=== PATIENT | female | born 1955 | race Caucasian/White ===

== ENCOUNTER → 2016-07-03 | Outpatient (CLI) | payer MEDICARE, MEDICAID ==
[~2016-07-03] MED LIST: ALBU8.5HRX IH; ALPR1TAB2 PO; ASPI-586 PO; CYCL10TA45 PO; LEVO125T6 PO; MELO7.5T46 PO; METO-272 PO; NITR0.4T SL; OXYC1TAB16 PO; PANT40TA2 PO; PRAV40TA2 PO; PREG200C PO; WARF5TAB PO; WATER PILL
--- OUTSIDE RECORDS SUMMARY | 2016-07-03 09:38 | XMS REPORT | Continuity of Care Document ---
Author Author [facility] Organization [facility] Address Unknown Phone Unavailable Care Team Providers Care Housesmith Name Role Phone SAMUEL THOMPSON DO PCP Insurance Providers Payer Name Policy Number Subscriber Name Relationship [employer] [id number] Shanita Perez 18 Self / Same As Patient Comm Crossover Enter Ins Name [id number] Shanita Perez 18 Self / Same As Patient Advance Directives Directive Response Recorded Date/Time Advance Directives No 12/15/15 6:52am Health Care Power of Link Cutter No 12/15/15 6:52am Organ Donor No 12/15/15 6:52am Problems No problem information available. Medications Current Home Medications Medication Dose Units Route Directions Days/Qty Instructions Start Date Metoprolol Succinate 50 Mg 50 Mg Oral Daily 12/20/14 Oxycodone Hcl/Acetaminophen 1 Each 1 Each Oral Every 4HRS as needed for Pain 12/20/14 Levothyroxine Sodium (Levothroid) 125 Mcg 1 Each Oral Daily 12/20/14 Albuterol Sulfate 8 Gm 8 Gm Inhalation as needed for Prn 12/20/14 Nitroglycerin 0.4 Mg 0.4 Mg Sublingual As Needed 12/20/14 Aspirin 81 Mg 81 Mg Oral 12/15/15 Pregabalin 200 Mg 200 Mg Oral Twice A Day 12/15/15 Pravastatin Sodium 40 Mg 40 Mg Oral Daily 12/15/15 Meloxicam 7.5 Mg 7.5 Mg Oral 12/15/15 [Water Pill] 12/15/15 Pantoprazole Sodium 40 Mg 40 Mg Oral Daily 12/15/15 Past Home Medications Medication Directions Ordered Status Warfarin Sodium 5 Mg Tablet, 5 Mg Oral Daily 12/20/14 Discontinued Alprazolam 1 Mg Tablet, 1 Mg Oral Three Times A Day 12/20/14 Discontinued Cyclobenzaprine Hcl 10 Mg Tablet, 10 Mg Oral Three Times A Day 12/20/14 Discontinued Social History Social History Problem Response Recorded Date/Time Recent Foreign Travel No 12/26/2015 8:58am Do you dip or chew tobacco? No 12/20/2014 12:00pm Hospital Discharge Instructions No hospital discharge instructions. Plan of Care Prescriptions See Medication Section Functional Status No functional status results. Allergies, Adverse Reactions, Alerts Allergen Type Severity Reaction Status Last Updated Iodinated Contrast Media - IV Dye Allergy Unknown Active 12/15/15 Morphine Allergy Unknown Active 12/15/15 Codeine Allergy Unknown Active 12/15/15 Aspirin Allergy Unknown Active 12/15/15 prednisone ([id number]) Allergy Unknown Active 12/20/14 Immunizations No immunization records. Vital Signs No known vital signs results. Results Laboratory Results Test Name Result Units Flags Reference Collection Date/Time Result Date/ Time Comments White Blood Count 6.2 10^3/uL 4.3-11.0 12/26/2015 9:12/26/2015 9: 23am Red Blood Count 5.07 10^6/uL 4.35-5.85 12/26/2015 9:12/26/2015 9: 23am Hemoglobin 15.0 G/DL 11.5-16.0 12/26/2015 9:12/26/2015 9:23am Hematocrit 45 % 35-52 12/26/2015 9:12/26/2015 9:23am Mean Corpuscular Volume 89 FL 80-99 12/26/2015 9:12/26/2015 9: 23am Mean Corpuscular Hemoglobin 30 PG 25-34 12/26/2015 9:12/26/2015 9: 23am Mean Corpuscular Hemoglobin Concent 33 G/DL 32-36 12/26/2015 9:04/2016 9:23am Red Cell Distribution Width 14.0 % 10.0-14.5 12/26/2015 9:2015 9:23am Platelet Count 283 10^3/uL 130-400 12/26/2015 9:12/26/2015 9:23am Mean Platelet Volume 11.0 FL H 7.4-10.4 12/26/2015 9:12/26/2015 9: 23am Neutrophils (%) (Auto) 54 % 42-75 12/26/2015 9:12/26/2015 9:23am Lymphocytes (%) (Auto) 31 % 12-44 12/26/2015 9:12/26/2015 9:23am Monocytes (%) (Auto) 9 % 0-12 12/26/2015 9:12/26/2015 9:23am Eosinophils (%) (Auto) 6 % 0-10 12/26/2015 9:12/26/2015 9:23am Basophils (%) (Auto) 0 % 0-10 12/26/2015 9:12/26/2015 9:23am Neutrophils # (Auto) 3.4 X 10^3 1.8-7.8 12/26/2015 9:12/26/2015 9: 23am Lymphocytes # (Auto) 1.9 X 10^3 1.0-4.0 12/26/2015 9:12/26/2015 9: 23am Monocytes # (Auto) 0.5 X 10^3 0.0-1.0 12/26/2015 9:12/26/2015 9: 23am Eosinophils # (Auto) 0.4 10^3/uL H 0.0-0.3 12/26/2015 9:12/26/2015 9 :23am Basophils # (Auto) 0.0 10^3/uL 0.0-0.1 12/26/2015 9:12/26/2015 9: 23am Sodium Level 138 MMOL/L 135-145 12/26/2015 9:12/26/2015 9:55am Potassium Level 4.5 MMOL/L 3.6-5.0 12/26/2015 9:12/26/2015 9:55am Chloride Level 104 MMOL/L 98-107 12/26/2015 9:12/26/2015 9:55am Carbon Dioxide Level 28 MMOL/L 21-32 12/26/2015 9:12/26/2015 9: 55am Anion Gap 6 MMOL/L 5-14 12/26/2015 9:12/26/2015 9:55am Blood Urea Nitrogen 26 MG/DL H 7-18 12/26/2015 9:12/26/2015 9:55am Creatinine 1.09 MG/DL 0.60-1.30 12/26/2015 9:12/26/2015 9:55am BUN/Creatinine Ratio 24 12/26/2015 9:12/26/2015 9:55am Estimat Glomerular Filtration Rate 51 12/26/2015 9:12/26/2015 9:55am GFR INTERPRETIVE DATA UNITS FOR ESTIMATED GFR (eGFR): mL/min/1.73 M2 REFERENCE RANGE FOR ESTIMATED GFR (eGFR) eGFR NORMAL eGFR >60 MODERATELY DECREASED eGFR 30-59 SEVERLY DECREASED eGFR 15-29 KIDNEY FAILURE <15 (OR DIALYSIS) Glucose Level 90 MG/DL 70-105 12/26/2015 9:12/26/2015 9:55am Calcium Level 10.7 MG/DL H 8.5-10.1 12/26/2015 9:12/26/2015 9:55am Total Bilirubin 0.5 MG/DL 0.1-1.0 12/26/2015 9:12/26/2015 9:55am Alkaline Phosphatase 82 U/L 40-136 12/26/2015 9:12/26/2015 9:55am Aspartate Amino Transf (AST/SGOT) 20 U/L 5-34 12/26/2015 9:2015 9:55am Alanine Aminotransferase (ALT/SGPT) 14 U/L 0-55 12/26/2015 9:12/25 9:55am Total Protein 7.1 G/DL 6.4-8.2 12/26/2015 9:12/26/2015 9:55am Albumin 4.5 G/DL 3.2-4.5 12/26/2015 9:12/26/2015 9:55am Thyroid Stimulating Hormone (TSH) 2.72 UIU/ML 0.35-4.94 12/26/2015 9: 15am 12/26/2015 10:14am Procedures No known history of procedures. Encounters Encounter Location Arrival/Admit Date Discharge/Depart Date Attending Provider Discharged Recurring [facility] 12/26/15 8:59am 11:59pm KAITLIN SANDHU N
--- NOTE | 2016-07-03 15:02 | Diagnostic Imaging Report ---
Left breast screening mammogram. The current study was also evaluated with a Computer Aided Detection (CAD) system. COMPARISON: 07/01/2015 and other prior exams. INDICATION: The patient has had a right mastectomy for breast cancer. FINDINGS: The left breast is composed of scattered fibroglandular densities. There are occasional benign-appearing calcifications. Allowing for technique and positional differences, no suspicious change is seen. IMPRESSION: No significant change. ACR BI-RADS Category 2: Benign findings. Result letter will be mailed to the patient. Note: At least 10% of breast cancer is not imaged by mammography. Dictated by: Dictated on workstation # [id number]
== END ==
LOC: RAD 09:35
PROVIDERS: ATTEND Internal Medicine Hematology & Oncology
DX: Z12.31 Encounter for screening mammogram for malignant neoplasm of breast (principal)

== ENCOUNTER → 2016-10-30 | Outpatient (CLI) | payer MEDICARE, MEDICAID ==
[~2016-10-30] VITALS: Ht 160 cm; Wt 80.3 kg
[~2016-10-30] MED LIST changes: +REGADENOSON 0.4 MG/5 ML SYR (LEXISCAN) IV ONE
[2016-10-30] MEDS: CATHETER FLUSH 10 ML SYR IV PRN ×2 (11:37→13:12)
[2016-10-30 13:09] VITALS: BP 146/88
--- NOTE | 2016-11-01 06:12 | STRESS TEST ---
DATE OF SERVICE: 10/30/2016 RESTING AND POST REGADENOSON TECHNETIUM 99M TETROFOSMIN SPECT CT IMAGING ORDERING PHYSICIAN: Anayeli Pineda APRN PRIMARY PHYSICIAN: Sherine Reynolds APRN OTHER PHYSICIAN: Dr. Hart. PROCEDURE: Resting and post regadenoson technetium 99m tetrofosmin spect CT imaging CLINICAL DIAGNOSES: Shortness of breath, palpitations. Baseline images were carried out after injection of 10.19 mCi of technetium-99m tetrofosmin. This was followed by 0.4 mg regadenoson and 32.4 mCi of technetium-99m tetrofosmin for stress imaging. The electrocardiogram showed sinus tachycardia at baseline. The electrocardiogram did not change significantly with the regadenoson infusion. She did not report any symptoms. Review of images at rest and following stress does not indicate any significant perfusion defects consistent with significant myocardial ischemia or infarction. Gated images show normal global left ventricular systolic function with normal regional wall motion. Left ventricular ejection fraction is calculated to be 64%. Left ventricular end-diastolic volume is 31 mL. TID is absent (1.05). CONCLUSIONS: 1. No evidence of any significant myocardial ischemia or infarction on this study. 2. Normal regional wall motion. 3. Normal global left ventricular systolic function with a calculated ejection fraction of 64%. 4. Normal left ventricular cavity size. Job ID: [id number] DocumentID: [id number] Dictated Date: 10/31/2016 09:08:28 Machine Shop Apprentice Date: 10/31/2016 19:46:34 Dictated By: BRENDA RIVAS MD, MA, FACP, FACC,
== END ==
LOC: CARD 09:46
PROVIDERS: ATTEND Nurse Practitioner Family
DX: R00.2 Palpitations (principal); R06.02 Shortness of breath; R00.0 Tachycardia, unspecified; Z72.0 Tobacco use
CPT/HCPCS: 78452; 93017

== ENCOUNTER → 2017-02-12 | Outpatient (CLI) | payer MEDICARE, MEDICAID ==
[~2017-02-12] MED LIST changes: -REGADENOSON 0.4 MG/5 ML SYR (LEXISCAN) IV ONE
--- NOTE | 2017-02-12 11:10 | Diagnostic Imaging Report ---
PROCEDURE: CT chest and abdomen without contrast. TECHNIQUE: Axial images were obtained from the thoracic inlet through the iliac crest without the administration of intravenous contrast. INDICATION: Breast cancer checkup. COMPARISON: Comparison made with prior examination 06/14/2016. FINDINGS: There is a 6 mm noncalcified nodular density in the right upper lobe on image 20 series 2. This is essentially unchanged compared to prior examination. There is an 8 mm noncalcified nodular density on image 27 series 2. This is decreased in size when compared to prior examination at which time it was 1.1 cm. There is also a stable 4 mm nodular density in lateral aspect of the right lower lobe on image 27 series 2. There are no other discrete pulmonary nodules, masses or infiltrates. There is no pleural or pericardial fluid. There is minimal perimediastinal scarring posteriorly along the medial aspect of the right lung. There is no pneumothorax. Thoracic aorta is normal in caliber. The heart size is normal. There are some minimal coronary artery calcifications. There are degenerative changes in the spine. There is hepatomegaly and fatty infiltration of the liver. There is cholelithiasis. There is no biliary ductal dilatation. Spleen is unremarkable. The pancreas and adrenal glands are unremarkable. The kidneys are normal in appearance. The abdominal aorta is nonaneurysmal and demonstrates moderate atherosclerotic calcification. Bowel gas pattern is nonspecific. There is now lytic appearance of the right iliac wing suspect for osseous metastatic disease. IMPRESSION: 1. Interval development of a relatively diffuse lytic process in the right iliac bone suspect for osseous metastatic disease. 2. Stable nodules in the right lung. 3. Cholelithiasis. 4. Hepatomegaly and fatty infiltration of the liver. Dictated by: Dictated on workstation # [id number]
--- NOTE | 2017-02-12 14:25 | Diagnostic Imaging Report ---
INDICATION: Breast cancer. TECHNIQUE: Anterior and posterior whole body planar imaging was performed after administration of 25.3 mCi of Tc99m MDP. FINDINGS: There is diffuse increased uptake in the medial aspect of the right iliac wing as well as about the right hip and acetabulum. There is some focal uptake in the lower thoracic spine and mid lumbar spine. Focal area of increased activity in the mid left femoral diaphysis. All of these areas are suspect for metastatic disease. There are a few questionable areas of increased activity in a posterior left rib as well as in the posterior calvarium which are nonspecific. There is physiologic uptake within the kidneys bilaterally with excretion into the bladder. IMPRESSION: Findings highly suspect for diffuse osseous metastatic disease particularly in the right hemipelvis and left femur. Additional likely areas of metastatic disease are seen in the lower thoracic spine and lumbar spine. Dictated by: Dictated on workstation # [id number]
== END ==
LOC: CARD 08:48
PROVIDERS: ATTEND Nurse Practitioner Adult Health
DX: C50.411 Malignant neoplasm of upper-outer quadrant of right female breast (principal)
CPT/HCPCS: 71250; 74150; 78306

== ENCOUNTER → 2017-02-12 | Outpatient (CLI) | payer MEDICARE, MEDICAID | LOC: CARD 08:45 | PROVIDERS: ATTEND Nurse Practitioner Family | DX: I35.1 Nonrheumatic aortic (valve) insufficiency (principal); R00.2 Palpitations; I10 Essential (primary) hypertension; R06.02 Shortness of breath | CPT/HCPCS: 93306 ==

== ENCOUNTER → 2017-03-13 | Outpatient (CLI) | payer MEDICARE, MEDICAID ==
[~2017-03-13] MED LIST changes: +IOHEXOL 350 MG/ML 100 ML (OMNIPAQUE 350) VIAL IV ONE; +NS 100 ML (IVPB) BAG IV ONE
--- NOTE | 2017-03-13 11:06 | Diagnostic Imaging Report ---
2 views of the left femur. INDICATION: Left femur pain FINDINGS: There is infiltrative abnormal lucency within the mid femoral shaft. With the history of breast cancer, this is concerning for metastatic disease. There is no fracture or impending fracture seen at this time. The proximal and distal joints appear unremarkable. IMPRESSION: Infiltrative pattern of lucency in the mid femoral shaft is concerning for metastatic disease. Report was faxed to office of Dr. Benítez by leandro at 11:08 AM. Dictated by: Dictated on workstation # [id number]
--- NOTE | 2017-03-13 12:36 | Diagnostic Imaging Report ---
PROCEDURE: CT pelvis without contrast. TECHNIQUE: Multiple contiguous axial images were obtained through the pelvis without the use of intravenous contrast. Sagittal and coronal reformations were performed. INDICATION: Right hip pain. History of breast cancer. FINDINGS: There is a destructive process in the right hip with expansion of the surrounding soft tissues centered in the right iliac bone with extension into the medial aspect along the iliac side of the right sacroiliac joints. There is also similar infiltrative lytic changes seen extending into the acetabulum and similar findings in the femoral head and neck on the right side. Subtle involvement of the left iliac bone is also suggested. There is erosion of the articular surface at the posterior aspect of the acetabulum. There is no subluxation or dislocation. IMPRESSION: There is diffuse osteolytic lesions involving the pelvis and proximal right femur with destructive changes in the upper mid aspect of the right ilium and suggestion of soft tissue component around the right iliacus muscle and the right gluteus muscles compatible with metastatic disease. Dictated by: Dictated on workstation # [id number]
== END ==
LOC: RAD 10:21
PROVIDERS: ATTEND Internal Medicine Hematology & Oncology
DX: R93.7 Abnormal findings on diagnostic imaging of other parts of musculoskeletal system (principal); M79.9 Soft tissue disorder, unspecified; Z85.3 Personal history of malignant neoplasm of breast
CPT/HCPCS: 72192; 73552; 99214

== ENCOUNTER 2017-03-14 10:12 | Outpatient (RCR) | payer MEDICARE, OTHER, MEDICAID ==
[2017-01-28 11:22] LABS: BASOPHILS % (AUTO) 1 % (0-10); EOSINOPHILS # (AUTO) 0.3 10^3/uL (0.0-0.3); EOSINOPHILS % (AUTO) 5 % (0-10); LYMPHOCYTES # (AUTO) 2.4 X 10^3 (1.0-4.0); LYMPHOCYTES % (AUTO) 41 % (12-44); MEAN CORPUSCULAR HEMOGLOBIN 28 PG (25-34); MEAN CORPUSCULAR HGB CONC 32 G/DL (32-36); MEAN CORPUSCULAR VOLUME 87 FL (80-99); MEAN PLATELET VOLUME 10.7 FL (7.4-10.4); MONOCYTES # (AUTO) 0.4 X 10^3 (0.0-1.0); MONOCYTES % (AUTO) 8 % (0-12); NEUTROPHILS # (AUTO) 2.8 X 10^3 (1.8-7.8); NEUTROPHILS % (AUTO) 47 % (42-75); PLATELET COUNT 375 10^3/uL (130-400); RED BLOOD COUNT 4.77 10^6/uL (4.35-5.85); RED CELL DISTRIBUTION WIDTH 16.8 % (10.0-14.5); WHITE BLOOD COUNT 5.9 10^3/uL (4.3-11.0)
[2017-01-28 11:55] LABS: ALBUMIN 3.9 GM/DL (3.2-4.5); BILIRUBIN,TOTAL 0.3 MG/DL (0.1-1.0); CALCIUM 11.2 MG/DL (8.5-10.1); CREATININE SERUM 0.94 MG/DL (0.60-1.30); POTASSIUM 4.3 MMOL/L (3.6-5.0); TOTAL PROTEIN 7.1 GM/DL (6.4-8.2)
[2017-02-19 17:18] LABS: BASOPHILS % (AUTO) 1 % (0-10); EOSINOPHILS # (AUTO) 0.3 10^3/uL (0.0-0.3); EOSINOPHILS % (AUTO) 5 % (0-10); LYMPHOCYTES # (AUTO) 2.8 X 10^3 (1.0-4.0); LYMPHOCYTES % (AUTO) 39 % (12-44); MEAN CORPUSCULAR HEMOGLOBIN 28 PG (25-34); MEAN CORPUSCULAR HGB CONC 32 G/DL (32-36); MEAN CORPUSCULAR VOLUME 88 FL (80-99); MEAN PLATELET VOLUME 11.4 FL (7.4-10.4); MONOCYTES # (AUTO) 0.5 X 10^3 (0.0-1.0); MONOCYTES % (AUTO) 7 % (0-12); NEUTROPHILS # (AUTO) 3.6 X 10^3 (1.8-7.8); NEUTROPHILS % (AUTO) 49 % (42-75); PLATELET COUNT 377 10^3/uL (130-400); RED BLOOD COUNT 4.82 10^6/uL (4.35-5.85); WHITE BLOOD COUNT 7.2 10^3/uL (4.3-11.0)
[2017-02-19 17:37] LABS: ALBUMIN 3.9 GM/DL (3.2-4.5); BILIRUBIN,TOTAL 0.2 MG/DL (0.1-1.0); CALCIUM 10.5 MG/DL (8.5-10.1); CREATININE SERUM 1.16 MG/DL (0.60-1.30); POTASSIUM 3.5 MMOL/L (3.6-5.0); TOTAL PROTEIN 7.3 GM/DL (6.4-8.2)
[~2017-03-14 10:12] MED LIST changes: -IOHEXOL 350 MG/ML 100 ML (OMNIPAQUE 350) VIAL IV ONE; -NS 100 ML (IVPB) BAG IV ONE
== END 2017-03-16 | disposition home or self-care (01) ==
LOC: ONC 10:12
PROVIDERS: ATTEND Internal Medicine Hematology & Oncology
DX: C79.51 Secondary malignant neoplasm of bone (principal); Z85.3 Personal history of malignant neoplasm of breast; E03.9 Hypothyroidism, unspecified; R91.8 Other nonspecific abnormal finding of lung field; M85.80 Other specified disorders of bone density and structure, unspecified site; I10 Essential (primary) hypertension; J44.9 Chronic obstructive pulmonary disease, unspecified; F17.210 Nicotine dependence, cigarettes, uncomplicated; Z90.11 Acquired absence of right breast and nipple; Z92.21 Personal history of antineoplastic chemotherapy; Z92.3 Personal history of irradiation; Z79.899 Other long term (current) drug therapy; Z08 Encounter for follow-up examination after completed treatment for malignant neoplasm
CPT/HCPCS: 36415; 77290; 77334; 80053; 85025; 86300; 99213

== ENCOUNTER 2017-05-27 08:47 | Outpatient (RCR) | payer MEDICARE, MEDICAID ==
[2017-04-22 09:38] LABS: BASOPHILS % (AUTO) 0 % (0-10); EOSINOPHILS # (AUTO) 0.3 10^3/uL (0.0-0.3); EOSINOPHILS % (AUTO) 5 % (0-10); HEMATOCRIT 43 % (35-52); LYMPHOCYTES % (AUTO) 18 % (12-44); MEAN CORPUSCULAR HEMOGLOBIN 28 PG (25-34); MEAN CORPUSCULAR HGB CONC 32 G/DL (32-36); MEAN CORPUSCULAR VOLUME 87 FL (80-99); MEAN PLATELET VOLUME 10.4 FL (7.4-10.4); MONOCYTES # (AUTO) 0.3 X 10^3 (0.0-1.0); MONOCYTES % (AUTO) 5 % (0-12); NEUTROPHILS # (AUTO) 4.1 X 10^3 (1.8-7.8); NEUTROPHILS % (AUTO) 71 % (42-75); PLATELET COUNT 343 10^3/uL (130-400); RED BLOOD COUNT 4.99 10^6/uL (4.35-5.85); RED CELL DISTRIBUTION WIDTH 16.6 % (10.0-14.5); WHITE BLOOD COUNT 5.7 10^3/uL (4.3-11.0)
[2017-04-22 09:58] LABS: ALANINE AMINOTRANSFERASE 25 U/L (0-55); ALBUMIN 3.7 GM/DL (3.2-4.5); ALKALINE PHOSPHATASE 154 U/L (40-136); BILIRUBIN,TOTAL 0.2 MG/DL (0.1-1.0); BUN/CREATININE RATIO 13; CALCIUM 10.6 MG/DL (8.5-10.1); CARBON DIOXIDE 26 MMOL/L (21-32); CHLORIDE 106 MMOL/L (98-107); CREATININE SERUM 0.85 MG/DL (0.60-1.30); GFR ESTIMATED > 60; GLUCOSE 136 MG/DL (70-105); POTASSIUM 4.1 MMOL/L (3.6-5.0); SODIUM 143 MMOL/L (135-145); TOTAL PROTEIN 6.8 GM/DL (6.4-8.2)
[~2017-05-27 08:47] MED LIST changes: -GADOBUTROL 10 MMOL/10 ML (GADAVIST) VIAL IV ONE
[2017-05-27 09:14] LABS: BASOPHILS % (AUTO) 1 % (0-10); EOSINOPHILS % (AUTO) 2 % (0-10); HEMATOCRIT 42 % (35-52); HEMOGLOBIN 13.7 G/DL (11.5-16.0); LYMPHOCYTES # (AUTO) 0.6 X 10^3 (1.0-4.0); LYMPHOCYTES % (AUTO) 30 % (12-44); MEAN CORPUSCULAR HEMOGLOBIN 29 PG (25-34); MEAN CORPUSCULAR HGB CONC 33 G/DL (32-36); MEAN CORPUSCULAR VOLUME 89 FL (80-99); MEAN PLATELET VOLUME 10.2 FL (7.4-10.4); MONOCYTES # (AUTO) 0.1 X 10^3 (0.0-1.0); MONOCYTES % (AUTO) 3 % (0-12); NEUTROPHILS # (AUTO) 1.3 X 10^3 (1.8-7.8); NEUTROPHILS % (AUTO) 66 % (42-75); PLATELET COUNT 274 10^3/uL (130-400); RED BLOOD COUNT 4.73 10^6/uL (4.35-5.85); RED CELL DISTRIBUTION WIDTH 18.9 % (10.0-14.5)
[2017-05-27 09:35] LABS: ALANINE AMINOTRANSFERASE 16 U/L (0-55); ALBUMIN 3.9 GM/DL (3.2-4.5); ALKALINE PHOSPHATASE 207 U/L (40-136); BILIRUBIN,TOTAL 0.3 MG/DL (0.1-1.0); BUN/CREATININE RATIO 13; CALCIUM 11.3 MG/DL (8.5-10.1); CARBON DIOXIDE 28 MMOL/L (21-32); CHLORIDE 106 MMOL/L (98-107); CREATININE SERUM 0.83 MG/DL (0.60-1.30); GFR ESTIMATED > 60; GLUCOSE 129 MG/DL (70-105); POTASSIUM 4.2 MMOL/L (3.6-5.0); SODIUM 142 MMOL/L (135-145); TOTAL PROTEIN 7.6 GM/DL (6.4-8.2)
[2017-05-27] MEDS ORDERED: NS IV 1000 ML (CANCER CTR) 1,000 ML ONE (10:28)
[2017-05-27] MEDS ORDERED: DENOSUMAB 120 MG/1.7 ML (XGEVA) SQ ONE (13:44)
== END 2017-06-17 | disposition home or self-care (01) ==
LOC: ONC 08:47
PROVIDERS: ATTEND Internal Medicine Hematology & Oncology
DX: Z51.0 Encounter for antineoplastic radiation therapy (principal); C79.51 Secondary malignant neoplasm of bone; Z85.3 Personal history of malignant neoplasm of breast; R91.8 Other nonspecific abnormal finding of lung field; E03.9 Hypothyroidism, unspecified; I10 Essential (primary) hypertension; J44.9 Chronic obstructive pulmonary disease, unspecified; F17.210 Nicotine dependence, cigarettes, uncomplicated; Z90.11 Acquired absence of right breast and nipple; Z92.21 Personal history of antineoplastic chemotherapy; Z79.899 Other long term (current) drug therapy
CPT/HCPCS: 36415; 77295; 77300; 77334; 77336; 77417; 77470; 80053; 85025; 86300; 96360; 96361; 96372; 99213

== ENCOUNTER → 2017-05-27 | Outpatient (CLI) | payer MEDICARE, MEDICAID ==
[~2017-05-27] MED LIST changes: +GADOBUTROL 10 MMOL/10 ML (GADAVIST) VIAL IV ONE
--- NOTE | 2017-05-27 13:52 | Diagnostic Imaging Report ---
PROCEDURE: MR imaging of the brain with and without contrast. TECHNIQUE: Multiplanar/multisequence MR imaging of the brain was performed with and without contrast. INDICATION: Breast cancer. CONTRAST: 10 mL of Gadovist was administered intravenously. FINDINGS: There are multiple foci of diffusion restriction seen within the right frontal and right parietal region with associated T2 hyperintense signal and no contrast enhancement, suggestive of an acute infarct. This is mostly within the MCA distribution close to the watershed area, particularly posteriorly between the MCA and REMOTELY OPERATED VEHICLE distribution. Tiny lacunar infarcts on the contralateral side in the left parietal region are also suggested. There are background chronic appearing periventricular white matter ischemic changes. No mass effect or edema. The brainstem and cerebellum appear unremarkable. The central vascular flow-voids appear grossly unremarkable. The left vertebral artery is dominant with a very small right vertebral artery identified. There is no enhancing mass to suggest metastatic disease intra-axially or in the extra-axial space. The pituitary gland is normal in size. No hypothalamic or pineal region mass. IMPRESSION: Patchy small areas of acute infarction are seen in the left frontal and left parietal regions and minimal lacunar infarcts are also seen in the right parietal region. Consider the possibility of an embolic phenomena or watershed infarcts. The findings were discussed with Dr. Dawson at time of dictation. Dictated by: Dictated on workstation # [id number]
--- NOTE | 2017-05-27 16:16 | Diagnostic Imaging Report ---
PROCEDURE: US Carotid Duplex Bilateral. TECHNIQUE: Multiple real-time grayscale images were obtained over the carotid arteries in various projections bilaterally. Additional duplex Doppler and color Doppler images were also obtained. INDICATION: Left leg weakness. FINDINGS: Please note that the lower aspect of the left common carotid artery is obscured. There is reversal of flow in the left external iliac artery and bidirectional flow in the proximal and distal segments of the left common carotid artery and slow velocity with diminished waveforms in the left internal carotid artery. The proximal left common carotid artery is not well seen. The right common carotid artery demonstrates a prominent plaque at mid common carotid artery level with significant increased velocity to 553 cm/s suggestive of high-grade stenosis. The ICA and ECA on the right side are patent. Peak systolic velocities in the right ICA is 102, 83 and 83 cm/s from proximal to distal and on the left are 16, 25 and 31 cm/s. The vertebral arteries demonstrate antegrade flow on the left and the right vertebral artery is not visible. IMPRESSION: 1. There is reversal of flow in the left external carotid artery and diminished flow in the left internal carotid artery suspicious for occlusion or critical high-grade stenosis in the proximal aspect of the left common carotid artery. 2. Findings compatible with high-grade stenosis in the mid right common carotid artery. 3. CTA evaluation is recommended. The findings were discussed with Dr. Benítez at time of dictation. Dictated by: Dictated on workstation # [id number]
== END ==
LOC: RAD 12:33
PROVIDERS: ATTEND Internal Medicine Hematology & Oncology
DX: G45.9 Transient cerebral ischemic attack, unspecified (principal); C50.411 Malignant neoplasm of upper-outer quadrant of right female breast; C79.51 Secondary malignant neoplasm of bone; I63.8 Other cerebral infarction
CPT/HCPCS: 70553; 93880

== ENCOUNTER → 2017-05-29 | Outpatient (CLI) | payer MEDICARE, MEDICAID | LOC: RAD 11:39 | PROVIDERS: ATTEND Internal Medicine Hematology & Oncology | DX: Z53.8 Procedure and treatment not carried out for other reasons (principal) ==

== ENCOUNTER 2017-08-20 07:03 | Day surgery (SDC) | payer MEDICARE, MEDICAID ==
[~2017-08-20] VITALS: Ht 160 cm; Wt 81.6 kg
[2017-08-20] VITALS (12 sets, daily range): BP systolic 107–174; BP diastolic 61–95
[2017-08-20] MEDS ORDERED: LIDOCAINE 1% INJ 50 ML (XYLOCAINE) VIAL ONE (07:06)
[2017-08-20] MEDS ORDERED: NS IV 1000 ML 1,000 ML ONE (07:06)
[2017-08-20] MEDS ORDERED: HEParin (CATH LAB) 2,000 ML IV ONE (07:07)
--- OUTSIDE RECORDS SUMMARY | 2017-08-20 07:07 | XMS REPORT ---
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 Medications Active Name Start Date Estimated Completion Date SIG Comments Nitrostat Sublingual tablet, sublingual 0.[address] 1 tablet (0.3 mg) by sublingual route 5-10 minutes prior to activities which might precipitate an attack alprazolam Oral tablet 1 mg take 1 tablet (1 mg) by oral route 3 times per day cyclobenzaprine Oral tablet 10 mg take 1 tablet (10 mg) by oral route 3 times per day Synthroid Oral tablet 125 mcg take 1 tablet (125 mcg) by oral route once daily metoprolol tartrate oral tablet 50 mg take 1 tablet (50 mg) by oral route daily oxycodone-acetaminophen oral tablet 7.5-325 mg take 1 tablet by oral route every 6 hours as needed not to exceed 8 tablets per 24hrs ProAir HFA inhalation HFA aerosol inhaler 90 mcg/actuation inhale 1 puff by inhalation route every 6 hours as needed warfarin oral tablet 5 mg take 1 tablet (5 mg) by oral route once daily Name Start Date Expiration Date SIG Comments Voltaren Topical Gel 1 % apply 4 gram to the affected area(s) by topical route 4 times per day Neurontin oral capsule 300 mg 06/24/2013 12/21/2013 take 1 capsule by oral route at hs x 1 week, increase to BID on week two, begin TID dosing on week three hydrocodone-acetaminophen oral tablet 10-325 mg 01/19/2014 04/19/2014 take 1 tablet by oral route every 4 hours as needed for pain for 30 days Discontinued Name Start Date Discontinued Date SIG Comments Arimidex Oral tablet 1 mg 01/06/2014 take 1 tablet (1 mg) by oral route once daily Xanax Oral tablet 0.5 mg 03/26/2013 hydrocodone-acetaminophen Oral tablet 10-500 mg 01/19/2014 take 1 tablet by oral route every 6 hours as needed for pain levothyroxine Oral tablet 25 mcg 03/26/2013 Advair Diskus Inhalation Disk with Device 100-50 mcg/dose 03/26/2013 simvastatin Oral tablet 5 mg 03/26/2013 take 1 tablet (5 mg) by oral route once daily in the evening Advair Diskus Inhalation Disk with Device 250-50 mcg/dose 06/02/2014 inhale 1 puff by inhalation route 2 times per day in the morning and evening approximately 12 hours apart Prozac Oral capsule 40 mg 01/06/2014 take 1 capsule (40 mg) by oral route once daily in the morning Zocor Oral tablet 10 mg 03/12/2014 take 1 tablet (10 mg) by oral route once daily in the evening enalapril maleate Oral tablet 10 mg 03/27/2013 take 1 tablet (10 mg) by oral route once daily meloxicam Oral tablet 15 mg 03/27/2013 take 1 tablet (15 mg) by oral route once daily Fosamax Oral tablet 70 mg 03/12/2014 take 1 tablet (70 mg) by oral route once weekly in the morning, at least 30 min before first food, beverage, or medication of day Aspir-81 Oral tablet,delayed release (DR/EC) 81 mg 03/12/2014 take 1 tablet (81 mg) by oral route once daily Calcium 600 + D(3) Oral capsule 600 mg calcium- 200 unit 03/12/2014 take 1 capsule by oral route daily Stool Softener Oral capsule 100 mg 03/12/2014 take 1 capsule (100 mg) by oral route once daily ferrous sulfate Oral tablet 325 mg (65 mg iron) 03/12/2014 take 1 tablet by oral route daily melatonin Oral tablet 3 mg 03/12/2014 take 1 tablet by oral route once a day (at bedtime) gabapentin oral capsule 100 mg 01/06/2014 03/12/2014 take 3 capsules by oral route QHS tramadol oral tablet 50 mg 07/28/2014 take 2 tablets (100 mg) by oral route every 8 hours as needed methylprednisolone oral tablet 4 mg 11/10/2014 Bactrim DS oral tablet 800-160 mg 11/10/2014 take 1 tablet by oral route 2 times per day Problem List Description Status Onset Spinal stenosis, lumbar region Active Depression with Anxiety Active Chronic Obstructive Pulmonary Disease Active Thyroid disorder Active Gastroesophageal Reflux Active hip pain Active Leg Pain Active Sciatica Active Vital Signs Date Time BP-Sys(mm[Hg] BP-Heather(mm[Hg]) HR(bpm) RR(rpm) Temp WT HT HC BMI BSA BMI Percentile O2 Sat(%) 11/10/2014 11:46:00 AM 122 mmHg 76 mmHg 80 bpm 18 rpm 96.7 F 170 lbs 62 in 31.09 kg/m2 1.84 m2 09/27/2014 1:33:00 PM 112 mmHg 68 mmHg 104 bpm 18 rpm 96.7 F 170.25 lbs 62 in 31.1388 kg/m 1.838 m 07/28/2014 10:07:00 AM 162 mmHg 90 mmHg 79 bpm 16 rpm 97.6 F 174 lbs 62 in 31.82 kg/m2 1.86 m2 03/12/2014 9:47:00 AM 118 mmHg 70 mmHg 80 bpm 16 rpm 97.2 F 162 lbs 62 in 29.6299 kg/m 1.7929 m 01/06/2014 10:13:00 AM 124 mmHg 80 mmHg 70 bpm 16 rpm 96.8 F 161 lbs 62 in 29.45 kg/m2 1.79 m2 11/11/2013 10:50:00 AM 110 mmHg 60 mmHg 66 bpm 16 rpm 96.8 F 163.5 lbs 62 in 29.9042 kg/m 1.8012 m 07/29/2013 3:26:00 PM 90 mmHg 60 mmHg 68 bpm 18 rpm 97.1 F 154.125 lbs 62 in 28.19 kg/m2 1.75 m2 06/24/2013 2:09:00 PM 128 mmHg 80 mmHg 72 bpm 16 rpm 96.9 F 158 lbs 62 in 28.8983 kg/m 1.7706 m 03/27/2013 10:56:00 AM 126 mmHg 80 mmHg 56 bpm 16 rpm 97 F 145.375 lbs 62 in 26.59 kg/m2 1.70 m2 03/23/2013 9:32:00 AM 140 mmHg 82 mmHg 111 bpm 18 rpm 97.4 F 144 lbs 62 in 26.3377 kg/m 1.6904 m 96 % Social History Name Description Comments denies alcohol use Tobacco Former smoker stopped one month ago, smoked for 47 years Grown Children lives with family member recieving Social Security Disability [employer] school graduate Denies illicit substance abuse Did not serve in History of Procedures Date Ordered Description Order Status 03/27/2013 12:00 AM COMPLETE CBC W/AUTO DIFF WBC Reviewed 03/27/2013 12:00 AM COMPREHEN METABOLIC PANEL Reviewed 03/27/2013 12:00 AM RBC SED RATE AUTOMATED Reviewed 03/27/2013 12:00 AM MRI LUMBAR SPINE W/O & W/DYE Reviewed 11/19/2013 12:00 AM INJ TRIGGER POINT 1/2 MUSCL Reviewed 01/06/2014 12:00 AM INJECT TRIGGER POINTS 3/> Reviewed 03/12/2014 12:00 AM INJ TRIGGER POINT 1/2 MUSCL Reviewed Results Summary Data and Description Results 03/27/2013 12:35 PM WBC 8.7 RBC 4.21 HGB 12.40 g/dLHCT 38.20 %MCV 91.0 fLMCH 29.50 pgMCHC 32.50 g/dLRDW CV 14.40 %MPV 10.10 fLPLT 356 %NEUT 61.80 %%LYMP 25.80 %%MONO 6.90 %%EOS 5.20 %%BASO 0.30 %#NEUT 5.37 #LYMP 2.24 #MONO 0.60 #EOS 0.45 #BASO 0.03 SEDRATE 22.0 mm/hrGLUCOSE 96.0 mg/dLSODIUM 143.0 mmol/ LPOTASSIUM 3.80 mmol/LCHLORIDE 107.0 mmol/LCO2 26.0 mmol/LBUN 9.0 mg/ dLCREATININE 0.80 mg/dLSGOT/AST 22.0 IU/LSGPT/ALT 26.0 IU/LALK PHOS 91.0 IU/ LTOTAL PROTEIN 7.50 g/dLALBUMIN 4.10 g/dLTOTAL BILI 0.20 mg/dLCALCIUM 10.40 mg/ dLeGFR >60 mL/min/1.73 m2 History Of Immunizations Not available. History of Past Illness Name Date of Onset Comments Breast Cancer, Female Spinal stenosis, lumbar region Gastroesophageal Reflux Chronic Obstructive Pulmonary Disease UTI Sepsis Myocardial Infarction Depression with Anxiety Thyroid disorder Sciatica ruptured disc Leg Pain hip pain Anemia Resolved Urinary Tract Infection Mar 23 2013 9:50AM Lumbar spinal stenosis Mar 27 2013 11:09AM Lumbar Radiculitis Mar 27 2013 11:09AM Fatigue Mar 27 2013 11:09AM Cervical Disorder Mar 27 2013 11:09AM Lumbar spinal stenosis Jun 24 2013 2:19PM Lumbar Radiculitis Jun 24 2013 2:19PM Cervical Disorder Jun 24 2013 2:19PM Lumbar spinal stenosis Jul 29 2013 3:29PM Lumbar Radiculitis Jul 29 2013 3:29PM Cervical Disorder Jul 29 2013 3:29PM Lumbar spinal stenosis Nov 11 2013 10:51AM Lumbar Radiculitis Nov 11 2013 10:51AM Cervical Disorder Nov 11 2013 10:51AM Myofascial pain Nov 19 2013 2:02PM Cervical spondylosis without myelopathy Nov 19 2013 2:02PM Lumbar spinal stenosis Jan 06 2014 10:15AM Lumbar Radiculitis Jan 06 2014 10:15AM Cervical Disorder Jan 06 2014 10:15AM Myofascial pain Jan 06 2014 12:11PM Myofascial pain Sep 2013 10:53AM Lumbar spinal stenosis Sep 2013 9:50AM Lumbar Radiculitis Sep 2013 9:50AM Myofascial pain Sep 2013 9:50AM Cervical Disorder Sep 2013 9:50AM Myofascial pain Jun 02 2014 10:07AM Myofascial pain Jul 28 2014 10:13AM Lumbar spinal stenosis Sep 27 2014 1:39PM Lumbar Radiculitis Sep 27 2014 1:39PM Myofascial pain Sep 27 2014 1:39PM Cervical Disorder Sep 27 2014 1:39PM Myofascial pain Nov 10 2014 11:48AM Cervicalgia Nov 10 2014 11:48AM Payers Insurance Name Company Name Plan Name Plan Number Policy Number Policy Group Number Start Date Medicare Part A Medicare Part A [id number] Saturday, 2009 [facility] [id number] N/A Medicare Part B Medicare Of [place] [id number] N/A History of Encounters Visit Date Visit Type Provider 11/10/2014 Office visit Julissa DAILEY 09/27/2014 Office visit Julissa DAILEY 07/28/2014 Office visit Julissa DAILEY 06/02/2014 Office visit Julissa DAILEY 03/12/2014 Office visit Julissa DAILEY 01/06/2014 Office visit Julissa DAILEY 11/11/2013 Office visit Julissa DAILEY 07/29/2013 Office visit Julissa DAILEY 06/24/2013 Office visit Julissa DAILEY 04/23/2013 [facility] 04/23/2013 [facility] Fran Varma MD 03/27/2013 Office visit Julissa DAILEY 03/23/2013 Office visit Desirae Burger APRN 02/28/2013 [facility] Geneva Araujo MD
--- OUTSIDE RECORDS SUMMARY | 2017-08-20 07:11 | XMS REPORT | Continuity of Care Document ---
Author Author [facility] Address Unknown Phone Unavailable Allergies Active Description Code Type Severity Reaction Onset Reported/Identified Relationship to Patient Clinical Status Yes prednisone [id number] Drug Allergy Unknown N/A 12/20/2014 Yes aspirin [id number] Drug Allergy Unknown N/A 12/15/2015 Yes codeine [id number] Drug Allergy Unknown N/A 12/15/2015 Yes Iodinated Contrast Media - IV Dye [id number] Drug Allergy Unknown N/A 12/14 Yes Iodinated Contrast Media - Oral and [id number] Drug Allergy Unknown N/A Yes Iodinated Contrast- Oral and IV Dye [id number] Drug Allergy Unknown N/A Yes morphine [id number] Drug Allergy Unknown N/A 12/15/2015 Medications There is no data. Problems Date Dx Coded Attending Type Code Diagnosis Diagnosed By 10/27/2008 Ot 174.9 10/27/2008 Ot 515 10/27/2008 Ot 722.0 10/27/2008 Ot 733.90 10/27/2008 Ot E879.2 10/27/2008 Ot V15.3 10/27/2008 Ot V45.71 10/27/2008 Ot V58.69 10/27/2008 Ot V87.41 04/26/2009 Ot 174.9 MALIGN NEOPL BREAST NOS 04/26/2009 Ot 521.00 UNSPEC DENTAL CARIES 04/26/2009 Ot 733.90 BONE CARTILAGE DIS NOS 04/26/2009 Ot V15.3 HX OF IRRADIATION 04/26/2009 Ot V45.71 ACQUIRED ABSENCE OF BREAST AND NIPPLE 04/26/2009 Ot V58.69 OTH MED,LT, CURRENT USE 04/26/2009 Ot V87.41 PERSONAL HISTORY OF ANTINEOPLASTIC CHEMO 05/29/2009 Ot 174.9 MALIGN NEOPL BREAST NOS 05/29/2009 Ot V58.81 FIT/ADJ VASCULAR CATHETER 07/21/2009 Ot 174.9 MALIGN NEOPL BREAST NOS 07/21/2009 Ot 305.1 TOBACCO USE DISORDER 07/21/2009 Ot 733.90 BONE CARTILAGE DIS NOS 07/21/2009 Ot V15.3 HX OF IRRADIATION 07/21/2009 Ot V45.71 ACQUIRED ABSENCE OF BREAST AND NIPPLE 07/21/2009 Ot V58.69 OTH MED,LT, CURRENT USE 07/21/2009 Ot V87.41 PERSONAL HISTORY OF ANTINEOPLASTIC CHEMO 08/30/2009 Ot 174.9 MALIGN NEOPL BREAST NOS 08/30/2009 Ot 733.90 BONE CARTILAGE DIS NOS 08/30/2009 Ot V82.81 SCREENING FOR OSTEOPOROSIS 11/27/2009 Ot 174.9 MALIGN NEOPL BREAST NOS 05/18/2013 KAITLIN SANDHU N Ot 174.9 MALIGN NEOPL BREAST NOS 05/20/2014 EDSON, KAITLIN N Ot 174.9 05/20/2014 EDSONKAITLIN N Ot 174.9 05/20/2014 EDSON KAITLIN N Ot 174.9 09/06/2014 Ot 174.9 09/06/2014 Ot 521.00 09/06/2014 Ot 733.90 09/06/2014 Ot V15.3 09/06/2014 Ot V45.71 09/06/2014 Ot V58.69 09/06/2014 Ot V87.41 09/06/2014 Ot 174.9 09/06/2014 Ot V58.81 09/06/2014 Ot 174.9 09/06/2014 Ot 174.9 09/06/2014 Ot 280.9 09/06/2014 Ot 305.1 09/06/2014 Ot 724.00 09/06/2014 Ot 733.90 09/06/2014 Ot 785.6 09/06/2014 Ot V45.71 09/06/2014 Ot 174.9 09/06/2014 Ot 174.9 09/06/2014 Ot 285.9 09/06/2014 Ot 733.90 09/06/2014 Ot 786.50 09/06/2014 Ot V15.3 09/06/2014 Ot V45.71 09/06/2014 Ot V58.69 09/06/2014 Ot V87.41 09/06/2014 Ot 401.9 09/06/2014 Ot 786.50 09/06/2014 Ot V58.69 09/06/2014 Ot 174.9 09/06/2014 Ot 719.40 09/06/2014 Ot 733.90 09/06/2014 Ot 780.79 09/06/2014 Ot V15.3 09/06/2014 Ot V45.71 09/06/2014 Ot V58.69 09/06/2014 Ot V87.41 09/06/2014 Ot 733.90 09/06/2014 Ot V10.3 09/06/2014 Ot V76.11 09/06/2014 Ot 079.4 09/06/2014 Ot 174.9 09/06/2014 Ot 196.3 09/06/2014 Ot 733.90 09/06/2014 Ot V15.3 09/06/2014 Ot V45.71 09/06/2014 Ot V58.69 09/06/2014 Ot V87.41 09/06/2014 Ot 079.4 09/06/2014 Ot 174.9 09/06/2014 Ot 196.3 09/06/2014 Ot 465.9 09/06/2014 Ot 733.90 09/06/2014 Ot V15.3 09/06/2014 Ot V45.71 09/06/2014 Ot V58.69 09/06/2014 Ot V87.41 09/06/2014 Ot V10.3 09/06/2014 Ot V45.71 09/06/2014 Ot V76.11 09/06/2014 Ot 174.9 09/06/2014 Ot 196.3 09/06/2014 Ot 305.1 09/06/2014 Ot 496 09/06/2014 Ot 733.90 09/06/2014 Ot V15.3 09/06/2014 Ot V45.71 09/06/2014 Ot V58.69 09/06/2014 Ot V87.41 09/06/2014 KAITLIN SANDHU Ot 174.9 09/06/2014 ABRAHAN AIKEN PHYSICAL INTEGRATION PRACTITIONER Ot 174.9 09/06/2014 ABRAHAN AIKEN PHYSICAL INTEGRATION PRACTITIONER Ot 196.3 09/06/2014 ABRAHAN AIKEN PHYSICAL INTEGRATION PRACTITIONER Ot 305.1 09/06/2014 ABRAHAN AIKEN PHYSICAL INTEGRATION PRACTITIONER Ot 496 09/06/2014 ABRAHAN AIKEN PHYSICAL INTEGRATION PRACTITIONER Ot 733.90 09/06/2014 ABRAHAN AIKEN PHYSICAL INTEGRATION PRACTITIONER Ot V15.3 09/06/2014 ABRAHAN AIKEN PHYSICAL INTEGRATION PRACTITIONER Ot V45.71 09/06/2014 ABRAHAN AIKEN PHYSICAL INTEGRATION PRACTITIONER Ot V58.69 09/06/2014 ABRAHAN AIKEN PHYSICAL INTEGRATION PRACTITIONER Ot V87.41 09/06/2014 ABRAHAN AIKEN PHYSICAL INTEGRATION PRACTITIONER Ot 733.90 09/06/2014 ABRAHAN AIKEN PHYSICAL INTEGRATION PRACTITIONER Ot V76.12 09/06/2014 ABRAHAN AIKEN PHYSICAL INTEGRATION PRACTITIONER Ot 174.9 09/06/2014 ABRAHAN AIKEN PHYSICAL INTEGRATION PRACTITIONER Ot 174.9 09/06/2014 ABRAHAN AIKEN PHYSICAL INTEGRATION PRACTITIONER Ot 723.1 09/06/2014 ABRAHAN AIKEN PHYSICAL INTEGRATION PRACTITIONER Ot 780.4 09/06/2014 ABRAHAN AIKEN PHYSICAL INTEGRATION PRACTITIONER Ot 784.0 09/06/2014 ABRAHAN AIKEN PHYSICAL INTEGRATION PRACTITIONER Ot 174.9 09/06/2014 ABRAHAN AIKEN PHYSICAL INTEGRATION PRACTITIONER Ot 723.1 09/06/2014 ABRAHAN AIKEN PHYSICAL INTEGRATION PRACTITIONER Ot 780.4 09/06/2014 ABRAHAN AIKEN PHYSICAL INTEGRATION PRACTITIONER Ot 784.0 09/06/2014 ABRAHAN AIKEN PHYSICAL INTEGRATION PRACTITIONER Ot 723.1 09/07/2014 Ot 174.9 09/07/2014 Ot 521.00 09/07/2014 Ot 733.90 09/07/2014 Ot V15.3 09/07/2014 Ot V45.71 09/07/2014 Ot V58.69 09/07/2014 Ot V87.41 09/07/2014 Ot 174.9 09/07/2014 Ot V58.81 09/07/2014 Ot 174.9 09/07/2014 Ot 174.9 09/07/2014 Ot 280.9 09/07/2014 Ot 305.1 09/07/2014 Ot 724.00 09/07/2014 Ot 733.90 09/07/2014 Ot 785.6 09/07/2014 Ot V45.71 09/07/2014 Ot 174.9 09/07/2014 Ot 174.9 09/07/2014 Ot 285.9 09/07/2014 Ot 733.90 09/07/2014 Ot 786.50 09/07/2014 Ot V15.3 09/07/2014 Ot V45.71 09/07/2014 Ot V58.69 09/07/2014 Ot V87.41 09/07/2014 Ot 401.9 09/07/2014 Ot 786.50 09/07/2014 Ot V58.69 09/07/2014 Ot 174.9 09/07/2014 Ot 719.40 09/07/2014 Ot 733.90 09/07/2014 Ot 780.79 09/07/2014 Ot V15.3 09/07/2014 Ot V45.71 09/07/2014 Ot V58.69 09/07/2014 Ot V87.41 09/07/2014 Ot 733.90 09/07/2014 Ot V10.3 09/07/2014 Ot V76.11 09/07/2014 Ot 079.4 09/07/2014 Ot 174.9 09/07/2014 Ot 196.3 09/07/2014 Ot 733.90 09/07/2014 Ot V15.3 09/07/2014 Ot V45.71 09/07/2014 Ot V58.69 09/07/2014 Ot V87.41 09/07/2014 Ot 079.4 09/07/2014 Ot 174.9 09/07/2014 Ot 196.3 09/07/2014 Ot 465.9 09/07/2014 Ot 733.90 09/07/2014 Ot V15.3 09/07/2014 Ot V45.71 09/07/2014 Ot V58.69 09/07/2014 Ot V87.41 09/07/2014 Ot V10.3 09/07/2014 Ot V45.71 09/07/2014 Ot V76.11 09/07/2014 Ot 174.9 09/07/2014 Ot 196.3 09/07/2014 Ot 305.1 09/07/2014 Ot 496 09/07/2014 Ot 733.90 09/07/2014 Ot V15.3 09/07/2014 Ot V45.71 09/07/2014 Ot V58.69 09/07/2014 Ot V87.41 09/07/2014 KAITLIN SANDHU Ot 174.9 09/07/2014 ABRAHAN AIKEN PHYSICAL INTEGRATION PRACTITIONER Ot 174.9 09/07/2014 ABRAHAN AIKEN PHYSICAL INTEGRATION PRACTITIONER Ot 196.3 09/07/2014 ABRAHAN AIKEN PHYSICAL INTEGRATION PRACTITIONER Ot 305.1 09/07/2014 ABRAHAN AIKEN PHYSICAL INTEGRATION PRACTITIONER Ot 496 09/07/2014 ABRAHAN AIKEN PHYSICAL INTEGRATION PRACTITIONER Ot 733.90 09/07/2014 ABRAHAN AIKEN S PHYSICAL INTEGRATION PRACTITIONER Ot V15.3 09/07/2014 ABRAHAN AIKEN S PHYSICAL INTEGRATION PRACTITIONER Ot V45.71 09/07/2014 ABRAHAN AIKEN S PHYSICAL INTEGRATION PRACTITIONER Ot V58.69 09/07/2014 ABRAHAN AIKEN S PHYSICAL INTEGRATION PRACTITIONER Ot V87.41 09/07/2014 ABRAHAN AIKEN S PHYSICAL INTEGRATION PRACTITIONER Ot 733.90 09/07/2014 ABRAHAN AIKEN S PHYSICAL INTEGRATION PRACTITIONER Ot V76.12 09/07/2014 ABRAHAN AIKEN S PHYSICAL INTEGRATION PRACTITIONER Ot 174.9 09/07/2014 BARAHAN AIKEN S PHYSICAL INTEGRATION PRACTITIONER Ot 174.9 09/07/2014 ABRAHAN AIKEN S PHYSICAL INTEGRATION PRACTITIONER Ot 723.1 09/07/2014 ABRAHAN AIKEN S PHYSICAL INTEGRATION PRACTITIONER Ot 780.4 09/07/2014 ABRAHAN AIKEN S PHYSICAL INTEGRATION PRACTITIONER Ot 784.0 09/07/2014 ABRAHAN AIKEN S PHYSICAL INTEGRATION PRACTITIONER Ot 174.9 09/07/2014 ABRAHAN AIKEN S PHYSICAL INTEGRATION PRACTITIONER Ot 723.1 09/07/2014 ABRAHAN AIKEN S PHYSICAL INTEGRATION PRACTITIONER Ot 780.4 09/07/2014 ABRAHAN AIKEN S PHYSICAL INTEGRATION PRACTITIONER Ot 784.0 09/07/2014 ABRAHAN AIKEN S PHYSICAL INTEGRATION PRACTITIONER Ot 723.1 09/08/2014 EDSON, BOBAN N Ot 174.9 09/09/2014 EDSON, BOBAN N Ot 174.9 09/09/2014 EDSON, BOBAN N Ot 174.9 09/09/2014 EDSON, BOBAN N Ot 174.9 09/10/2014 EDSON, BOBAN N Ot 174.9 10/13/2014 EDSON, BOBAN N Ot 174.9 11/05/2014 EDSON, BOBAN N Ot 174.9 11/29/2014 EDSON, BOBAN N Ot 174.9 12/08/2014 EDSON, BOBKATHERINE N Ot 174.9 MALIGN NEOPL BREAST NOS 12/20/2014 EDSONKAITLIN IVEY N Ot 174.9 12/20/2014 ALEXANDRIA DENNIS, ERON Blackman Ot 455.0 INT HEMORRHOID W/O COMPL 12/20/2014 ERON IBRAHIM MD Ot 455.3 EXT HEMORRHOID W/O COMPL 12/20/2014 ALEXANDRI[place] DENNIS, ERON Blackman Ot 562.10 DIVERTICULOSIS COLON (W/O MENT OF HEMORR 12/20/2014 ALEXANDRIA DENNIS, ERON Blackman Ot V76.51 SCREEN MAL NEOP-COLON 12/22/2014 KAITLIN SANHDU N Ot 174.9 12/22/2014 KAITLIN SANDHU N Ot 496 12/22/2014 EDSONKAITLIN N Ot 793.11 12/28/2014 ALEX[place]RI[place] DENNIS, ERON Blackman Ot 578.1 12/28/2014 A[place]RI[place] DENNIS, ERON Blackman Ot V72.84 12/28/2014 ALEXANDRI[place] DENNIS, ERON Blackman Ot V76.51 12/28/2014 ALEX[place]RI[place] DENNIS, ERON Blackman Ot 578.1 12/28/2014 ALEX[place]RI[place] DENNIS, ERON Blackman Ot V72.84 12/28/2014 ALEXANDRIA DENNIS, ERON Blackman Ot V76.51 06/27/2015 Ot 174.9 06/27/2015 Ot 521.00 06/27/2015 Ot 733.90 06/27/2015 Ot V15.3 06/27/2015 Ot V45.71 06/27/2015 Ot V58.69 06/27/2015 Ot V87.41 06/27/2015 Ot 174.9 06/27/2015 Ot 280.9 06/27/2015 Ot 305.1 06/27/2015 Ot 724.00 06/27/2015 Ot 733.90 06/27/2015 Ot 785.6 06/27/2015 Ot V45.71 06/27/2015 Ot 174.9 06/27/2015 Ot 174.9 06/27/2015 Ot 285.9 06/27/2015 Ot 733.90 06/27/2015 Ot 786.50 06/27/2015 Ot V15.3 06/27/2015 Ot V45.71 06/27/2015 Ot V58.69 06/27/2015 Ot V87.41 06/27/2015 Ot 401.9 06/27/2015 Ot 786.50 06/27/2015 Ot V58.69 06/27/2015 Ot 174.9 06/27/2015 Ot 719.40 06/27/2015 Ot 733.90 06/27/2015 Ot 780.79 06/27/2015 Ot V15.3 06/27/2015 Ot V45.71 06/27/2015 Ot V58.69 06/27/2015 Ot V87.41 06/27/2015 Ot 733.90 06/27/2015 Ot V10.3 06/27/2015 Ot V76.11 06/27/2015 Ot 079.4 06/27/2015 Ot 174.9 06/27/2015 Ot 196.3 06/27/2015 Ot 733.90 06/27/2015 Ot V15.3 06/27/2015 Ot V45.71 06/27/2015 Ot V58.69 06/27/2015 Ot V87.41 06/27/2015 Ot 079.4 06/27/2015 Ot 174.9 06/27/2015 Ot 196.3 06/27/2015 Ot 465.9 06/27/2015 Ot 733.90 06/27/2015 Ot V15.3 06/27/2015 Ot V45.71 06/27/2015 Ot V58.69 06/27/2015 Ot V87.41 06/27/2015 Ot V10.3 06/27/2015 Ot V45.71 06/27/2015 Ot V76.11 06/27/2015 Ot 174.9 06/27/2015 Ot 196.3 06/27/2015 Ot 305.1 06/27/2015 Ot 496 06/27/2015 Ot 733.90 06/27/2015 Ot V15.3 06/27/2015 Ot V45.71 06/27/2015 Ot V58.69 06/27/2015 Ot V87.41 06/27/2015 ABRAHAN AIKNEP Ot 174.9 06/27/2015 ABRAHAN AIKEN PHYSICAL INTEGRATION PRACTITIONER Ot 196.3 06/27/2015 ABRAHAN AIKEN PHYSICAL INTEGRATION PRACTITIONER Ot 305.1 06/27/2015 ABRAHAN AIKEN PHYSICAL INTEGRATION PRACTITIONER Ot 496 06/27/2015 ABRAHAN AIKEN PHYSICAL INTEGRATION PRACTITIONER Ot 733.90 06/27/2015 ABRAHAN AIKEN PHYSICAL INTEGRATION PRACTITIONER Ot V15.3 06/27/2015 ABRAHAN AIKENP Ot V45.71 06/27/2015 ABRAHAN AIKEN PHYSICAL INTEGRATION PRACTITIONER Ot V58.69 06/27/2015 ABRAHAN AIKEN PHYSICAL INTEGRATION PRACTITIONER Ot V87.41 06/27/2015 ABRAHAN AIKEN PHYSICAL INTEGRATION PRACTITIONER Ot 733.90 06/27/2015 ABRAHAN AIKEN PHYSICAL INTEGRATION PRACTITIONER Ot V76.12 06/27/2015 ABRAHAN AIKEN PHYSICAL INTEGRATION PRACTITIONER Ot 174.9 06/27/2015 ABRAHAN AIKEN PHYSICAL INTEGRATION PRACTITIONER Ot 174.9 06/27/2015 ABRAHAN AIKEN PHYSICAL INTEGRATION PRACTITIONER Ot 723.1 06/27/2015 ABRAHAN AIKEN S PHYSICAL INTEGRATION PRACTITIONER Ot 780.4 06/27/2015 ABRAHAN AIKEN S PHYSICAL INTEGRATION PRACTITIONER Ot 784.0 06/27/2015 ABRAHAN AIKEN S PHYSICAL INTEGRATION PRACTITIONER Ot 174.9 06/27/2015 ABRAHAN AIKEN PHYSICAL INTEGRATION PRACTITIONER Ot 723.1 06/27/2015 ABRAHAN AIKEN PHYSICAL INTEGRATION PRACTITIONER Ot 780.4 06/27/2015 ABRAHAN AIKEN PHYSICAL INTEGRATION PRACTITIONER Ot 784.0 06/27/2015 ABRAHAN AIKEN PHYSICAL INTEGRATION PRACTITIONER Ot 723.1 06/27/2015 KAITLIN SANDHU N Ot 174.9 06/27/2015 EDSON, MEEKAN N Ot 174.9 06/27/2015 EDSON, BOBAN N Ot 496 06/27/2015 EDSON, MEEKAN N Ot 793.11 06/27/2015 EDSON, MEEKAN N Ot 174.9 06/27/2015 ALEX[place]RI[place] DENNIS, ERON Blackman Ot 578.1 06/27/2015 ALEX[place] DENNIS, ERON Blackman Ot V72.84 06/27/2015 ALEX[place] DENNIS, ERON Blackman Ot V76.51 07/01/2015 Ot 174.9 07/01/2015 Ot 521.00 07/01/2015 Ot 733.90 07/01/2015 Ot V15.3 07/01/2015 Ot V45.71 07/01/2015 Ot V58.69 07/01/2015 Ot V87.41 07/01/2015 Ot 174.9 07/01/2015 Ot 280.9 07/01/2015 Ot 305.1 07/01/2015 Ot 724.00 07/01/2015 Ot 733.90 07/01/2015 Ot 785.6 07/01/2015 Ot V45.71 07/01/2015 Ot 174.9 07/01/2015 Ot 174.9 07/01/2015 Ot 285.9 07/01/2015 Ot 733.90 07/01/2015 Ot 786.50 07/01/2015 Ot V15.3 07/01/2015 Ot V45.71 07/01/2015 Ot V58.69 07/01/2015 Ot V87.41 07/01/2015 Ot 401.9 07/01/2015 Ot 786.50 07/01/2015 Ot V58.69 07/01/2015 Ot 174.9 07/01/2015 Ot 719.40 07/01/2015 Ot 733.90 07/01/2015 Ot 780.79 07/01/2015 Ot V15.3 07/01/2015 Ot V45.71 07/01/2015 Ot V58.69 07/01/2015 Ot V87.41 07/01/2015 Ot 733.90 07/01/2015 Ot V10.3 07/01/2015 Ot V76.11 07/01/2015 Ot 079.4 07/01/2015 Ot 174.9 07/01/2015 Ot 196.3 07/01/2015 Ot 733.90 07/01/2015 Ot V15.3 07/01/2015 Ot V45.71 07/01/2015 Ot V58.69 07/01/2015 Ot V87.41 07/01/2015 Ot 079.4 07/01/2015 Ot 174.9 07/01/2015 Ot 196.3 07/01/2015 Ot 465.9 07/01/2015 Ot 733.90 07/01/2015 Ot V15.3 07/01/2015 Ot V45.71 07/01/2015 Ot V58.69 07/01/2015 Ot V87.41 07/01/2015 Ot V10.3 07/01/2015 Ot V45.71 07/01/2015 Ot V76.11 07/01/2015 Ot 174.9 07/01/2015 Ot 196.3 07/01/2015 Ot 305.1 07/01/2015 Ot 496 07/01/2015 Ot 733.90 07/01/2015 Ot V15.3 07/01/2015 Ot V45.71 07/01/2015 Ot V58.69 07/01/2015 Ot V87.41 07/01/2015 ABRAHAN AIKEN Ot 174.9 07/01/2015 ABRAHAN AIKEN Ot 196.3 07/01/2015 ABRAHAN AIKEN S PHYSICAL INTEGRATION PRACTITIONER Ot 305.1 07/01/2015 ABRAHAN AIKEN S PHYSICAL INTEGRATION PRACTITIONER Ot 496 07/01/2015 ABRAHAN AIKEN S PHYSICAL INTEGRATION PRACTITIONER Ot 733.90 07/01/2015 ABRAHAN AKIEN S PHYSICAL INTEGRATION PRACTITIONER Ot V15.3 07/01/2015 ABRAHAN AIKEN S PHYSICAL INTEGRATION PRACTITIONER Ot V45.71 07/01/2015 AIKENABRAHAN S PHYSICAL INTEGRATION PRACTITIONER Ot V58.69 07/01/2015 ABRAHAN AIKEN S PHYSICAL INTEGRATION PRACTITIONER Ot V87.41 07/01/2015 ABRAHAN AIKEN S PHYSICAL INTEGRATION PRACTITIONER Ot 733.90 07/01/2015 AIKENABRAHAN S PHYSICAL INTEGRATION PRACTITIONER Ot V76.12 07/01/2015 ABRAHAN AIKEN S PHYSICAL INTEGRATION PRACTITIONER Ot 174.9 07/01/2015 AIKENABRAHAN S PHYSICAL INTEGRATION PRACTITIONER Ot 174.9 07/01/2015 ABRAHAN AIKEN S PHYSICAL INTEGRATION PRACTITIONER Ot 723.1 07/01/2015 ABRAHAN AIKEN S PHYSICAL INTEGRATION PRACTITIONER Ot 780.4 07/01/2015 ABRAHAN AIKEN S PHYSICAL INTEGRATION PRACTITIONER Ot 784.0 07/01/2015 AIKENABRAHAN Pete S PHYSICAL INTEGRATION PRACTITIONER Ot 174.9 07/01/2015 ABRAHAN AIKEN S PHYSICAL INTEGRATION PRACTITIONER Ot 723.1 07/01/2015 ABRAHAN AIKEN S PHYSICAL INTEGRATION PRACTITIONER Ot 780.4 07/01/2015 ABRAHAN AIKEN S PHYSICAL INTEGRATION PRACTITIONER Ot 784.0 07/01/2015 ABRAHAN AIKEN S PHYSICAL INTEGRATION PRACTITIONER Ot 723.1 07/01/2015 EDSON, BOBAN N Ot 174.9 07/01/2015 EDSON, BOBAN N Ot 174.9 07/01/2015 EDSON, BOBAN N Ot 496 07/01/2015 EDSON, BOBAN N Ot 793.11 07/01/2015 EDSON, BOBAN N Ot 174.9 07/01/2015 ALEX[place]RI[place] DENNIS, ERON Blackman Ot 578.1 07/01/2015 A[place] DENNIS, ERON Blackman Ot V72.84 07/01/2015 A[place] DENNIS, ERON Blackman Ot V76.51 07/01/2015 AIKENABRAHAN S PHYSICAL INTEGRATION PRACTITIONER Ot C50.919 08/01/2015 AIKENABRAHAN S PHYSICAL INTEGRATION PRACTITIONER Ot C50.919 08/01/2015 AIKEN ABRAHAN Pete PHYSICAL INTEGRATION PRACTITIONER Ot C50.411 08/01/2015 AIKEN, ABRAHAN Pete [facility] Ot R91.1 08/01/2015 AIKEN ABRAHAN Pete [facility] Ot Z12.31 10/10/2015 Ot 174.9 10/10/2015 Ot 521.00 10/10/2015 Ot 733.90 10/10/2015 Ot V15.3 10/10/2015 Ot V45.71 10/10/2015 Ot V58.69 10/10/2015 Ot V87.41 10/10/2015 Ot 174.9 MALIGN NEOPL BREAST NOS 10/10/2015 Ot 285.9 ANEMIA NOS 10/10/2015 Ot 733.90 BONE CARTILAGE DIS NOS 10/10/2015 Ot 786.50 CHEST PAIN NOS 10/10/2015 Ot V15.3 HX OF IRRADIATION 10/10/2015 Ot V45.71 ACQUIRED ABSENCE OF BREAST AND NIPPLE 10/10/2015 Ot V58.69 OTH MED,LT, CURRENT USE 10/10/2015 Ot V87.41 PERSONAL HISTORY OF ANTINEOPLASTIC CHEMO 10/10/2015 Ot 401.9 HYPERTENSION NOS 10/10/2015 Ot 786.50 CHEST PAIN NOS 10/10/2015 Ot V58.69 OTH MED,LT, CURRENT USE 10/10/2015 Ot 174.9 MALIGN NEOPL BREAST NOS 10/10/2015 Ot 719.40 JOINT PAIN- UNSPEC 10/10/2015 Ot 733.90 BONE CARTILAGE DIS NOS 10/10/2015 Ot 780.79 OTH MALAISE FATIGUE 10/10/2015 Ot V15.3 HX OF IRRADIATION 10/10/2015 Ot V45.71 ACQUIRED ABSENCE OF BREAST AND NIPPLE 10/10/2015 Ot V58.69 OTH MED,LT, CURRENT USE 10/10/2015 Ot V87.41 PERSONAL HISTORY OF ANTINEOPLASTIC CHEMO 10/10/2015 Ot 733.90 BONE CARTILAGE DIS NOS 10/10/2015 Ot V10.3 HX OF BREAST MALIGNANCY 10/10/2015 Ot V76.11 SCRN MAMMO- HIGH RISK PT, MALIGNANT NEOPL 10/10/2015 Ot 079.4 HUMAN PAPILLOMA VIRUS 10/10/2015 Ot 174.9 MALIGN NEOPL BREAST NOS 10/10/2015 Ot 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 10/10/2015 Ot 733.90 BONE CARTILAGE DIS NOS 10/10/2015 Ot V15.3 HX OF IRRADIATION 10/10/2015 Ot V45.71 ACQUIRED ABSENCE OF BREAST AND NIPPLE 10/10/2015 Ot V58.69 OTH MED,LT, CURRENT USE 10/10/2015 Ot V87.41 PERSONAL HISTORY OF ANTINEOPLASTIC CHEMO 10/10/2015 Ot 079.4 HUMAN PAPILLOMA VIRUS 10/10/2015 Ot 174.9 MALIGN NEOPL BREAST NOS 10/10/2015 Ot 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 10/10/2015 Ot 465.9 ACUTE URI NOS 10/10/2015 Ot 733.90 BONE CARTILAGE DIS NOS 10/10/2015 Ot V15.3 HX OF IRRADIATION 10/10/2015 Ot V45.71 ACQUIRED ABSENCE OF BREAST AND NIPPLE 10/10/2015 Ot V58.69 OTH MED,LT, CURRENT USE 10/10/2015 Ot V87.41 PERSONAL HISTORY OF ANTINEOPLASTIC CHEMO 10/10/2015 Ot V10.3 HX OF BREAST MALIGNANCY 10/10/2015 Ot V45.71 ACQUIRED ABSENCE OF BREAST AND NIPPLE 10/10/2015 Ot V76.11 SCRN MAMMO- HIGH RISK PT, MALIGNANT NEOPL 10/10/2015 Ot 174.9 MALIGN NEOPL BREAST NOS 10/10/2015 Ot 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 10/10/2015 Ot 305.1 TOBACCO USE DISORDER 10/10/2015 Ot 496 CHR AIRWAY OBSTRUCT NEC 10/10/2015 Ot 733.90 BONE CARTILAGE DIS NOS 10/10/2015 Ot V15.3 HX OF IRRADIATION 10/10/2015 Ot V45.71 ACQUIRED ABSENCE OF BREAST AND NIPPLE 10/10/2015 Ot V58.69 OTH MED,LT, CURRENT USE 10/10/2015 Ot V87.41 PERSONAL HISTORY OF ANTINEOPLASTIC CHEMO 10/10/2015 ABRAHAN AIKEN PHYSICAL INTEGRATION PRACTITIONER Ot 174.9 MALIGN NEOPL BREAST NOS 10/10/2015 ABRAHAN AIKEN PHYSICAL INTEGRATION PRACTITIONER Ot 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 10/10/2015 ABRAHAN AIKEN PHYSICAL INTEGRATION PRACTITIONER Ot 305.1 TOBACCO USE DISORDER 10/10/2015 ABRAHAN AIKEN PHYSICAL INTEGRATION PRACTITIONER Ot 496 CHR AIRWAY OBSTRUCT NEC 10/10/2015 ABRAHAN AIKEN PHYSICAL INTEGRATION PRACTITIONER Ot 733.90 BONE CARTILAGE DIS NOS 10/10/2015 AIKEN ABRAHAN Pete PHYSICAL INTEGRATION PRACTITIONER Ot V15.3 HX OF IRRADIATION 10/10/2015 AIKEN ABRAHAN Pete PHYSICAL INTEGRATION PRACTITIONER Ot V45.71 ACQUIRED ABSENCE OF BREAST AND NIPPLE 10/10/2015 ABRAHAN AIKEN PHYSICAL INTEGRATION PRACTITIONER Ot V58.69 OTH MED,LT,CURRENT USE 10/10/2015 AIKEN ABRAHAN Pete PHYSICAL INTEGRATION PRACTITIONER Ot V87.41 PERSONAL HISTORY OF ANTINEOPLASTIC CHEMO 10/10/2015 NELLI ABRAHAN Pete PHYSICAL INTEGRATION PRACTITIONER Ot 733.90 BONE CARTILAGE DIS NOS 10/10/2015 ABRAHAN AIKEN PHYSICAL INTEGRATION PRACTITIONER Ot V76.12 OTH SCREEN MAMMO-MALIGN NEOPLASM OF MESERET 10/10/2015 NELLI ABRAHAN Pete PHYSICAL INTEGRATION PRACTITIONER Ot 174.9 MALIGN NEOPL BREAST NOS 10/10/2015 NELLI ABRAHAN Pete PHYSICAL INTEGRATION PRACTITIONER Ot 174.9 MALIGN NEOPL BREAST NOS 10/10/2015 NELLI ABRAHAN Pete PHYSICAL INTEGRATION PRACTITIONER Ot 723.1 CERVICALGIA 10/10/2015 NELLI ABRAHAN Pete PHYSICAL INTEGRATION PRACTITIONER Ot 780.4 DIZZINESS AND GIDDINESS 10/10/2015 AIKEN ABRAHAN Pete PHYSICAL INTEGRATION PRACTITIONER Ot 784.0 HEADACHE 10/10/2015 NELLI ABRAHAN Pete PHYSICAL INTEGRATION PRACTITIONER Ot 174.9 MALIGN NEOPL BREAST NOS 10/10/2015 NELLI ABRAHAN Pete PHYSICAL INTEGRATION PRACTITIONER Ot 723.1 CERVICALGIA 10/10/2015 NELLI ABRAHAN Pete PHYSICAL INTEGRATION PRACTITIONER Ot 780.4 DIZZINESS AND GIDDINESS 10/10/2015 NELLI ABRAHAN Pete PHYSICAL INTEGRATION PRACTITIONER Ot 784.0 HEADACHE 10/10/2015 NELLI ABRAHAN Pete PHYSICAL INTEGRATION PRACTITIONER Ot 723.1 CERVICALGIA 10/10/2015 KAITLIN SANDHU N Ot 174.9 MALIGN NEOPL BREAST NOS 10/10/2015 KAITLIN SANDHU N Ot 174.9 MALIGN NEOPL BREAST NOS 10/10/2015 KAITLIN SANDHU Ot 496 CHR AIRWAY OBSTRUCT NEC 10/10/2015 KAITLIN SANDHU Ot 793.11 SOLITARY PULMONARY NODULE 10/10/2015 KAITLIN SANDHU N Ot 174.9 MALIGN NEOPL BREAST NOS 10/10/2015 A[place] DENNIS, ERON Blackman Ot 578.1 BLOOD IN STOOL 10/10/2015 A[place] DENNIS, ERON M Ot V72.84 EXAM PRE-OPERATIVE NOS 10/10/2015 [place] DENNIS, ERON M Ot V76.51 SCREEN MAL NEOP-COLON 10/10/2015 AIKEN ABRAHAN Pete PHYSICAL INTEGRATION PRACTITIONER Ot 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 10/10/2015 ABRAHAN AIKEN PHYSICAL INTEGRATION PRACTITIONER Ot C50.411 MALIG NEOPLM OF UPPER-OUTER QUADRANT OF 10/10/2015 NELLI ABRAHAN Pete PHYSICAL INTEGRATION PRACTITIONER Ot R91.1 SOLITARY PULMONARY NODULE 10/10/2015 NELLI ABRAHAN Pete PHYSICAL INTEGRATION PRACTITIONER Ot Z12.31 ENCNTR SCREEN MAMMOGRAM FOR MALIGNANT NE 10/10/2015 Ot 174.9 10/10/2015 Ot 521.00 10/10/2015 Ot 733.90 10/10/2015 Ot V15.3 10/10/2015 Ot V45.71 10/10/2015 Ot V58.69 10/10/2015 Ot V87.41 10/10/2015 Ot 174.9 MALIGN NEOPL BREAST NOS 10/10/2015 Ot 285.9 ANEMIA NOS 10/10/2015 Ot 733.90 BONE CARTILAGE DIS NOS 10/10/2015 Ot 786.50 CHEST PAIN NOS 10/10/2015 Ot V15.3 HX OF IRRADIATION 10/10/2015 Ot V45.71 ACQUIRED ABSENCE OF BREAST AND NIPPLE 10/10/2015 Ot V58.69 OTH MED,LT, CURRENT USE 10/10/2015 Ot V87.41 PERSONAL HISTORY OF ANTINEOPLASTIC CHEMO 10/10/2015 Ot 401.9 HYPERTENSION NOS 10/10/2015 Ot 786.50 CHEST PAIN NOS 10/10/2015 Ot V58.69 OTH MED,LT, CURRENT USE 10/10/2015 Ot 174.9 MALIGN NEOPL BREAST NOS 10/10/2015 Ot 719.40 JOINT PAIN- UNSPEC 10/10/2015 Ot 733.90 BONE CARTILAGE DIS NOS 10/10/2015 Ot 780.79 OTH MALAISE FATIGUE 10/10/2015 Ot V15.3 HX OF IRRADIATION 10/10/2015 Ot V45.71 ACQUIRED ABSENCE OF BREAST AND NIPPLE 10/10/2015 Ot V58.69 OTH MED,LT, CURRENT USE 10/10/2015 Ot V87.41 PERSONAL HISTORY OF ANTINEOPLASTIC CHEMO 10/10/2015 Ot 733.90 BONE CARTILAGE DIS NOS 10/10/2015 Ot V10.3 HX OF BREAST MALIGNANCY 10/10/2015 Ot V76.11 SCRN MAMMO- HIGH RISK PT, MALIGNANT NEOPL 10/10/2015 Ot 079.4 HUMAN PAPILLOMA VIRUS 10/10/2015 Ot 174.9 MALIGN NEOPL BREAST NOS 10/10/2015 Ot 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 10/10/2015 Ot 733.90 BONE CARTILAGE DIS NOS 10/10/2015 Ot V15.3 HX OF IRRADIATION 10/10/2015 Ot V45.71 ACQUIRED ABSENCE OF BREAST AND NIPPLE 10/10/2015 Ot V58.69 OTH MED,LT, CURRENT USE 10/10/2015 Ot V87.41 PERSONAL HISTORY OF ANTINEOPLASTIC CHEMO 10/10/2015 Ot 079.4 HUMAN PAPILLOMA VIRUS 10/10/2015 Ot 174.9 MALIGN NEOPL BREAST NOS 10/10/2015 Ot 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 10/10/2015 Ot 465.9 ACUTE URI NOS 10/10/2015 Ot 733.90 BONE CARTILAGE DIS NOS 10/10/2015 Ot V15.3 HX OF IRRADIATION 10/10/2015 Ot V45.71 ACQUIRED ABSENCE OF BREAST AND NIPPLE 10/10/2015 Ot V58.69 OTH MED,LT, CURRENT USE 10/10/2015 Ot V87.41 PERSONAL HISTORY OF ANTINEOPLASTIC CHEMO 10/10/2015 Ot V10.3 HX OF BREAST MALIGNANCY 10/10/2015 Ot V45.71 ACQUIRED ABSENCE OF BREAST AND NIPPLE 10/10/2015 Ot V76.11 SCRN MAMMO- HIGH RISK PT, MALIGNANT NEOPL 10/10/2015 Ot 174.9 MALIGN NEOPL BREAST NOS 10/10/2015 Ot 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 10/10/2015 Ot 305.1 TOBACCO USE DISORDER 10/10/2015 Ot 496 CHR AIRWAY OBSTRUCT NEC 10/10/2015 Ot 733.90 BONE CARTILAGE DIS NOS 10/10/2015 Ot V15.3 HX OF IRRADIATION 10/10/2015 Ot V45.71 ACQUIRED ABSENCE OF BREAST AND NIPPLE 10/10/2015 Ot V58.69 OTH MED,LT, CURRENT USE 10/10/2015 Ot V87.41 PERSONAL HISTORY OF ANTINEOPLASTIC CHEMO 10/10/2015 ABRAHAN AIKEN PHYSICAL INTEGRATION PRACTITIONER Ot 174.9 MALIGN NEOPL BREAST NOS 10/10/2015 ABRAHAN AIKEN PHYSICAL INTEGRATION PRACTITIONER Ot 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 10/10/2015 ABRAHAN AIKEN PHYSICAL INTEGRATION PRACTITIONER Ot 305.1 TOBACCO USE DISORDER 10/10/2015 ABRAHAN AIKEN PHYSICAL INTEGRATION PRACTITIONER Ot 496 CHR AIRWAY OBSTRUCT NEC 10/10/2015 ABRAHAN AIKEN PHYSICAL INTEGRATION PRACTITIONER Ot 733.90 BONE CARTILAGE DIS NOS 10/10/2015 ABRAHAN AIKEN PHYSICAL INTEGRATION PRACTITIONER Ot V15.3 HX OF IRRADIATION 10/10/2015 ABRAHAN AIKEN PHYSICAL INTEGRATION PRACTITIONER Ot V45.71 ACQUIRED ABSENCE OF BREAST AND NIPPLE 10/10/2015 ABRAHAN AIKEN PHYSICAL INTEGRATION PRACTITIONER Ot V58.69 OTH MED,LT,CURRENT USE 10/10/2015 ABRAHAN AIKEN PHYSICAL INTEGRATION PRACTITIONER Ot V87.41 PERSONAL HISTORY OF ANTINEOPLASTIC CHEMO 10/10/2015 ABRAHAN AIKEN PHYSICAL INTEGRATION PRACTITIONER Ot 733.90 BONE CARTILAGE DIS NOS 10/10/2015 ABRAHAN AIKEN PHYSICAL INTEGRATION PRACTITIONER Ot V76.12 OTH SCREEN MAMMO-MALIGN NEOPLASM OF MESERET 10/10/2015 ABRAHAN AIKEN PHYSICAL INTEGRATION PRACTITIONER Ot 174.9 MALIGN NEOPL BREAST NOS 10/10/2015 ABRAHAN AIKEN S PHYSICAL INTEGRATION PRACTITIONER Ot 174.9 MALIGN NEOPL BREAST NOS 10/10/2015 ABRAHAN AIKEN PHYSICAL INTEGRATION PRACTITIONER Ot 723.1 CERVICALGIA 10/10/2015 ABRAHAN AIKEN PHYSICAL INTEGRATION PRACTITIONER Ot 780.4 DIZZINESS AND GIDDINESS 10/10/2015 ABRAHAN AIKEN PHYSICAL INTEGRATION PRACTITIONER Ot 784.0 HEADACHE 10/10/2015 ABRAHAN AIKEN PHYSICAL INTEGRATION PRACTITIONER Ot 174.9 MALIGN NEOPL BREAST NOS 10/10/2015 ABRAHAN AIKEN S PHYSICAL INTEGRATION PRACTITIONER Ot 723.1 CERVICALGIA 10/10/2015 ABRAHAN AIKEN PHYSICAL INTEGRATION PRACTITIONER Ot 780.4 DIZZINESS AND GIDDINESS 10/10/2015 ABRAHAN AIKEN S PHYSICAL INTEGRATION PRACTITIONER Ot 784.0 HEADACHE 10/10/2015 ABRAHAN AIKEN S PHYSICAL INTEGRATION PRACTITIONER Ot 723.1 CERVICALGIA 10/10/2015 KAITLIN SANDHU Ot 174.9 MALIGN NEOPL BREAST NOS 10/10/2015 KAITLIN SANDHU Ot 174.9 MALIGN NEOPL BREAST NOS 10/10/2015 EDSON, BOBAN N Ot 496 CHR AIRWAY OBSTRUCT NEC 10/10/2015 KAITLIN SANDHU Ot 793.11 SOLITARY PULMONARY NODULE 10/10/2015 KAITLIN SANDHU Ot 174.9 MALIGN NEOPL BREAST NOS 10/10/2015 ALEXANDRIA DENNIS, ERON Blackman Ot 578.1 BLOOD IN STOOL 10/10/2015 ALEX[place]RI[place] DENNIS, ERON Blackman Ot V72.84 EXAM PRE-OPERATIVE NOS 10/10/2015 ALEX[place]RI[place] DENNIS, ERON Blackman Ot V76.51 SCREEN MAL NEOP-COLON 10/10/2015 ABRAHAN AIKEN PHYSICAL INTEGRATION PRACTITIONER Ot 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 10/10/2015 ABRAHAN AIKEN PHYSICAL INTEGRATION PRACTITIONER Ot C50.411 MALIG NEOPLM OF UPPER-OUTER QUADRANT OF 10/10/2015 ABRAHAN AIKEN PHYSICAL INTEGRATION PRACTITIONER Ot R91.1 SOLITARY PULMONARY NODULE 10/10/2015 ABRAHAN AIKEN PHYSICAL INTEGRATION PRACTITIONER Ot Z12.31 ENCNTR SCREEN MAMMOGRAM FOR MALIGNANT NE 10/11/2015 BINTA MORALES DO Ot C50.411 MALIG NEOPLM OF UPPER-OUTER QUADRANT OF 10/11/2015 BINTA MORALES DO Ot J44.9 CHRONIC OBSTRUCTIVE PULMONARY DISEASE, U 10/11/2015 BINTA MORALES DO Ot R91.1 SOLITARY PULMONARY NODULE 10/11/2015 BINTA MORALES DO Ot R94.2 ABNORMAL RESULTS OF PULMONARY FUNCTION S 10/11/2015 BINTA MORALES DO Ot Z72.0 TOBACCO USE 11/02/2015 BINTA MORALES DO Ot C50.411 MALIG NEOPLM OF UPPER-OUTER QUADRANT OF 11/02/2015 BINTA MORALES DO Ot J44.9 CHRONIC OBSTRUCTIVE PULMONARY DISEASE, U 11/02/2015 BINTA MORALES DO Ot R91.1 SOLITARY PULMONARY NODULE 11/02/2015 BINTA MORALES DO Ot R94.2 ABNORMAL RESULTS OF PULMONARY FUNCTION S 11/02/2015 BINTA MORALES DO Ot Z72.0 TOBACCO USE 12/15/2015 ALEX[place]RIA DENNIS, ERON Blackman Ot R13.10 DYSPHAGIA, UNSPECIFIED 12/15/2015 ALEXANDRIA DENNIS, ERON Blackman Ot Z01.818 ENCOUNTER FOR OTHER PREPROCEDURAL EXAMIN 12/15/2015 EDSON, BOBAN N Ot 174.9 MALIGN NEOPL BREAST NOS 12/15/2015 ALEXANDRIA DENNIS, ERON M Ot R13.10 DYSPHAGIA, UNSPECIFIED 12/15/2015 ALEX[place]RI[place] DENNIS, ERON M Ot Z01.818 ENCOUNTER FOR OTHER PREPROCEDURAL EXAMIN 12/15/2015 ALEXANDRIA DENNIS, ERON M Ot K20.9 ESOPHAGITIS, UNSPECIFIED 12/15/2015 ALEX[place]RI[place] DENNIS, ERON M Ot K22.2 ESOPHAGEAL OBSTRUCTION 12/15/2015 ALEX[place]RIA DENNIS, ERON M Ot K25.7 CHRONIC GASTRIC ULCER WITHOUT HEMORRHAGE 12/15/2015 ALEX[place]RI[place] DENNIS, ERON M Ot K26.7 CHRONIC DUODENAL ULCER WITHOUT HEMORRHAG 12/16/2015 ALEX[place]RI[place] DENNIS, ERON M Ot K20.9 ESOPHAGITIS, UNSPECIFIED 12/16/2015 ALEX[place]RI[place] DENNIS, ERON M Ot K22.2 ESOPHAGEAL OBSTRUCTION 12/16/2015 A[place]RI[place] DENNIS, ERON M Ot K25.7 CHRONIC GASTRIC ULCER WITHOUT HEMORRHAGE 12/16/2015 ALEX[place]RI[place] DENNIS, ERON M Ot K26.7 CHRONIC DUODENAL ULCER WITHOUT HEMORRHAG 12/16/2015 ALEX[place]RIA DENNIS, ERON M Ot K20.9 ESOPHAGITIS, UNSPECIFIED 12/16/2015 A[place]RI[place] DENNIS, ERON M Ot K22.2 ESOPHAGEAL OBSTRUCTION 12/16/2015 ALEX[place]RI[place] DENNIS, ERON M Ot K25.7 CHRONIC GASTRIC ULCER WITHOUT HEMORRHAGE 12/16/2015 ALEX[place]RI[place] DENNIS, ERON M Ot K26.7 CHRONIC DUODENAL ULCER WITHOUT HEMORRHAG 12/27/2015 EDSONKAITLIN N Ot 174.9 12/27/2015 EDSONKAITLIN Ot E03.9 HYPOTHYROIDISM, UNSPECIFIED 01/04/2016 ROB DENNIS FACC, ALI FACP CCDS Ot I10 ESSENTIAL (PRIMARY) HYPERTENSION 01/04/2016 ROB DENNIS FACC, ALI FACP CCDS Ot R07.89 OTHER CHEST PAIN 01/04/2016 ROB DENNIS FACC, ALI FACP CCDS Ot E11.9 TYPE 2 DIABETES MELLITUS WITHOUT COMPLIC 01/04/2016 ROB DENNIS FACC, ALI FACP CCDS Ot I10 ESSENTIAL (PRIMARY) HYPERTENSION 01/04/2016 ROB DENNIS FACC, ALI FACP CCDS Ot J43.8 OTHER EMPHYSEMA 01/04/2016 ROB ARORAC, ALI FACP CCDS Ot R07.89 OTHER CHEST PAIN 01/04/2016 ROB DENNIS FACC, ALI FACP CCDS Ot Z72.0 TOBACCO USE 01/09/2016 ROB DENNIS FACC, ALI FACP CCDS Ot E11.9 TYPE 2 DIABETES MELLITUS WITHOUT COMPLIC 01/09/2016 ROB DENNIS FACC, ALI FACP CCDS Ot I10 ESSENTIAL (PRIMARY) HYPERTENSION 01/09/2016 ROB DENNIS FACC, ALI FACP CCDS Ot J43.8 OTHER EMPHYSEMA 01/09/2016 ROB DENNIS FACC, ALI FACP CCDS Ot R07.89 OTHER CHEST PAIN 01/09/2016 ROB DENNIS FAC, ALI FACP CCDS Ot Z72.0 TOBACCO USE 02/07/2016 ROB DENNIS FACC, ALI FACP CCDS Ot E11.9 TYPE 2 DIABETES MELLITUS WITHOUT COMPLIC 02/07/2016 ROB DENNIS FAC, ALI FACP CCDS Ot I10 ESSENTIAL (PRIMARY) HYPERTENSION 02/07/2016 ROB DENNIS FACC, ALI FACP CCDS Ot J43.8 OTHER EMPHYSEMA 02/07/2016 ROB DENNIS [facility], ALI FACP CCDS Ot R07.89 OTHER CHEST PAIN 02/07/2016 ROB DENNIS [facility], ALI FACP CCDS Ot Z72.0 TOBACCO USE 02/10/2016 KAITLIN SANDHU Ot C50.411 MALIG NEOPLM OF UPPER-OUTER QUADRANT OF 02/10/2016 KAITLIN SANDHU Ot E03.9 HYPOTHYROIDISM, UNSPECIFIED 02/10/2016 KAITLIN SANDHU Ot R91.1 SOLITARY PULMONARY NODULE 02/21/2016 ROB DENNIS [facility], ALI FACP CCDS Ot E11.9 TYPE 2 DIABETES MELLITUS WITHOUT COMPLIC 02/21/2016 ROB DENNIS [facility], ALI FACP CCDS Ot I10 ESSENTIAL (PRIMARY) HYPERTENSION 02/21/2016 ROB DENNIS [facility], ALI FACP CCDS Ot J43.8 OTHER EMPHYSEMA 02/21/2016 ROB DENNIS [facility], ALI FACP CCDS Ot R07.89 OTHER CHEST PAIN 02/21/2016 ROB DENNIS FAC, ALI FACP CCDS Ot Z72.0 TOBACCO USE 03/25/2016 KAITLIN SANDHU Ot C50.411 MALIG NEOPLM OF UPPER-OUTER QUADRANT OF 03/25/2016 KAITLIN SANDHU Ot E03.9 HYPOTHYROIDISM, UNSPECIFIED 03/25/2016 KAITLIN SANDHU Ot R91.1 SOLITARY PULMONARY NODULE 03/31/2016 KAITLIN SANDHU Ot C50.411 MALIG NEOPLM OF UPPER-OUTER QUADRANT OF 03/31/2016 KAITLIN SANDHU Ot E03.9 HYPOTHYROIDISM, UNSPECIFIED 03/31/2016 KAITLIN SANDHU Ot R91.1 SOLITARY PULMONARY NODULE 04/05/2016 Ot 174.9 04/05/2016 Ot 521.00 04/05/2016 Ot 733.90 04/05/2016 Ot V15.3 04/05/2016 Ot V45.71 04/05/2016 Ot V58.69 04/05/2016 Ot V87.41 04/05/2016 Ot 174.9 MALIGN NEOPL BREAST NOS 04/05/2016 Ot 719.40 JOINT PAIN- UNSPEC 04/05/2016 Ot 733.90 BONE CARTILAGE DIS NOS 04/05/2016 Ot 780.79 OTH MALAISE FATIGUE 04/05/2016 Ot V15.3 HX OF IRRADIATION 04/05/2016 Ot V45.71 ACQUIRED ABSENCE OF BREAST AND NIPPLE 04/05/2016 Ot V58.69 OTH MED,LT, CURRENT USE 04/05/2016 Ot V87.41 PERSONAL HISTORY OF ANTINEOPLASTIC CHEMO 04/05/2016 Ot 733.90 BONE CARTILAGE DIS NOS 04/05/2016 Ot V10.3 HX OF BREAST MALIGNANCY 04/05/2016 Ot V76.11 SCRN MAMMO- HIGH RISK PT, MALIGNANT NEOPL 04/05/2016 Ot 079.4 HUMAN PAPILLOMA VIRUS 04/05/2016 Ot 174.9 MALIGN NEOPL BREAST NOS 04/05/2016 Ot 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 04/05/2016 Ot 733.90 BONE CARTILAGE DIS NOS 04/05/2016 Ot V15.3 HX OF IRRADIATION 04/05/2016 Ot V45.71 ACQUIRED ABSENCE OF BREAST AND NIPPLE 04/05/2016 Ot V58.69 OTH MED,LT, CURRENT USE 04/05/2016 Ot V87.41 PERSONAL HISTORY OF ANTINEOPLASTIC CHEMO 04/05/2016 Ot 079.4 HUMAN PAPILLOMA VIRUS 04/05/2016 Ot 174.9 MALIGN NEOPL BREAST NOS 04/05/2016 Ot 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 04/05/2016 Ot 465.9 ACUTE URI NOS 04/05/2016 Ot 733.90 BONE CARTILAGE DIS NOS 04/05/2016 Ot V15.3 HX OF IRRADIATION 04/05/2016 Ot V45.71 ACQUIRED ABSENCE OF BREAST AND NIPPLE 04/05/2016 Ot V58.69 OTH MED,LT, CURRENT USE 04/05/2016 Ot V87.41 PERSONAL HISTORY OF ANTINEOPLASTIC CHEMO 04/05/2016 Ot V10.3 HX OF BREAST MALIGNANCY 04/05/2016 Ot V45.71 ACQUIRED ABSENCE OF BREAST AND NIPPLE 04/05/2016 Ot V76.11 SCRN MAMMO- HIGH RISK PT, MALIGNANT NEOPL 04/05/2016 Ot 174.9 MALIGN NEOPL BREAST NOS 04/05/2016 Ot 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 04/05/2016 Ot 305.1 TOBACCO USE DISORDER 04/05/2016 Ot 496 CHR AIRWAY OBSTRUCT NEC 04/05/2016 Ot 733.90 BONE CARTILAGE DIS NOS 04/05/2016 Ot V15.3 HX OF IRRADIATION 04/05/2016 Ot V45.71 ACQUIRED ABSENCE OF BREAST AND NIPPLE 04/05/2016 Ot V58.69 OTH MED,LT, CURRENT USE 04/05/2016 Ot V87.41 PERSONAL HISTORY OF ANTINEOPLASTIC CHEMO 04/05/2016 ABRAHAN AIKENP Ot 174.9 MALIGN NEOPL BREAST NOS 04/05/2016 ABRAHAN AIKEN PHYSICAL INTEGRATION PRACTITIONER Ot 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 04/05/2016 ABRAHAN AIKEN PHYSICAL INTEGRATION PRACTITIONER Ot 305.1 TOBACCO USE DISORDER 04/05/2016 ABRAHAN AIKENP Ot 496 CHR AIRWAY OBSTRUCT NEC 04/05/2016 ABRAHAN AIKEN PHYSICAL INTEGRATION PRACTITIONER Ot 733.90 BONE CARTILAGE DIS NOS 04/05/2016 ABRAHAN AIKEN PHYSICAL INTEGRATION PRACTITIONER Ot V15.3 HX OF IRRADIATION 04/05/2016 ABRAHAN AIKEN PHYSICAL INTEGRATION PRACTITIONER Ot V45.71 ACQUIRED ABSENCE OF BREAST AND NIPPLE 04/05/2016 ABRAHAN AIKENP Ot V58.69 OTH MED,LT,CURRENT USE 04/05/2016 ABRAHAN AIKEN PHYSICAL INTEGRATION PRACTITIONER Ot V87.41 PERSONAL HISTORY OF ANTINEOPLASTIC CHEMO 04/05/2016 ABRAHAN AIKEN PHYSICAL INTEGRATION PRACTITIONER Ot 733.90 BONE CARTILAGE DIS NOS 04/05/2016 ABRAHAN AIKEN PHYSICAL INTEGRATION PRACTITIONER Ot V76.12 OTH SCREEN MAMMO-MALIGN NEOPLASM OF MESERET 04/05/2016 ABRAHAN AIKEN PHYSICAL INTEGRATION PRACTITIONER Ot 174.9 MALIGN NEOPL BREAST NOS 04/05/2016 ABRAHAN AIKEN S PHYSICAL INTEGRATION PRACTITIONER Ot 174.9 MALIGN NEOPL BREAST NOS 04/05/2016 ABRAHAN AIKEN S PHYSICAL INTEGRATION PRACTITIONER Ot 723.1 CERVICALGIA 04/05/2016 AIKENABRAHAN Pete S PHYSICAL INTEGRATION PRACTITIONER Ot 780.4 DIZZINESS AND GIDDINESS 04/05/2016 ABRAHAN AIKEN S PHYSICAL INTEGRATION PRACTITIONER Ot 784.0 HEADACHE 04/05/2016 ABRAHAN AIKEN S PHYSICAL INTEGRATION PRACTITIONER Ot 174.9 MALIGN NEOPL BREAST NOS 04/05/2016 AIKENABRAHAN Pete S PHYSICAL INTEGRATION PRACTITIONER Ot 723.1 CERVICALGIA 04/05/2016 ABRAHAN AIKEN PHYSICAL INTEGRATION PRACTITIONER Ot 780.4 DIZZINESS AND GIDDINESS 04/05/2016 AIKENABRAHAN Pete PHYSICAL INTEGRATION PRACTITIONER Ot 784.0 HEADACHE 04/05/2016 AIKENABRAHAN Pete S PHYSICAL INTEGRATION PRACTITIONER Ot 723.1 CERVICALGIA 04/05/2016 KAITLIN SANDHU N Ot 174.9 MALIGN NEOPL BREAST NOS 04/05/2016 EDSONKAITLIN N Ot 174.9 MALIGN NEOPL BREAST NOS 04/05/2016 KAITLIN SANDHU N Ot 496 CHR AIRWAY OBSTRUCT NEC 04/05/2016 KAITLIN SANDHU N Ot 793.11 SOLITARY PULMONARY NODULE 04/05/2016 ALEXANDRIA DENNIS, ERON Blackman Ot 578.1 BLOOD IN STOOL 04/05/2016 A[place] DENNIS, ERON Blackman Ot V72.84 EXAM PRE-OPERATIVE NOS 04/05/2016 A[place]RI[place] DENNIS, ERON Blackman Ot V76.51 SCREEN MAL NEOP-COLON 04/05/2016 ABRAHAN AIKEN S PHYSICAL INTEGRATION PRACTITIONER Ot 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 04/05/2016 ABRAHAN AIKEN S PHYSICAL INTEGRATION PRACTITIONER Ot C50.411 MALIG NEOPLM OF UPPER-OUTER QUADRANT OF 04/05/2016 NELLI ABRAHAN S PHYSICAL INTEGRATION PRACTITIONER Ot R91.1 SOLITARY PULMONARY NODULE 04/05/2016 NELLI ABRAHAN S PHYSICAL INTEGRATION PRACTITIONER Ot Z12.31 ENCNTR SCREEN MAMMOGRAM FOR MALIGNANT NE 04/05/2016 BINTA MORALES DO Ot C50.411 MALIG NEOPLM OF UPPER-OUTER QUADRANT OF 04/05/2016 CARMEN BINTA Hiral Ot J44.9 CHRONIC OBSTRUCTIVE PULMONARY DISEASE, U 04/05/2016 BINTA MORALES DO Hiral Ot R91.1 SOLITARY PULMONARY NODULE 04/05/2016 CARMEN BINTA BARTLETT Ot R94.2 ABNORMAL RESULTS OF PULMONARY FUNCTION S 04/05/2016 CARMEN BARTLETT BINTA Hiral Ot Z72.0 TOBACCO USE 04/05/2016 ROB DENNIS FACC, ALI FACP CCDS Ot E11.9 TYPE 2 DIABETES MELLITUS WITHOUT COMPLIC 04/05/2016 ROB DENNIS FACC, ALI FACP CCDS Ot I10 ESSENTIAL (PRIMARY) HYPERTENSION 04/05/2016 ROB DENNIS FACC, ALI FACP CCDS Ot J43.8 OTHER EMPHYSEMA 04/05/2016 ROB DENNIS FACC, ALI FACP CCDS Ot R07.89 OTHER CHEST PAIN 04/05/2016 ROB DENNIS FACC, ALI FACP CCDS Ot Z72.0 TOBACCO USE 04/05/2016 ALEX[place]RIA DENNIS, ERON Blackman Ot R13.10 DYSPHAGIA, UNSPECIFIED 04/05/2016 ALEX[place]RIA DENNIS, ERON Blackman Ot Z01.818 ENCOUNTER FOR OTHER PREPROCEDURAL EXAMIN 04/05/2016 KAITLIN SANDHU Ot C50.411 MALIG NEOPLM OF UPPER-OUTER QUADRANT OF 04/05/2016 KAITLIN SANDHU Ot E03.9 HYPOTHYROIDISM, UNSPECIFIED 04/05/2016 KAITLIN SANDHU Ot R91.1 SOLITARY PULMONARY NODULE 04/05/2016 ROB DENNIS FACC, ALI FACP CCDS Ot E11.9 TYPE 2 DIABETES MELLITUS WITHOUT COMPLIC 04/05/2016 ROB ARORAC, ALI FACP CCDS Ot I10 ESSENTIAL (PRIMARY) HYPERTENSION 04/05/2016 ROB DENNIS FACC, ALI FACP CCDS Ot J43.8 OTHER EMPHYSEMA 04/05/2016 ROB DENNIS FACC, ALI FACP CCDS Ot R07.89 OTHER CHEST PAIN 04/05/2016 ROB ARORAC, ALI FACP CCDS Ot Z72.0 TOBACCO USE 04/27/2016 Ot 611.72 04/27/2016 Ot 611.8 04/27/2016 Ot 174.9 04/27/2016 Ot 733.90 04/27/2016 Ot V82.81 04/27/2016 Ot 174.9 04/27/2016 Ot V45.71 04/27/2016 Ot V76.12 04/27/2016 Ot 174.9 MALIGN NEOPL BREAST NOS 04/27/2016 Ot 174.9 MALIGN NEOPL BREAST NOS 04/27/2016 Ot 280.9 IRON DEFIC ANEMIA NOS 04/27/2016 Ot 305.1 TOBACCO USE DISORDER 04/27/2016 Ot 724.00 SPINAL STENOSIS NOS 04/27/2016 Ot 733.90 BONE CARTILAGE DIS NOS 04/27/2016 Ot 785.6 ENLARGEMENT LYMPH NODES 04/27/2016 Ot V45.71 ACQUIRED ABSENCE OF BREAST AND NIPPLE 04/27/2016 Ot 174.9 MALIGN NEOPL BREAST NOS 04/27/2016 Ot 174.9 MALIGN NEOPL BREAST NOS 04/27/2016 Ot 285.9 ANEMIA NOS 04/27/2016 Ot 733.90 BONE CARTILAGE DIS NOS 04/27/2016 Ot 786.50 CHEST PAIN NOS 04/27/2016 Ot V15.3 HX OF IRRADIATION 04/27/2016 Ot V45.71 ACQUIRED ABSENCE OF BREAST AND NIPPLE 04/27/2016 Ot V58.69 OTH MED,LT, CURRENT USE 04/27/2016 Ot V87.41 PERSONAL HISTORY OF ANTINEOPLASTIC CHEMO 04/27/2016 Ot 401.9 HYPERTENSION NOS 04/27/2016 Ot 786.50 CHEST PAIN NOS 04/27/2016 Ot V58.69 OTH MED,LT, CURRENT USE 04/27/2016 Ot 174.9 MALIGN NEOPL BREAST NOS 04/27/2016 Ot 719.40 JOINT PAIN- UNSPEC 04/27/2016 Ot 733.90 BONE CARTILAGE DIS NOS 04/27/2016 Ot 780.79 OTH MALAISE FATIGUE 04/27/2016 Ot V15.3 HX OF IRRADIATION 04/27/2016 Ot V45.71 ACQUIRED ABSENCE OF BREAST AND NIPPLE 04/27/2016 Ot V58.69 OTH MED,LT, CURRENT USE 04/27/2016 Ot V87.41 PERSONAL HISTORY OF ANTINEOPLASTIC CHEMO 04/27/2016 Ot 733.90 BONE CARTILAGE DIS NOS 04/27/2016 Ot V10.3 HX OF BREAST MALIGNANCY 04/27/2016 Ot V76.11 SCRN MAMMO- HIGH RISK PT, MALIGNANT NEOPL 04/27/2016 Ot 079.4 HUMAN PAPILLOMA VIRUS 04/27/2016 Ot 174.9 MALIGN NEOPL BREAST NOS 04/27/2016 Ot 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 04/27/2016 Ot 733.90 BONE CARTILAGE DIS NOS 04/27/2016 Ot V15.3 HX OF IRRADIATION 04/27/2016 Ot V45.71 ACQUIRED ABSENCE OF BREAST AND NIPPLE 04/27/2016 Ot V58.69 OTH MED,LT, CURRENT USE 04/27/2016 Ot V87.41 PERSONAL HISTORY OF ANTINEOPLASTIC CHEMO 04/27/2016 Ot 079.4 HUMAN PAPILLOMA VIRUS 04/27/2016 Ot 174.9 MALIGN NEOPL BREAST NOS 04/27/2016 Ot 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 04/27/2016 Ot 465.9 ACUTE URI NOS 04/27/2016 Ot 733.90 BONE CARTILAGE DIS NOS 04/27/2016 Ot V15.3 HX OF IRRADIATION 04/27/2016 Ot V45.71 ACQUIRED ABSENCE OF BREAST AND NIPPLE 04/27/2016 Ot V58.69 OTH MED,LT, CURRENT USE 04/27/2016 Ot V87.41 PERSONAL HISTORY OF ANTINEOPLASTIC CHEMO 04/27/2016 Ot V10.3 HX OF BREAST MALIGNANCY 04/27/2016 Ot V45.71 ACQUIRED ABSENCE OF BREAST AND NIPPLE 04/27/2016 Ot V76.11 SCRN MAMMO- HIGH RISK PT, MALIGNANT NEOPL 04/27/2016 Ot 174.9 MALIGN NEOPL BREAST NOS 04/27/2016 Ot 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 04/27/2016 Ot 305.1 TOBACCO USE DISORDER 04/27/2016 Ot 496 CHR AIRWAY OBSTRUCT NEC 04/27/2016 Ot 733.90 BONE CARTILAGE DIS NOS 04/27/2016 Ot V15.3 HX OF IRRADIATION 04/27/2016 Ot V45.71 ACQUIRED ABSENCE OF BREAST AND NIPPLE 04/27/2016 Ot V58.69 OTH MED,LT, CURRENT USE 04/27/2016 Ot V87.41 PERSONAL HISTORY OF ANTINEOPLASTIC CHEMO 04/27/2016 ABRAHAN AIKEN PHYSICAL INTEGRATION PRACTITIONER Ot 174.9 MALIGN NEOPL BREAST NOS 04/27/2016 ABRAHAN AIKEN PHYSICAL INTEGRATION PRACTITIONER Ot 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 04/27/2016 ABRAHAN AIKEN PHYSICAL INTEGRATION PRACTITIONER Ot 305.1 TOBACCO USE DISORDER 04/27/2016 ERROL AIKENAH S PHYSICAL INTEGRATION PRACTITIONER Ot 496 CHR AIRWAY OBSTRUCT NEC 04/27/2016 AIKENABRAHAN Pete PHYSICAL INTEGRATION PRACTITIONER Ot 733.90 BONE CARTILAGE DIS NOS 04/27/2016 AIKENABRAHAN Pete PHYSICAL INTEGRATION PRACTITIONER Ot V15.3 HX OF IRRADIATION 04/27/2016 ABRAHAN AIKEN PHYSICAL INTEGRATION PRACTITIONER Ot V45.71 ACQUIRED ABSENCE OF BREAST AND NIPPLE 04/27/2016 AIKENABRAHAN Pete PHYSICAL INTEGRATION PRACTITIONER Ot V58.69 OTH MED,LT,CURRENT USE 04/27/2016 ABRAHAN AIKEN PHYSICAL INTEGRATION PRACTITIONER Ot V87.41 PERSONAL HISTORY OF ANTINEOPLASTIC CHEMO 04/27/2016 AIKENABRAHAN Pete PHYSICAL INTEGRATION PRACTITIONER Ot 733.90 BONE CARTILAGE DIS NOS 04/27/2016 ABRAHAN AIKEN PHYSICAL INTEGRATION PRACTITIONER Ot V76.12 OTH SCREEN MAMMO-MALIGN NEOPLASM OF MESERET 04/27/2016 NELLI ABRAHAN Pete PHYSICAL INTEGRATION PRACTITIONER Ot 174.9 MALIGN NEOPL BREAST NOS 04/27/2016 NELLI ABRAHAN Pete PHYSICAL INTEGRATION PRACTITIONER Ot 174.9 MALIGN NEOPL BREAST NOS 04/27/2016 NELLI ABRAHAN Pete PHYSICAL INTEGRATION PRACTITIONER Ot 723.1 CERVICALGIA 04/27/2016 NELLI ABRAHAN Pete PHYSICAL INTEGRATION PRACTITIONER Ot 780.4 DIZZINESS AND GIDDINESS 04/27/2016 AIKEN ABRAHAN Pete PHYSICAL INTEGRATION PRACTITIONER Ot 784.0 HEADACHE 04/27/2016 AIKENABRAHAN Pete S PHYSICAL INTEGRATION PRACTITIONER Ot 174.9 MALIGN NEOPL BREAST NOS 04/27/2016 NELLI ABRAHAN Pete PHYSICAL INTEGRATION PRACTITIONER Ot 723.1 CERVICALGIA 04/27/2016 NELLI ABRAHAN Pete PHYSICAL INTEGRATION PRACTITIONER Ot 780.4 DIZZINESS AND GIDDINESS 04/27/2016 NELLI ABRAHAN Pete PHYSICAL INTEGRATION PRACTITIONER Ot 784.0 HEADACHE 04/27/2016 NELLI ABRAHAN Pete PHYSICAL INTEGRATION PRACTITIONER Ot 723.1 CERVICALGIA 04/27/2016 KAITLIN SANDHU N Ot 174.9 MALIGN NEOPL BREAST NOS 04/27/2016 KAITLIN SANDHU N Ot 174.9 MALIGN NEOPL BREAST NOS 04/27/2016 KAITLIN SANDHU Ot 496 CHR AIRWAY OBSTRUCT NEC 04/27/2016 KAITLIN SANDHU Ot 793.11 SOLITARY PULMONARY NODULE 04/27/2016 ALEXANDRIA DENNIS, ERON Blackman Ot 578.1 BLOOD IN STOOL 04/27/2016 ALEX[place]RI[place] DENNIS, ERON Blackman Ot V72.84 EXAM PRE-OPERATIVE NOS 04/27/2016 ALEX[place]RI[place] DENNIS, ERON Blackman Ot V76.51 SCREEN MAL NEOP-COLON 04/27/2016 ABRAHAN AIKEN PHYSICAL INTEGRATION PRACTITIONER Ot 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 04/27/2016 ABRAHAN AIKEN PHYSICAL INTEGRATION PRACTITIONER Ot C50.411 MALIG NEOPLM OF UPPER-OUTER QUADRANT OF 04/27/2016 ABRAHAN AIKEN PHYSICAL INTEGRATION PRACTITIONER Ot R91.1 SOLITARY PULMONARY NODULE 04/27/2016 ABRAHAN AIKEN PHYSICAL INTEGRATION PRACTITIONER Ot Z12.31 ENCNTR SCREEN MAMMOGRAM FOR MALIGNANT NE 04/27/2016 BINTA MORALES DO Ot C50.411 MALIG NEOPLM OF UPPER-OUTER QUADRANT OF 04/27/2016 BINTA MORALES DO Ot J44.9 CHRONIC OBSTRUCTIVE PULMONARY DISEASE, U 04/27/2016 BINTA MORALES DO Ot R91.1 SOLITARY PULMONARY NODULE 04/27/2016 BINTA MORALES DO, Ot R94.2 ABNORMAL RESULTS OF PULMONARY FUNCTION S 04/27/2016 BINTA MORALES DO Ot Z72.0 TOBACCO USE 04/27/2016 ROB DENNIS FACC, ALI FACP CCDS Ot E11.9 TYPE 2 DIABETES MELLITUS WITHOUT COMPLIC 04/27/2016 ROB DENNIS FACC, ALI FACP CCDS Ot I10 ESSENTIAL (PRIMARY) HYPERTENSION 04/27/2016 ROB DENNIS FACC, ALI FACP CCDS Ot J43.8 OTHER EMPHYSEMA 04/27/2016 ROB DENNIS FACC, ALI FACP CCDS Ot R07.89 OTHER CHEST PAIN 04/27/2016 ROB DENNIS FACC, ALI FACP CCDS Ot Z72.0 TOBACCO USE 04/27/2016 [place] DENNIS, ERON Blackman Ot R13.10 DYSPHAGIA, UNSPECIFIED 04/27/2016 [place] DENNIS, ERON Blackman Ot Z01.818 ENCOUNTER FOR OTHER PREPROCEDURAL EXAMIN 04/27/2016 KAITLIN SANDHU Ot C50.411 MALIG NEOPLM OF UPPER-OUTER QUADRANT OF 04/27/2016 KAITLIN SANDHU Ot E03.9 HYPOTHYROIDISM, UNSPECIFIED 04/27/2016 KAITLIN SANDHU Ot R91.1 SOLITARY PULMONARY NODULE 04/27/2016 Ot 174.9 04/27/2016 Ot 521.00 04/27/2016 Ot 733.90 04/27/2016 Ot V15.3 04/27/2016 Ot V45.71 04/27/2016 Ot V58.69 04/27/2016 Ot V87.41 04/27/2016 Ot 174.9 MALIGN NEOPL BREAST NOS 04/27/2016 Ot 719.40 JOINT PAIN- UNSPEC 04/27/2016 Ot 733.90 BONE CARTILAGE DIS NOS 04/27/2016 Ot 780.79 OTH MALAISE FATIGUE 04/27/2016 Ot V15.3 HX OF IRRADIATION 04/27/2016 Ot V45.71 ACQUIRED ABSENCE OF BREAST AND NIPPLE 04/27/2016 Ot V58.69 OTH MED,LT, CURRENT USE 04/27/2016 Ot V87.41 PERSONAL HISTORY OF ANTINEOPLASTIC CHEMO 04/27/2016 Ot 733.90 BONE CARTILAGE DIS NOS 04/27/2016 Ot V10.3 HX OF BREAST MALIGNANCY 04/27/2016 Ot V76.11 SCRN MAMMO- HIGH RISK PT, MALIGNANT NEOPL 04/27/2016 Ot 079.4 HUMAN PAPILLOMA VIRUS 04/27/2016 Ot 174.9 MALIGN NEOPL BREAST NOS 04/27/2016 Ot 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 04/27/2016 Ot 733.90 BONE CARTILAGE DIS NOS 04/27/2016 Ot V15.3 HX OF IRRADIATION 04/27/2016 Ot V45.71 ACQUIRED ABSENCE OF BREAST AND NIPPLE 04/27/2016 Ot V58.69 OTH MED,LT, CURRENT USE 04/27/2016 Ot V87.41 PERSONAL HISTORY OF ANTINEOPLASTIC CHEMO 04/27/2016 Ot 079.4 HUMAN PAPILLOMA VIRUS 04/27/2016 Ot 174.9 MALIGN NEOPL BREAST NOS 04/27/2016 Ot 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 04/27/2016 Ot 465.9 ACUTE URI NOS 04/27/2016 Ot 733.90 BONE CARTILAGE DIS NOS 04/27/2016 Ot V15.3 HX OF IRRADIATION 04/27/2016 Ot V45.71 ACQUIRED ABSENCE OF BREAST AND NIPPLE 04/27/2016 Ot V58.69 OTH MED,LT, CURRENT USE 04/27/2016 Ot V87.41 PERSONAL HISTORY OF ANTINEOPLASTIC CHEMO 04/27/2016 Ot V10.3 HX OF BREAST MALIGNANCY 04/27/2016 Ot V45.71 ACQUIRED ABSENCE OF BREAST AND NIPPLE 04/27/2016 Ot V76.11 SCRN MAMMO- HIGH RISK PT, MALIGNANT NEOPL 04/27/2016 Ot 174.9 MALIGN NEOPL BREAST NOS 04/27/2016 Ot 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 04/27/2016 Ot 305.1 TOBACCO USE DISORDER 04/27/2016 Ot 496 CHR AIRWAY OBSTRUCT NEC 04/27/2016 Ot 733.90 BONE CARTILAGE DIS NOS 04/27/2016 Ot V15.3 HX OF IRRADIATION 04/27/2016 Ot V45.71 ACQUIRED ABSENCE OF BREAST AND NIPPLE 04/27/2016 Ot V58.69 OTH MED,LT, CURRENT USE 04/27/2016 Ot V87.41 PERSONAL HISTORY OF ANTINEOPLASTIC CHEMO 04/27/2016 ABRAHAN AIKEN PHYSICAL INTEGRATION PRACTITIONER Ot 174.9 MALIGN NEOPL BREAST NOS 04/27/2016 ABRAHAN AIKEN PHYSICAL INTEGRATION PRACTITIONER Ot 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 04/27/2016 ABRAHAN AIKEN PHYSICAL INTEGRATION PRACTITIONER Ot 305.1 TOBACCO USE DISORDER 04/27/2016 ABRAHAN AIKEN PHYSICAL INTEGRATION PRACTITIONER Ot 496 CHR AIRWAY OBSTRUCT NEC 04/27/2016 ABRAHAN AIKEN PHYSICAL INTEGRATION PRACTITIONER Ot 733.90 BONE CARTILAGE DIS NOS 04/27/2016 ABRAHAN AIKEN PHYSICAL INTEGRATION PRACTITIONER Ot V15.3 HX OF IRRADIATION 04/27/2016 ABRAHAN AIKEN PHYSICAL INTEGRATION PRACTITIONER Ot V45.71 ACQUIRED ABSENCE OF BREAST AND NIPPLE 04/27/2016 ABRAHAN AIKEN PHYSICAL INTEGRATION PRACTITIONER Ot V58.69 OTH MED,LT,CURRENT USE 04/27/2016 ABRAHAN AIKEN PHYSICAL INTEGRATION PRACTITIONER Ot V87.41 PERSONAL HISTORY OF ANTINEOPLASTIC CHEMO 04/27/2016 ABRAHAN AIKEN PHYSICAL INTEGRATION PRACTITIONER Ot 733.90 BONE CARTILAGE DIS NOS 04/27/2016 ABRAHAN AIKEN PHYSICAL INTEGRATION PRACTITIONER Ot V76.12 OTH SCREEN MAMMO-MALIGN NEOPLASM OF MESERET 04/27/2016 ABRAHAN AIKEN PHYSICAL INTEGRATION PRACTITIONER Ot 174.9 MALIGN NEOPL BREAST NOS 04/27/2016 ABRAHAN AIKEN PHYSICAL INTEGRATION PRACTITIONER Ot 174.9 MALIGN NEOPL BREAST NOS 04/27/2016 ABRAHAN AIKEN PHYSICAL INTEGRATION PRACTITIONER Ot 723.1 CERVICALGIA 04/27/2016 AIKEN ABRAHAN Pete PHYSICAL INTEGRATION PRACTITIONER Ot 780.4 DIZZINESS AND GIDDINESS 04/27/2016 AIKEN ABRAHAN ePte PHYSICAL INTEGRATION PRACTITIONER Ot 784.0 HEADACHE 04/27/2016 AIKENABRAHAN Pete S PHYSICAL INTEGRATION PRACTITIONER Ot 174.9 MALIGN NEOPL BREAST NOS 04/27/2016 ABRAHAN AIKEN PHYSICAL INTEGRATION PRACTITIONER Ot 723.1 CERVICALGIA 04/27/2016 NELLI ABRAHAN Pete PHYSICAL INTEGRATION PRACTITIONER Ot 780.4 DIZZINESS AND GIDDINESS 04/27/2016 AIKEN ABRAHAN S PHYSICAL INTEGRATION PRACTITIONER Ot 784.0 HEADACHE 04/27/2016 ABRAHAN AIKEN PHYSICAL INTEGRATION PRACTITIONER Ot 723.1 CERVICALGIA 04/27/2016 EDSONKAITLIN N Ot 174.9 MALIGN NEOPL BREAST NOS 04/27/2016 EDSONKAITLIN N Ot 174.9 MALIGN NEOPL BREAST NOS 04/27/2016 KAITLIN SANDHU N Ot 496 CHR AIRWAY OBSTRUCT NEC 04/27/2016 KAITLIN SANDHU Ot 793.11 SOLITARY PULMONARY NODULE 04/27/2016 ALEXANDRIA DENNIS, ERON M Ot 578.1 BLOOD IN STOOL 04/27/2016 ALEXANDRIA DENNIS, ERON Blackman Ot V72.84 EXAM PRE-OPERATIVE NOS 04/27/2016 ALEXANDRIA DENNIS, ERON Blackman Ot V76.51 SCREEN MAL NEOP-COLON 04/27/2016 ABRAHAN AIKEN S PHYSICAL INTEGRATION PRACTITIONER Ot 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 04/27/2016 ABRAHAN AIKEN S PHYSICAL INTEGRATION PRACTITIONER Ot C50.411 MALIG NEOPLM OF UPPER-OUTER QUADRANT OF 04/27/2016 ABRAHAN AIKEN PHYSICAL INTEGRATION PRACTITIONER Ot R91.1 SOLITARY PULMONARY NODULE 04/27/2016 ABRAHAN AIKEN Juan R PHYSICAL INTEGRATION PRACTITIONER Ot Z12.31 ENCNTR SCREEN MAMMOGRAM FOR MALIGNANT NE 04/27/2016 BINTA MORALES DO Ot C50.411 MALIG NEOPLM OF UPPER-OUTER QUADRANT OF 04/27/2016 BINTA MORALES DO Ot J44.9 CHRONIC OBSTRUCTIVE PULMONARY DISEASE, U 04/27/2016 BINTA MORALES DO Ot R91.1 SOLITARY PULMONARY NODULE 04/27/2016 BINTA MORALES DO, Ot R94.2 ABNORMAL RESULTS OF PULMONARY FUNCTION S 04/27/2016 BINTA MORALES DO Ot Z72.0 TOBACCO USE 04/27/2016 ROB DENNIS FAC, ALI FACP CCDS Ot E11.9 TYPE 2 DIABETES MELLITUS WITHOUT COMPLIC 04/27/2016 ROB DENNIS FAC, ALI FACP CCDS Ot I10 ESSENTIAL (PRIMARY) HYPERTENSION 04/27/2016 ROB DENNIS FAC, ALI FACP CCDS Ot J43.8 OTHER EMPHYSEMA 04/27/2016 ROB DENNIS FAC, ALI FACP CCDS Ot R07.89 OTHER CHEST PAIN 04/27/2016 ROB DENNIS FAC, ALI FACP CCDS Ot Z72.0 TOBACCO USE 04/27/2016 ALEXANDRIA DENNIS, ERON Blackman Ot R13.10 DYSPHAGIA, UNSPECIFIED 04/27/2016 ALEXANDRIA DENNIS, ERON Blacmkan Ot Z01.818 ENCOUNTER FOR OTHER PREPROCEDURAL EXAMIN 04/27/2016 KAITLIN SANDHU Ot C50.411 MALIG NEOPLM OF UPPER-OUTER QUADRANT OF 04/27/2016 KAITLIN SANDHU Ot E03.9 HYPOTHYROIDISM, UNSPECIFIED 04/27/2016 KAITLIN SANDHU Ot R91.1 SOLITARY PULMONARY NODULE 04/30/2016 Ot 174.9 04/30/2016 Ot 521.00 04/30/2016 Ot 733.90 04/30/2016 Ot V15.3 04/30/2016 Ot V45.71 04/30/2016 Ot V58.69 04/30/2016 Ot V87.41 04/30/2016 Ot 174.9 MALIGN NEOPL BREAST NOS 04/30/2016 Ot 719.40 JOINT PAIN- UNSPEC 04/30/2016 Ot 733.90 BONE CARTILAGE DIS NOS 04/30/2016 Ot 780.79 OTH MALAISE FATIGUE 04/30/2016 Ot V15.3 HX OF IRRADIATION 04/30/2016 Ot V45.71 ACQUIRED ABSENCE OF BREAST AND NIPPLE 04/30/2016 Ot V58.69 OTH MED,LT, CURRENT USE 04/30/2016 Ot V87.41 PERSONAL HISTORY OF ANTINEOPLASTIC CHEMO 04/30/2016 Ot 733.90 BONE CARTILAGE DIS NOS 04/30/2016 Ot V10.3 HX OF BREAST MALIGNANCY 04/30/2016 Ot V76.11 SCRN MAMMO- HIGH RISK PT, MALIGNANT NEOPL 04/30/2016 Ot 079.4 HUMAN PAPILLOMA VIRUS 04/30/2016 Ot 174.9 MALIGN NEOPL BREAST NOS 04/30/2016 Ot 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 04/30/2016 Ot 733.90 BONE CARTILAGE DIS NOS 04/30/2016 Ot V15.3 HX OF IRRADIATION 04/30/2016 Ot V45.71 ACQUIRED ABSENCE OF BREAST AND NIPPLE 04/30/2016 Ot V58.69 OTH MED,LT, CURRENT USE 04/30/2016 Ot V87.41 PERSONAL HISTORY OF ANTINEOPLASTIC CHEMO 04/30/2016 Ot 079.4 HUMAN PAPILLOMA VIRUS 04/30/2016 Ot 174.9 MALIGN NEOPL BREAST NOS 04/30/2016 Ot 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 04/30/2016 Ot 465.9 ACUTE URI NOS 04/30/2016 Ot 733.90 BONE CARTILAGE DIS NOS 04/30/2016 Ot V15.3 HX OF IRRADIATION 04/30/2016 Ot V45.71 ACQUIRED ABSENCE OF BREAST AND NIPPLE 04/30/2016 Ot V58.69 OTH MED,LT, CURRENT USE 04/30/2016 Ot V87.41 PERSONAL HISTORY OF ANTINEOPLASTIC CHEMO 04/30/2016 Ot V10.3 HX OF BREAST MALIGNANCY 04/30/2016 Ot V45.71 ACQUIRED ABSENCE OF BREAST AND NIPPLE 04/30/2016 Ot V76.11 SCRN MAMMO- HIGH RISK PT, MALIGNANT NEOPL 04/30/2016 Ot 174.9 MALIGN NEOPL BREAST NOS 04/30/2016 Ot 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 04/30/2016 Ot 305.1 TOBACCO USE DISORDER 04/30/2016 Ot 496 CHR AIRWAY OBSTRUCT NEC 04/30/2016 Ot 733.90 BONE CARTILAGE DIS NOS 04/30/2016 Ot V15.3 HX OF IRRADIATION 04/30/2016 Ot V45.71 ACQUIRED ABSENCE OF BREAST AND NIPPLE 04/30/2016 Ot V58.69 OTH MED,LT, CURRENT USE 04/30/2016 Ot V87.41 PERSONAL HISTORY OF ANTINEOPLASTIC CHEMO 04/30/2016 ABRAHAN AIKEN PHYSICAL INTEGRATION PRACTITIONER Ot 174.9 MALIGN NEOPL BREAST NOS 04/30/2016 ABRAHAN AIKEN PHYSICAL INTEGRATION PRACTITIONER Ot 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 04/30/2016 ABRAHAN AIKEN PHYSICAL INTEGRATION PRACTITIONER Ot 305.1 TOBACCO USE DISORDER 04/30/2016 NELLI ABRAHAN Pete PHYSICAL INTEGRATION PRACTITIONER Ot 496 CHR AIRWAY OBSTRUCT NEC 04/30/2016 AIKENABRAHAN Pete PHYSICAL INTEGRATION PRACTITIONER Ot 733.90 BONE CARTILAGE DIS NOS 04/30/2016 AIKENABRAHAN Pete PHYSICAL INTEGRATION PRACTITIONER Ot V15.3 HX OF IRRADIATION 04/30/2016 AIKENABRAHAN Pete PHYSICAL INTEGRATION PRACTITIONER Ot V45.71 ACQUIRED ABSENCE OF BREAST AND NIPPLE 04/30/2016 AIKENABRAHAN Pete PHYSICAL INTEGRATION PRACTITIONER Ot V58.69 OTH MED,LT,CURRENT USE 04/30/2016 ABRAHAN AIKEN PHYSICAL INTEGRATION PRACTITIONER Ot V87.41 PERSONAL HISTORY OF ANTINEOPLASTIC CHEMO 04/30/2016 AIKENABRAHAN Pete PHYSICAL INTEGRATION PRACTITIONER Ot 733.90 BONE CARTILAGE DIS NOS 04/30/2016 ABRAHAN AIKEN PHYSICAL INTEGRATION PRACTITIONER Ot V76.12 OTH SCREEN MAMMO-MALIGN NEOPLASM OF MESERET 04/30/2016 NELLI ABRAHAN Pete PHYSICAL INTEGRATION PRACTITIONER Ot 174.9 MALIGN NEOPL BREAST NOS 04/30/2016 NELLI ABRAHAN Pete PHYSICAL INTEGRATION PRACTITIONER Ot 174.9 MALIGN NEOPL BREAST NOS 04/30/2016 NELLI ABRAHAN Pete PHYSICAL INTEGRATION PRACTITIONER Ot 723.1 CERVICALGIA 04/30/2016 NELLI ABRAHAN Pete PHYSICAL INTEGRATION PRACTITIONER Ot 780.4 DIZZINESS AND GIDDINESS 04/30/2016 AIKEN ABRAHAN S PHYSICAL INTEGRATION PRACTITIONER Ot 784.0 HEADACHE 04/30/2016 AIKEN ABRAHAN Pete PHYSICAL INTEGRATION PRACTITIONER Ot 174.9 MALIGN NEOPL BREAST NOS 04/30/2016 NELLI ABRAHAN Pete PHYSICAL INTEGRATION PRACTITIONER Ot 723.1 CERVICALGIA 04/30/2016 NELLI ABRAHAN Pete PHYSICAL INTEGRATION PRACTITIONER Ot 780.4 DIZZINESS AND GIDDINESS 04/30/2016 NELLI ABRAHAN S PHYSICAL INTEGRATION PRACTITIONER Ot 784.0 HEADACHE 04/30/2016 NELLI ABRAHAN Pete PHYSICAL INTEGRATION PRACTITIONER Ot 723.1 CERVICALGIA 04/30/2016 KAITLIN SANDHU N Ot 174.9 MALIGN NEOPL BREAST NOS 04/30/2016 KAITLIN SANDHU N Ot 174.9 MALIGN NEOPL BREAST NOS 04/30/2016 KAITLIN SANDHU Ot 496 CHR AIRWAY OBSTRUCT NEC 04/30/2016 KAITLIN SANDHU Ot 793.11 SOLITARY PULMONARY NODULE 04/30/2016 ALEXANDRIA DENNIS, ERON Blackman Ot 578.1 BLOOD IN STOOL 04/30/2016 ALEXANDRIA DENNIS, ERON Blackman Ot V72.84 EXAM PRE-OPERATIVE NOS 04/30/2016 ALEXANDRIA DENNIS, ERON Blackman Ot V76.51 SCREEN MAL NEOP-COLON 04/30/2016 ABRAHAN AIKEN PHYSICAL INTEGRATION PRACTITIONER Ot 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 04/30/2016 ABRAHAN AIKEN PHYSICAL INTEGRATION PRACTITIONER Ot C50.411 MALIG NEOPLM OF UPPER-OUTER QUADRANT OF 04/30/2016 ABRAHAN AIKEN PHYSICAL INTEGRATION PRACTITIONER Ot R91.1 SOLITARY PULMONARY NODULE 04/30/2016 ABRAHAN AIKEN PHYSICAL INTEGRATION PRACTITIONER Ot Z12.31 ENCNTR SCREEN MAMMOGRAM FOR MALIGNANT NE 04/30/2016 BINTA MORALES DO Ot C50.411 MALIG NEOPLM OF UPPER-OUTER QUADRANT OF 04/30/2016 BINTA MORALES DO Ot J44.9 CHRONIC OBSTRUCTIVE PULMONARY DISEASE, U 04/30/2016 BINTA MORALES DO Ot R91.1 SOLITARY PULMONARY NODULE 04/30/2016 BINTA MORALES DO Ot R94.2 ABNORMAL RESULTS OF PULMONARY FUNCTION S 04/30/2016 BINTA MORALES DO Ot Z72.0 TOBACCO USE 04/30/2016 ROB DENNIS FACC, ALI FACP CCDS Ot E11.9 TYPE 2 DIABETES MELLITUS WITHOUT COMPLIC 04/30/2016 ROB DENNIS FACC, ALI FACP CCDS Ot I10 ESSENTIAL (PRIMARY) HYPERTENSION 04/30/2016 ROB DENNIS FACC, ALI FACP CCDS Ot J43.8 OTHER EMPHYSEMA 04/30/2016 ROB DENNIS FACC, ALI FACP CCDS Ot R07.89 OTHER CHEST PAIN 04/30/2016 ROB DENNIS FACC, ALI FACP CCDS Ot Z72.0 TOBACCO USE 04/30/2016 ALEXANDRIA DENNIS, ERON Blackman Ot R13.10 DYSPHAGIA, UNSPECIFIED 04/30/2016 ALEXANDRIA DENNIS, ERON Blackman Ot Z01.818 ENCOUNTER FOR OTHER PREPROCEDURAL EXAMIN 04/30/2016 KAITLIN SANDHU Ot C50.411 MALIG NEOPLM OF UPPER-OUTER QUADRANT OF 04/30/2016 KAITLIN SANDHU Ot E03.9 HYPOTHYROIDISM, UNSPECIFIED 04/30/2016 KAITLIN SANDHU Ot R91.1 SOLITARY PULMONARY NODULE 05/01/2016 ROB DENNIS FACC, ALI FACP CCDS Ot E11.9 TYPE 2 DIABETES MELLITUS WITHOUT COMPLIC 05/01/2016 ROB DENNIS FACC, ALI FACP CCDS Ot I10 ESSENTIAL (PRIMARY) HYPERTENSION 05/01/2016 ROB DENNIS FACC, ALI FACP CCDS Ot J43.8 OTHER EMPHYSEMA 05/01/2016 ROB DENNIS FACC, ALI FACP CCDS Ot R07.89 OTHER CHEST PAIN 05/01/2016 ROB DENNIS FACC, ALI FACP CCDS Ot Z72.0 TOBACCO USE 06/13/2016 Ot 174.9 06/13/2016 Ot 521.00 06/13/2016 Ot 733.90 06/13/2016 Ot V15.3 06/13/2016 Ot V45.71 06/13/2016 Ot V58.69 06/13/2016 Ot V87.41 06/13/2016 Ot 733.90 BONE CARTILAGE DIS NOS 06/13/2016 Ot V10.3 HX OF BREAST MALIGNANCY 06/13/2016 Ot V76.11 SCRN MAMMO- HIGH RISK PT, MALIGNANT NEOPL 06/13/2016 Ot 079.4 HUMAN PAPILLOMA VIRUS 06/13/2016 Ot 174.9 MALIGN NEOPL BREAST NOS 06/13/2016 Ot 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 06/13/2016 Ot 733.90 BONE CARTILAGE DIS NOS 06/13/2016 Ot V15.3 HX OF IRRADIATION 06/13/2016 Ot V45.71 ACQUIRED ABSENCE OF BREAST AND NIPPLE 06/13/2016 Ot V58.69 OTH MED,LT, CURRENT USE 06/13/2016 Ot V87.41 PERSONAL HISTORY OF ANTINEOPLASTIC CHEMO 06/13/2016 Ot 079.4 HUMAN PAPILLOMA VIRUS 06/13/2016 Ot 174.9 MALIGN NEOPL BREAST NOS 06/13/2016 Ot 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 06/13/2016 Ot 465.9 ACUTE URI NOS 06/13/2016 Ot 733.90 BONE CARTILAGE DIS NOS 06/13/2016 Ot V15.3 HX OF IRRADIATION 06/13/2016 Ot V45.71 ACQUIRED ABSENCE OF BREAST AND NIPPLE 06/13/2016 Ot V58.69 OTH MED,LT, CURRENT USE 06/13/2016 Ot V87.41 PERSONAL HISTORY OF ANTINEOPLASTIC CHEMO 06/13/2016 Ot V10.3 HX OF BREAST MALIGNANCY 06/13/2016 Ot V45.71 ACQUIRED ABSENCE OF BREAST AND NIPPLE 06/13/2016 Ot V76.11 SCRN MAMMO- HIGH RISK PT, MALIGNANT NEOPL 06/13/2016 Ot 174.9 MALIGN NEOPL BREAST NOS 06/13/2016 Ot 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 06/13/2016 Ot 305.1 TOBACCO USE DISORDER 06/13/2016 Ot 496 CHR AIRWAY OBSTRUCT NEC 06/13/2016 Ot 733.90 BONE CARTILAGE DIS NOS 06/13/2016 Ot V15.3 HX OF IRRADIATION 06/13/2016 Ot V45.71 ACQUIRED ABSENCE OF BREAST AND NIPPLE 06/13/2016 Ot V58.69 OTH MED,LT, CURRENT USE 06/13/2016 Ot V87.41 PERSONAL HISTORY OF ANTINEOPLASTIC CHEMO 06/13/2016 ABRAHAN AIKEN PHYSICAL INTEGRATION PRACTITIONER Ot 174.9 MALIGN NEOPL BREAST NOS 06/13/2016 ABRAHAN AIKEN PHYSICAL INTEGRATION PRACTITIONER Ot 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 06/13/2016 ABRAHAN AIKEN PHYSICAL INTEGRATION PRACTITIONER Ot 305.1 TOBACCO USE DISORDER 06/13/2016 ABRAHAN AIKEN PHYSICAL INTEGRATION PRACTITIONER Ot 496 CHR AIRWAY OBSTRUCT NEC 06/13/2016 ABRAHAN AIKEN PHYSICAL INTEGRATION PRACTITIONER Ot 733.90 BONE CARTILAGE DIS NOS 06/13/2016 ABRAHAN AIKEN PHYSICAL INTEGRATION PRACTITIONER Ot V15.3 HX OF IRRADIATION 06/13/2016 ABRAHAN AIKEN PHYSICAL INTEGRATION PRACTITIONER Ot V45.71 ACQUIRED ABSENCE OF BREAST AND NIPPLE 06/13/2016 ABRAHAN AIKEN PHYSICAL INTEGRATION PRACTITIONER Ot V58.69 OTH MED,LT,CURRENT USE 06/13/2016 ABRAHAN AIKEN PHYSICAL INTEGRATION PRACTITIONER Ot V87.41 PERSONAL HISTORY OF ANTINEOPLASTIC CHEMO 06/13/2016 ABRAHAN AIKEN PHYSICAL INTEGRATION PRACTITIONER Ot 733.90 BONE CARTILAGE DIS NOS 06/13/2016 ABRAHAN AIKEN PHYSICAL INTEGRATION PRACTITIONER Ot V76.12 OTH SCREEN MAMMO-MALIGN NEOPLASM OF MESERET 06/13/2016 ABRAHAN AIKEN PHYSICAL INTEGRATION PRACTITIONER Ot 174.9 MALIGN NEOPL BREAST NOS 06/13/2016 ABRAHAN AIKEN PHYSICAL INTEGRATION PRACTITIONER Ot 174.9 MALIGN NEOPL BREAST NOS 06/13/2016 ABRAHAN AIKEN PHYSICAL INTEGRATION PRACTITIONER Ot 723.1 CERVICALGIA 06/13/2016 AIKENABRAHAN Pete PHYSICAL INTEGRATION PRACTITIONER Ot 780.4 DIZZINESS AND GIDDINESS 06/13/2016 ABRAHAN AIKEN PHYSICAL INTEGRATION PRACTITIONER Ot 784.0 HEADACHE 06/13/2016 ABRAHAN AIKEN PHYSICAL INTEGRATION PRACTITIONER Ot 174.9 MALIGN NEOPL BREAST NOS 06/13/2016 ABRAHAN AIKEN PHYSICAL INTEGRATION PRACTITIONER Ot 723.1 CERVICALGIA 06/13/2016 AIKENABRAHAN Pete PHYSICAL INTEGRATION PRACTITIONER Ot 780.4 DIZZINESS AND GIDDINESS 06/13/2016 ABRAHAN AIKEN PHYSICAL INTEGRATION PRACTITIONER Ot 784.0 HEADACHE 06/13/2016 ABRAHAN AIKEN PHYSICAL INTEGRATION PRACTITIONER Ot 723.1 CERVICALGIA 06/13/2016 EDSONKAITLIN N Ot 174.9 MALIGN NEOPL BREAST NOS 06/13/2016 EDSONKAITLIN N Ot 174.9 MALIGN NEOPL BREAST NOS 06/13/2016 KAITLIN SANDHU N Ot 496 CHR AIRWAY OBSTRUCT NEC 06/13/2016 KAITLIN SANDHU N Ot 793.11 SOLITARY PULMONARY NODULE 06/13/2016 ALEXANDRIA DENNIS, ERON Blackman Ot 578.1 BLOOD IN STOOL 06/13/2016 ALEXANDRIA DENNIS, ERON Blackman Ot V72.84 EXAM PRE-OPERATIVE NOS 06/13/2016 ALEXANDRIA DENNIS, ERON Blackman Ot V76.51 SCREEN MAL NEOP-COLON 06/13/2016 NELLI ABRAHAN Pete PHYSICAL INTEGRATION PRACTITIONER Ot 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 06/13/2016 NELLI ABRAHAN Pete PHYSICAL INTEGRATION PRACTITIONER Ot C50.411 MALIG NEOPLM OF UPPER-OUTER QUADRANT OF 06/13/2016 ABRAHAN AIKEN Juan R PHYSICAL INTEGRATION PRACTITIONER Ot R91.1 SOLITARY PULMONARY NODULE 06/13/2016 NELLI ABRAHAN Pete PHYSICAL INTEGRATION PRACTITIONER Ot Z12.31 ENCNTR SCREEN MAMMOGRAM FOR MALIGNANT NE 06/13/2016 BINTA MORALES DO Ot C50.411 MALIG NEOPLM OF UPPER-OUTER QUADRANT OF 06/13/2016 BINTA MOARLES DO Ot J44.9 CHRONIC OBSTRUCTIVE PULMONARY DISEASE, U 06/13/2016 BINTA MORALES DO Ot R91.1 SOLITARY PULMONARY NODULE 06/13/2016 BINTA MORALES DO, Ot R94.2 ABNORMAL RESULTS OF PULMONARY FUNCTION S 06/13/2016 CARMEN DO, BINTA M Ot Z72.0 TOBACCO USE 06/13/2016 ROB DENNIS FAC, ALI FACP CCDS Ot E11.9 TYPE 2 DIABETES MELLITUS WITHOUT COMPLIC 06/13/2016 ROB DENNIS FAC, ALI FACP CCDS Ot I10 ESSENTIAL (PRIMARY) HYPERTENSION 06/13/2016 ROB DENNIS FAC, ALI FACP CCDS Ot J43.8 OTHER EMPHYSEMA 06/13/2016 ROB DENNIS [facility], ALI FACP CCDS Ot R07.89 OTHER CHEST PAIN 06/13/2016 ROB DENNIS [facility], ALI FACP CCDS Ot Z72.0 TOBACCO USE 06/13/2016 ALEXANDRIA DENNIS, ERON Blackman Ot R13.10 DYSPHAGIA, UNSPECIFIED 06/13/2016 ALEXANDRIA DENNIS, ERON Blackman Ot Z01.818 ENCOUNTER FOR OTHER PREPROCEDURAL EXAMIN 06/13/2016 KAITLIN SANDHU Ot C50.411 MALIG NEOPLM OF UPPER-OUTER QUADRANT OF 06/13/2016 KAITLIN SANDHU Ot E03.9 HYPOTHYROIDISM, UNSPECIFIED 06/13/2016 KAITLIN SANDHU Ot R91.1 SOLITARY PULMONARY NODULE 06/15/2016 MABEL ENGLAND APRN Ot C50.411 MALIG NEOPLM OF UPPER-OUTER QUADRANT OF 06/15/2016 MABEL ENGLAND APRN Ot J44.9 CHRONIC OBSTRUCTIVE PULMONARY DISEASE, U 06/15/2016 MABEL ENGLAND HAIR AND MAKEUP DESIGNER Ot K80.20 CALCULUS OF GALLBLADDER W/O CHOLECYSTITI 06/15/2016 MABEL ENGLAND APRN Ot R06.02 SHORTNESS OF BREATH 06/15/2016 MABEL ENGLAND HAIR AND MAKEUP DESIGNER Ot R91.8 OTHER NONSPECIFIC ABNORMAL FINDING OF DONNA 07/03/2016 KAITLIN SANDHU Ot Z12.31 ENCNTR SCREEN MAMMOGRAM FOR MALIGNANT NE 07/04/2016 KAITLIN SANDHU Ot Z12.31 ENCNTR SCREEN MAMMOGRAM FOR MALIGNANT NE 07/04/2016 KAITLIN SANDHU Ot Z12.31 ENCNTR SCREEN MAMMOGRAM FOR MALIGNANT NE 07/05/2016 MABEL ENGLAND APRN Ot C50.411 MALIG NEOPLM OF UPPER-OUTER QUADRANT OF 07/05/2016 MABEL ENGLAND HAIR AND MAKEUP DESIGNER Ot J44.9 CHRONIC OBSTRUCTIVE PULMONARY DISEASE, U 07/05/2016 MABEL ENGLAND HAIR AND MAKEUP DESIGNER Ot K80.20 CALCULUS OF GALLBLADDER W/O CHOLECYSTITI 07/05/2016 MABEL ENGLAND HAIR AND MAKEUP DESIGNER Ot R06.02 SHORTNESS OF BREATH 07/05/2016 MABEL ENGLAND HAIR AND MAKEUP DESIGNER Ot R91.8 OTHER NONSPECIFIC ABNORMAL FINDING OF DONNA 07/20/2016 MABEL ENGLAND HAIR AND MAKEUP DESIGNER Ot C50.411 MALIG NEOPLM OF UPPER-OUTER QUADRANT OF 07/20/2016 MABEL ENGLAND HAIR AND MAKEUP DESIGNER Ot J44.9 CHRONIC OBSTRUCTIVE PULMONARY DISEASE, U 07/20/2016 MABEL ENGLAND HAIR AND MAKEUP DESIGNER Ot K80.20 CALCULUS OF GALLBLADDER W/O CHOLECYSTITI 07/20/2016 MABEL ENGLAND APRN Ot R06.02 SHORTNESS OF BREATH 07/20/2016 MABEL ENGLAND HAIR AND MAKEUP DESIGNER Ot R91.8 OTHER NONSPECIFIC ABNORMAL FINDING OF DONNA 07/24/2016 KAITLIN SANDHU Ot Z12.31 ENCNTR SCREEN MAMMOGRAM FOR MALIGNANT NE 08/02/2016 KAITLIN SANDHU Ot Z12.31 ENCNTR SCREEN MAMMOGRAM FOR MALIGNANT NE 10/31/2016 BAIMA, CYNTHIA L PHYSICAL INTEGRATION PRACTITIONER Ot R00.0 TACHYCARDIA, UNSPECIFIED 10/31/2016 BAIMA, CYNTHIA L PHYSICAL INTEGRATION PRACTITIONER Ot R00.2 PALPITATIONS 10/31/2016 BAIMA, CYNTHIA L PHYSICAL INTEGRATION PRACTITIONER Ot R06.02 SHORTNESS OF BREATH 10/31/2016 BAIMA, CYNTHIA L PHYSICAL INTEGRATION PRACTITIONER Ot Z72.0 TOBACCO USE 11/26/2016 BAIMA, CYNTHIA L PHYSICAL INTEGRATION PRACTITIONER Ot R00.0 TACHYCARDIA, UNSPECIFIED 11/26/2016 BAIMA, CYNTHIA L PHYSICAL INTEGRATION PRACTITIONER Ot R00.2 PALPITATIONS 11/26/2016 BAIMA, CYNTHIA L PHYSICAL INTEGRATION PRACTITIONER Ot R06.02 SHORTNESS OF BREATH 11/26/2016 BAIMA, CYNTHIA L PHYSICAL INTEGRATION PRACTITIONER Ot Z72.0 TOBACCO USE 01/25/2017 KAITLIN SANDHU Ot C50.411 MALIG NEOPLM OF UPPER-OUTER QUADRANT OF 01/25/2017 KAITLIN SANDHU Ot E03.9 HYPOTHYROIDISM, UNSPECIFIED 01/25/2017 KAITLIN SANDHU Ot R91.1 SOLITARY PULMONARY NODULE 01/29/2017 KAITLIN SANDHU Ot C50.411 MALIG NEOPLM OF UPPER-OUTER QUADRANT OF 01/29/2017 KAITLIN SANDHU [employer] Ot E03.9 HYPOTHYROIDISM, UNSPECIFIED 01/29/2017 KAITLIN SANDHU [employer] Ot R91.1 SOLITARY PULMONARY NODULE 01/29/2017 KAITLIN SANDHU [employer] Ot C50.411 MALIG NEOPLM OF UPPER-OUTER QUADRANT OF 01/29/2017 KAITLIN SANDHU [employer] Ot E03.9 HYPOTHYROIDISM, UNSPECIFIED 01/29/2017 EDSON MEEKKATHERINE [employer] Ot R91.1 SOLITARY PULMONARY NODULE 01/31/2017 KAITLIN SANDHU [employer] Ot E03.9 HYPOTHYROIDISM, UNSPECIFIED 01/31/2017 KAITLIN SANDHU N Ot F17.210 NICOTINE DEPENDENCE, CIGARETTES, UNCOMPL 01/31/2017 EDSON MEEKKATHERINE [employer] Ot I10 ESSENTIAL (PRIMARY) HYPERTENSION 01/31/2017 EDSON KAITLIN De Luna Ot J44.9 CHRONIC OBSTRUCTIVE PULMONARY DISEASE, U 01/31/2017 KAITLIN SANDHU [employer] Ot M85.80 OTH DISRD OF BONE DENSITY AND STRUCTURE, 01/31/2017 EDSONKAITLIN IVEY [employer] Ot R91.8 OTHER NONSPECIFIC ABNORMAL FINDING OF DONNA 01/31/2017 EDSON MEEKKATHERINE N Ot Z08 ENCNTR FOR FOLLOW-UP EXAM AFTER TRTMT FO 01/31/2017 KAITLIN SANDHU [employer] Ot 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 01/31/2017 EDSON MEEKKATHERINE N Ot Z85.3 PERSONAL HISTORY OF MALIGNANT NEOPLASM O 01/31/2017 EDSON, MEEKKATHERINE N Ot Z90.11 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 01/31/2017 EDSONKAITLIN Ot Z92.21 PERSONAL HISTORY OF ANTINEOPLASTIC CHEMO 01/31/2017 EDSON, KAITLIN N Ot Z92.3 PERSONAL HISTORY OF IRRADIATION 03/08/2017 EDSON MEEKKATHERINE [employer] Ot E03.9 HYPOTHYROIDISM, UNSPECIFIED 03/08/2017 EDSON, MEEKKATHERINE [employer] Ot F17.210 NICOTINE DEPENDENCE, CIGARETTES, UNCOMPL 03/08/2017 EDSON KAITLIN N Ot I10 ESSENTIAL (PRIMARY) HYPERTENSION 03/08/2017 EDSON, KAITLIN De Luna Ot J44.9 CHRONIC OBSTRUCTIVE PULMONARY DISEASE, U 03/08/2017 EDSON, KAITLIN De Luna Ot M85.80 OTH DISRD OF BONE DENSITY AND STRUCTURE, 03/08/2017 KAITLIN SANDHU [employer] Ot R91.8 OTHER NONSPECIFIC ABNORMAL FINDING OF DONNA 03/08/2017 KAITLIN SANDHU [employer] Ot Z08 ENCNTR FOR FOLLOW-UP EXAM AFTER TRTMT FO 03/08/2017 KAITLIN SANDHU [employer] Ot 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 03/08/2017 KAITLIN SANDHU [employer] Ot Z85.3 PERSONAL HISTORY OF MALIGNANT NEOPLASM O 03/08/2017 KAITLIN SANDHU [employer] Ot Z90.11 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 03/08/2017 KAITLIN SANDHU [employer] Ot Z92.21 PERSONAL HISTORY OF ANTINEOPLASTIC CHEMO 03/08/2017 KAITLIN SANDHU N Ot Z92.3 PERSONAL HISTORY OF IRRADIATION 03/08/2017 CYNTHIA SOLO PHYSICAL INTEGRATION PRACTITIONER Ot I10 ESSENTIAL (PRIMARY) HYPERTENSION 03/08/2017 CYNTHIA SOLO PHYSICAL INTEGRATION PRACTITIONER Ot I35.1 NONRHEUMATIC AORTIC (VALVE) INSUFFICIENC 03/08/2017 CYNTHIA SOLO PHYSICAL INTEGRATION PRACTITIONER Ot R00.2 PALPITATIONS 03/08/2017 CYNTHIA SOLO PHYSICAL INTEGRATION PRACTITIONER Ot R06.02 SHORTNESS OF BREATH 03/13/2017 KAITLIN SANDHU [employer] Ot E03.9 HYPOTHYROIDISM, UNSPECIFIED 03/13/2017 KAITLIN SANDHU [employer] Ot F17.210 NICOTINE DEPENDENCE, CIGARETTES, UNCOMPL 03/13/2017 KAITLIN SANDHU [employer] Ot I10 ESSENTIAL (PRIMARY) HYPERTENSION 03/13/2017 KAITLIN SANDHU [employer] Ot J44.9 CHRONIC OBSTRUCTIVE PULMONARY DISEASE, U 03/13/2017 KAITLIN SANDHU [employer] Ot M85.80 OTH DISRD OF BONE DENSITY AND STRUCTURE, 03/13/2017 KAITLIN SANDHU [employer] Ot R91.8 OTHER NONSPECIFIC ABNORMAL FINDING OF DONNA 03/13/2017 KAITLIN SANDHU [employer] Ot Z08 ENCNTR FOR FOLLOW-UP EXAM AFTER TRTMT FO 03/13/2017 KAITLIN SANDHU [employer] Ot 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 03/13/2017 KAITLIN SANDHU N Ot Z85.3 PERSONAL HISTORY OF MALIGNANT NEOPLASM O 03/13/2017 EDSONKAITLIN IVEY N Ot Z90.11 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 03/13/2017 EDSON, MEEKKATHERINE [employer] Ot Z92.21 PERSONAL HISTORY OF ANTINEOPLASTIC CHEMO 03/13/2017 KAITLIN SANDHU [employer] Ot Z92.3 PERSONAL HISTORY OF IRRADIATION 03/14/2017 KAITLIN SANDHU [employer] Ot M79.9 SOFT TISSUE DISORDER, UNSPECIFIED 03/14/2017 KAITLIN SANDHU [employer] Ot R93.7 ABNORMAL FINDINGS ON DIAGNOSTIC IMAGING 03/14/2017 KAITLIN SANDHU [employer] Ot Z85.3 PERSONAL HISTORY OF MALIGNANT NEOPLASM O 03/15/2017 ABRAHAN AIKEN PHYSICAL INTEGRATION PRACTITIONER Ot C50.411 MALIG NEOPLM OF UPPER-OUTER QUADRANT OF 03/16/2017 EDSON MEEKKATHERINE [employer] Ot C79.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 03/16/2017 KAITLIN SANDHU [employer] Ot E03.9 HYPOTHYROIDISM, UNSPECIFIED 03/16/2017 EDSON, KAITLIN [place] Ot F17.210 NICOTINE DEPENDENCE, CIGARETTES, UNCOMPL 03/16/2017 EDSON, KAITLIN [place] Ot I10 ESSENTIAL (PRIMARY) HYPERTENSION 03/16/2017 ESDON, MEEKKATHERINE [employer] Ot J44.9 CHRONIC OBSTRUCTIVE PULMONARY DISEASE, U 03/16/2017 EDSON, MEEKKATHERINE [employer] Ot M85.80 OTH DISRD OF BONE DENSITY AND STRUCTURE, 03/16/2017 KAITLIN SANDHU [employer] Ot R91.8 OTHER NONSPECIFIC ABNORMAL FINDING OF DONNA 03/16/2017 EDSON MEEKKATHERINE [employer] Ot Z08 ENCNTR FOR FOLLOW-UP EXAM AFTER TRTMT FO 03/16/2017 KAITLIN SANDHU [employer] Ot 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 03/16/2017 KAITLIN SANDHU [employer] Ot Z85.3 PERSONAL HISTORY OF MALIGNANT NEOPLASM O 03/16/2017 EDSON, MEEKKATHERINE [employer] Ot Z90.11 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 03/16/2017 EDSON MEEKKATHERINE [employer] Ot Z92.21 PERSONAL HISTORY OF ANTINEOPLASTIC CHEMO 03/16/2017 KAITLIN SANDHU [employer] Ot Z92.3 PERSONAL HISTORY OF IRRADIATION 03/19/2017 EDSON MEEKKATHERINE [employer] Ot M79.9 SOFT TISSUE DISORDER, UNSPECIFIED 03/19/2017 KAITLIN SANDHU [employer] Ot R93.7 ABNORMAL FINDINGS ON DIAGNOSTIC IMAGING 03/19/2017 EDSON MEEKKATHERINE [employer] Ot Z85.3 PERSONAL HISTORY OF MALIGNANT NEOPLASM O 03/21/2017 CYNTHIA SOLO PHYSICAL INTEGRATION PRACTITIONER Ot I10 ESSENTIAL (PRIMARY) HYPERTENSION 03/21/2017 CYNTHIA SOLO PHYSICAL INTEGRATION PRACTITIONER Ot I35.1 NONRHEUMATIC AORTIC (VALVE) INSUFFICIENC 03/21/2017 CYNTHIA SOLO PHYSICAL INTEGRATION PRACTITIONER Ot R00.2 PALPITATIONS 03/21/2017 CHRISTIANCLEVE CYNTHIA Fuentes PHYSICAL INTEGRATION PRACTITIONER Ot R06.02 SHORTNESS OF BREATH 03/28/2017 ABRAHAN AIKENP Ot C50.411 MALIG NEOPLM OF UPPER-OUTER QUADRANT OF 04/02/2017 EDSONKAITLIN N Ot M79.9 SOFT TISSUE DISORDER, UNSPECIFIED 04/02/2017 EDSON, KAITLIN N Ot R93.7 ABNORMAL FINDINGS ON DIAGNOSTIC IMAGING 04/02/2017 EDSONKAITLIN N Ot Z85.3 PERSONAL HISTORY OF MALIGNANT NEOPLASM O 04/11/2017 KAITLIN SANDHU N Ot M79.9 SOFT TISSUE DISORDER, UNSPECIFIED 04/11/2017 EDSONKAITLIN N Ot R93.7 ABNORMAL FINDINGS ON DIAGNOSTIC IMAGING 04/11/2017 KAITLIN SANDHU N Ot Z85.3 PERSONAL HISTORY OF MALIGNANT NEOPLASM O 04/18/2017 ABRAHAN AIKENP Ot C50.411 MALIG NEOPLM OF UPPER-OUTER QUADRANT OF 04/22/2017 EDSONKAITLIN N Ot C79.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 04/22/2017 KAITLIN SANDHU Ot E03.9 HYPOTHYROIDISM, UNSPECIFIED 04/22/2017 KAITLIN SANDHU Ot F17.210 NICOTINE DEPENDENCE, CIGARETTES, UNCOMPL 04/22/2017 KAITLIN SANDHU N Ot I10 ESSENTIAL (PRIMARY) HYPERTENSION 04/22/2017 KAITLIN SANDHU Ot J44.9 CHRONIC OBSTRUCTIVE PULMONARY DISEASE, U 04/22/2017 KAITLIN SANDHU Ot R91.8 OTHER NONSPECIFIC ABNORMAL FINDING OF DONNA 04/22/2017 KAITLIN SANDHU N Ot Z51.0 ENCOUNTER FOR ANTINEOPLASTIC RADIATION T 04/22/2017 KAITLIN SANDHU N Ot Z79.899 OTHER [facility] (CURRENT) DRUG THERAPY 04/22/2017 KAITLIN SANDHU N Ot Z85.3 PERSONAL HISTORY OF MALIGNANT NEOPLASM O 04/22/2017 KAITLIN SANDHU N Ot Z90.11 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 04/22/2017 KAITLIN SANDHU N Ot Z92.21 PERSONAL HISTORY OF ANTINEOPLASTIC CHEMO 05/13/2017 ABRAHAN AIKEN PHYSICAL INTEGRATION PRACTITIONER Ot C50.411 MALIG NEOPLM OF UPPER-OUTER QUADRANT OF 05/16/2017 KAITLIN SANDHU N Ot C79.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 05/16/2017 KAITLIN SANDHU N Ot E03.9 HYPOTHYROIDISM, UNSPECIFIED 05/16/2017 KAITLIN SANDHU N Ot F17.210 NICOTINE DEPENDENCE, CIGARETTES, UNCOMPL 05/16/2017 KAITLIN SANDHU N Ot I10 ESSENTIAL (PRIMARY) HYPERTENSION 05/16/2017 KAITLIN SANDHU N Ot J44.9 CHRONIC OBSTRUCTIVE PULMONARY DISEASE, U 05/16/2017 KAITLIN SANDHU N Ot R91.8 OTHER NONSPECIFIC ABNORMAL FINDING OF DONNA 05/16/2017 KAITLIN SANDHU N Ot Z51.0 ENCOUNTER FOR ANTINEOPLASTIC RADIATION T 05/16/2017 KAITLIN SANDHU N Ot 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 05/16/2017 KAITLIN SANDHU N Ot Z85.3 PERSONAL HISTORY OF MALIGNANT NEOPLASM O 05/16/2017 EDSONKAITLIN N Ot Z90.11 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 05/16/2017 EDSONKAITLIN N Ot Z92.21 PERSONAL HISTORY OF ANTINEOPLASTIC CHEMO 05/30/2017 KAITLIN SANDHU N Ot C79.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 05/30/2017 KAITLIN SANDHU N Ot E03.9 HYPOTHYROIDISM, UNSPECIFIED 05/30/2017 KAITLIN SANDHU N Ot F17.210 NICOTINE DEPENDENCE, CIGARETTES, UNCOMPL 05/30/2017 KAITLIN SANDHU N Ot I10 ESSENTIAL (PRIMARY) HYPERTENSION 05/30/2017 KAITLIN SANDHU N Ot J44.9 CHRONIC OBSTRUCTIVE PULMONARY DISEASE, U 05/30/2017 EDSONKAITLIN N Ot R91.8 OTHER NONSPECIFIC ABNORMAL FINDING OF DONNA 05/30/2017 KAITLIN SANDHU N Ot Z51.0 ENCOUNTER FOR ANTINEOPLASTIC RADIATION T 05/30/2017 EDSONKAITLIN N Ot 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 05/30/2017 EDSONMEEKAN N Ot Z85.3 PERSONAL HISTORY OF MALIGNANT NEOPLASM O 05/30/2017 EDSONKAITLIN N Ot Z90.11 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 05/30/2017 EDSONKAITLIN N Ot Z92.21 PERSONAL HISTORY OF ANTINEOPLASTIC CHEMO 06/17/2017 KAITLIN SANDHU N Ot C79.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 06/17/2017 KAITLIN SANDHU N Ot E03.9 HYPOTHYROIDISM, UNSPECIFIED 06/17/2017 KAITLIN SANDHU N Ot F17.210 NICOTINE DEPENDENCE, CIGARETTES, UNCOMPL 06/17/2017 KAITLIN SANDHU N Ot I10 ESSENTIAL (PRIMARY) HYPERTENSION 06/17/2017 EDSON MEEKKATHERINE N Ot J44.9 CHRONIC OBSTRUCTIVE PULMONARY DISEASE, U 06/17/2017 KAITLIN SANDHU N Ot R91.8 OTHER NONSPECIFIC ABNORMAL FINDING OF DNONA 06/17/2017 KAITLIN SANDHU N Ot Z51.0 ENCOUNTER FOR ANTINEOPLASTIC RADIATION T 06/17/2017 EDSON KAITLIN N Ot 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 06/17/2017 EDSON MEEKKATHERINE N Ot Z85.3 PERSONAL HISTORY OF MALIGNANT NEOPLASM O 06/17/2017 KAITLIN SANDHU N Ot Z90.11 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 06/17/2017 KAITLIN SANDHU N Ot Z92.21 PERSONAL HISTORY OF ANTINEOPLASTIC CHEMO 06/19/2017 KAITLIN SANDHU N Ot C50.411 MALIG NEOPLM OF UPPER-OUTER QUADRANT OF 06/19/2017 KAITLIN SANDHU N Ot C79.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 06/19/2017 KAITLIN SANDHU N Ot G45.9 TRANSIENT CEREBRAL ISCHEMIC ATTACK, UNSP 06/19/2017 KAITLIN SANDHU N Ot 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 06/24/2017 ABRAHAN AIKEN PHYSICAL INTEGRATION PRACTITIONER Ot C50.411 MALIG NEOPLM OF UPPER-OUTER QUADRANT OF 06/26/2017 KAITLIN SANDHU N Ot C79.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 06/26/2017 KAITLIN SANDHU N Ot E03.9 HYPOTHYROIDISM, UNSPECIFIED 06/26/2017 KAITLIN SANDHU N Ot F17.210 NICOTINE DEPENDENCE, CIGARETTES, UNCOMPL 06/26/2017 KAITLIN SANDHU N Ot I10 ESSENTIAL (PRIMARY) HYPERTENSION 06/26/2017 KAITLIN SANDHU N Ot J44.9 CHRONIC OBSTRUCTIVE PULMONARY DISEASE, U 06/26/2017 KAITLIN SANDHU N Ot R91.8 OTHER NONSPECIFIC ABNORMAL FINDING OF DONNA 06/26/2017 KAITLIN SANDHU N Ot Z51.0 ENCOUNTER FOR ANTINEOPLASTIC RADIATION T 06/26/2017 EDSON KAITLIN N Ot 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 06/26/2017 EDSONKAITLIN Ot Z85.3 PERSONAL HISTORY OF MALIGNANT NEOPLASM O 06/26/2017 EDSON KAITLIN De Luna Ot Z90.11 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 06/26/2017 EDSONKAITLIN Ot Z92.21 PERSONAL HISTORY OF ANTINEOPLASTIC CHEMO 06/27/2017 KAITLIN SANDHU Ot C50.411 MALIG NEOPLM OF UPPER-OUTER QUADRANT OF 06/27/2017 EDSONKAITLIN Ot C79.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 06/27/2017 KAITLIN SANDHU Ot G45.9 TRANSIENT CEREBRAL ISCHEMIC ATTACK, UNSP 06/27/2017 EDSONKAITLIN Ot 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 06/28/2017 ABRAHAN AIKEN PHYSICAL INTEGRATION PRACTITIONER Ot Z12.31 ENCNTR SCREEN MAMMOGRAM FOR MALIGNANT NE 07/24/2017 KAITLIN SANDHU Ot C79.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 07/24/2017 EDSONKAITLIN Ot E03.9 HYPOTHYROIDISM, UNSPECIFIED 07/24/2017 EDSONKAITLIN Ot F17.210 NICOTINE DEPENDENCE, CIGARETTES, UNCOMPL 07/24/2017 KAITLIN SANDHU Ot I10 ESSENTIAL (PRIMARY) HYPERTENSION 07/24/2017 KAITLIN SANDHU Ot J44.9 CHRONIC OBSTRUCTIVE PULMONARY DISEASE, U 07/24/2017 EDSONKAITLIN Ot R91.8 OTHER NONSPECIFIC ABNORMAL FINDING OF DONNA 07/24/2017 KAITLIN SANDHU Ot Z51.0 ENCOUNTER FOR ANTINEOPLASTIC RADIATION T 07/24/2017 EDSONKAITLIN Ot Z79.899 OTHER [facility] (CURRENT) DRUG THERAPY 07/24/2017 EDSONKAITLIN Ot Z85.3 PERSONAL HISTORY OF MALIGNANT NEOPLASM O 07/24/2017 KAITLIN SANDHU Ot Z90.11 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 07/24/2017 KAITLIN SANDHU Ot Z92.21 PERSONAL HISTORY OF ANTINEOPLASTIC CHEMO 08/12/2017 KAITLIN SANDHU Ot C79.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 08/12/2017 KAITLIN SANDHU Ot E03.9 HYPOTHYROIDISM, UNSPECIFIED 08/12/2017 KAITLIN SANDHU Ot F17.210 NICOTINE DEPENDENCE, CIGARETTES, UNCOMPL 08/12/2017 KAITLIN SANDHU Ot I10 ESSENTIAL (PRIMARY) HYPERTENSION 08/12/2017 KAITLIN SANDHU Ot J44.9 CHRONIC OBSTRUCTIVE PULMONARY DISEASE, U 08/12/2017 KAITLIN SANDHU Ot R91.8 OTHER NONSPECIFIC ABNORMAL FINDING OF DONNA 08/12/2017 KAITLIN SANDHU Ot Z79.899 OTHER [facility] (CURRENT) DRUG THERAPY 08/12/2017 KAITLIN SANDHU Ot Z85.3 PERSONAL HISTORY OF MALIGNANT NEOPLASM O 08/12/2017 KAITLIN SANDHU Ot Z90.11 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 08/12/2017 KAITLIN SANDHU Ot Z92.21 PERSONAL HISTORY OF ANTINEOPLASTIC CHEMO Procedures There is no data. Results There is no data. Encounters ACCT No. Visit Date/Time Discharge Status Pt. Type Provider Facility Loc./Unit Complaint [id number] 01/24/2015 21:42:30 01/24/2015 23:59:59 CLS Outpatient Julissa Sims [id number] 09/27/2014 14:32:38 09/27/2014 23:59:59 CLS Outpatient Julissa Sims [id number] 07/28/2014 10:45:53 07/28/2014 23:59:59 CLS Outpatient Julissa Sims [id number] 06/02/2014 11:00:07 06/02/2014 23:59:59 CLS Outpatient Julissa Sims [id number] 03/12/2014 10:32:00 03/12/2014 23:59:59 CLS Outpatient Julissa Sims [id number] 01/06/2014 10:50:51 01/06/2014 23:59:59 MALLY Outpatient Julissa Sims [id number] 11/11/2013 11:13:10 11/11/2013 23:59:59 MALLY Outpatient Julissa Sims [id number] 07/29/2013 16:05:05 07/29/2013 23:59:59 CLS Outpatient Julissa Sims [id number] 06/24/2013 14:48:18 06/24/2013 23:59:59 CLS Outpatient Julissa Sims [id number] 06/18/2013 08:51:04 06/18/2013 23:59:59 CLS Outpatient Fran Varma [id number] 07/30/2017 14:01:00 07/30/2017 23:59:59 CLS Outpatient KAITLIN SANDHU [facility] ONC PORT FLUSH [id number] 07/05/2017 11:00:00 07/05/2017 23:59:59 CLS Preadmit ABRAHAN AIKEN PHYSICAL INTEGRATION PRACTITIONER [facility] RAD Z12.31 [id number] 05/27/2017 08:47:00 06/17/2017 00:01:00 DIS Outpatient KAITLIN SANDHU [facility] ONC PORT FLUSH [id number] 05/29/2017 11:39:00 05/29/2017 23:59:59 CLS Outpatient KAITLIN SANDHU [facility] RAD TIA G45.9 [id number] 05/27/2017 12:33:00 05/27/2017 23:59:59 CLS Outpatient KAITLIN SANDHU [facility] RAD BREAST CA [id number] 03/14/2017 10:12:00 03/16/2017 00:01:00 DIS Outpatient KAITLIN SANDHU [facility] ONC PORT FLUSH [id number] 03/13/2017 10:21:00 03/13/2017 23:59:59 CLS Outpatient KAITLIN SANDHU [facility] RAD PAIN IN RT HIP [id number] 02/12/2017 08:48:00 02/12/2017 23:59:59 CLS Outpatient ABRAHAN AIKEN PHYSICAL INTEGRATION PRACTITIONER [facility] CARD BREAST CA [id number] 02/12/2017 08:45:00 02/12/2017 23:59:59 CLS Outpatient CYNTHIA SOLO PHYSICAL INTEGRATION PRACTITIONER [facility] CARD AORTIC VALVE REGURGITATION I35.1 [id number] 02/07/2017 12:15:00 02/07/2017 23:59:59 CLS Preadmit ABRAHAN AIKEN PHYSICAL INTEGRATION PRACTITIONER [facility] CARD BREAST CA [id number] 12/17/2016 09:45:00 12/17/2016 23:59:59 CLS Preadmit MABEL ENGLAND APRN [facility] RAD ABNORMAL PET SCAN, COPD,LUNG NODULE [id number] 10/30/2016 09:46:00 10/30/2016 23:59:59 CLS Outpatient CYNTHIA SOLO [facility] CARD R00.2,R06.02,R00.0 [id number] 07/03/2016 09:35:00 07/03/2016 23:59:59 CLS Outpatient KAITLIN SANDHU [facility] RAD SCREENING [id number] 06/14/2016 13:20:00 06/14/2016 23:59:59 CLS Outpatient MABEL ENGLAND APRN [facility] RAD COPD,SOB,LUNG NODULE [id number] 12/26/2015 08:59:00 03/25/2016 00:01:00 DIS Outpatient KAITLIN SANDHU [facility] ONC PORT FLUSH [id number] 01/03/2016 11:22:00 01/03/2016 23:59:59 CLS Outpatient ROB DENNIS FACC, BRENDA FERNANDO CCDS [facility] CARD CHEST DISCOMFORT,COPD,HTN,TOBACCO USER [id number] 12/26/2015 10:42:00 12/26/2015 23:59:59 CLS Preadmit KAITLIN SANDHU [facility] ONC [id number] 12/15/2015 06:11:00 12/15/2015 09:55:00 DIS Outpatient ERON IBRAHIM MD [facility] SDC DYSPHAGIA [id number] 12/14/2015 05:49:00 12/14/2015 23:59:59 CLS Outpatient ERON IBRAHIM MD [facility] PREOP DYSPHAGIA [id number] 11/25/2015 10:00:00 11/25/2015 10:00:00 CAN Preadmit CARI OSBORNE MD [facility] PREOP [id number] 10/10/2015 14:12:00 10/10/2015 23:59:59 CLS Outpatient BINTA MORALES DO [facility] RT COPD,ABNORMAL PET, LUNG NODULE [id number] 07/01/2015 10:47:00 07/01/2015 23:59:59 CLS Outpatient ABRAHAN AIKEN PHYSICAL INTEGRATION PRACTITIONER [facility] RAD BREAST CA,LUNG NODULE [id number] 06/27/2015 08:47:00 06/27/2015 23:59:59 CLS Outpatient ABRAHAN AIKEN PHYSICAL INTEGRATION PRACTITIONER [facility] ONC SCREENING [id number] 12/20/2014 11:34:00 12/20/2014 16:00:00 DIS Outpatient ERON IBRAHIM MD [facility] SDC SCREENING, HEMATOCHEZIA [id number] 12/16/2014 06:36:00 12/16/2014 23:59:59 CLS Outpatient ERON IBRAHIM MD [facility] PREOP RECTAL BLEEDING [id number] 12/15/2014 10:00:00 12/15/2014 23:59:59 CLS Preadmit KAITLIN SANDHU [facility] RAD SCREENING [id number] 12/02/2014 13:49:00 12/08/2014 00:01:00 DIS Outpatient KAITLIN SANDHU [facility] ONC PORT FLUSH [id number] 11/29/2014 11:10:00 11/29/2014 23:59:59 CLS Outpatient KAITLIN SANDHU [facility] CARD ABNORMAL PET, LUNG NODULE [id number] 09/07/2014 10:55:00 09/07/2014 23:59:59 CLS Outpatient KAITLIN SANDHU [facility] RAD BREAST CANCER WITH NEW PULMONARY NODULES [id number] 12/03/2013 07:58:00 12/03/2013 23:59:59 CLS Outpatient ABRAHAN AIKEN PHYSICAL INTEGRATION PRACTITIONER [facility] RAD CERVICAL PAIN ABNORMAL PET [id number] 11/24/2013 14:56:00 11/24/2013 23:59:59 CLS Outpatient ABRAHAN AIKEN PHYSICAL INTEGRATION PRACTITIONER [facility] ONC [id number] 11/18/2013 08:03:00 11/18/2013 23:59:59 CLS Outpatient ABRAHAN AIKEN PHYSICAL INTEGRATION PRACTITIONER [facility] RAD BREAST CA, DIZZINESS, NECK PAIN [id number] 11/17/2013 10:54:00 11/17/2013 23:59:59 CLS Outpatient NELLI ABRAHAN Juan R PHYSICAL INTEGRATION PRACTITIONER [facility] RAD BREAST CA,DIZZINESS, NECK PAIN [id number] 11/12/2013 10:29:00 11/12/2013 23:59:59 CLS Outpatient ABRAHAN AIKEN PHYSICAL INTEGRATION PRACTITIONER [facility] RAD BREAST CA,OSTEOPENIA, SCREENING [id number] 10/30/2013 14:29:00 10/30/2013 23:59:59 CLS Outpatient ABRAHAN AIKEN PHYSICAL INTEGRATION PRACTITIONER [facility] ONC [id number] 02/17/2013 11:16:00 05/18/2013 00:01:00 DIS Outpatient KAITLIN SANDHU [facility] ONC PORT FLUSH [id number] 08/20/2017 07:03:00 ACT Outpatient CYNTHIA SOLO PHYSICAL INTEGRATION PRACTITIONER [facility] CATH CHEST DISCOMFORT,COPD [id number] 11/29/2014 11:55:00 Document Registration [id number] 04/17/2012 10:48:00 Document Registration [id number] 02/15/2012 09:30:00 Document Registration [id number] 08/23/2011 13:07:00 Document Registration [id number] 02/22/2011 14:57:00 Document Registration [id number] 02/12/2011 12:54:00 Document Registration [id number] 11/23/2010 12:35:00 Document Registration [id number] 05/04/2010 10:08:00 Document Registration [id number] 04/27/2010 10:38:00 Document Registration [id number] 02/06/2010 13:29:00 Document Registration [id number] 01/25/2010 09:06:00 Document Registration [id number] 10/19/2009 09:52:00 Document Registration [id number] 09/08/2009 07:38:00 Document Registration [id number] 08/29/2009 10:00:00 Document Registration [id number] 07/20/2009 09:26:00 Document Registration [id number] 05/30/2009 00:00:00 Document Registration [id number] 04/27/2009 00:00:00 Document Registration [id number] 04/20/2009 08:42:00 Document Registration [id number] 02/28/2009 14:00:00 Document Registration [id number] 01/20/2009 09:34:00 Document Registration [id number] 10/27/2008 09:00:00 Document Registration [id number] 07/22/2008 10:17:00 Document Registration [id number] 08/29/2006 14:02:00 Document Registration
[2017-08-20] MEDS ORDERED: NS IV 1000 ML 1,000 ML IV SCH ×2 (07:15→11:41)
[2017-08-20 07:34] LABS: HEMOGLOBIN 13.5 G/DL (11.5-16.0); MEAN PLATELET VOLUME 10.5 FL (7.4-10.4); RED BLOOD COUNT 4.4 10^6/uL (4.35-5.85); RED CELL DISTRIBUTION WIDTH 17.4 % (10.0-14.5); WHITE BLOOD COUNT 6.4 10^3/uL (4.3-11.0)
[2017-08-20] MEDS ORDERED: INFLUENZA TRIvalent 2017-2018 0.5 ML/45 MCG SYR IM ONE (07:45)
[2017-08-20 07:48] LABS: INR 0.9 (0.8-1.4); PROTHROMBIN TIME PATIENT 12.3 SEC (12.2-14.7)
[2017-08-20 07:55] LABS: ALANINE AMINOTRANSFERASE 23 U/L (0-55); ALBUMIN 3.8 GM/DL (3.2-4.5); ALKALINE PHOSPHATASE 128 U/L (40-136); BILIRUBIN,TOTAL 0.2 MG/DL (0.1-1.0); BUN/CREATININE RATIO 13; CALCIUM 9.7 MG/DL (8.5-10.1); CARBON DIOXIDE 24 MMOL/L (21-32); CHLORIDE 108 MMOL/L (98-107); CHOLESTEROL 189 MG/DL (< 200); CREATININE SERUM 0.78 MG/DL (0.60-1.30); GFR ESTIMATED > 60; GLUCOSE 120 MG/DL (70-105); HDL CHOLESTEROL 51 MG/DL (40-60); POTASSIUM 3.9 MMOL/L (3.6-5.0); SODIUM 142 MMOL/L (135-145); TOTAL PROTEIN 6.7 GM/DL (6.4-8.2); TRIGLYCERIDES 241 MG/DL (<150); VLDL CHOLESTEROL 48 MG/DL (5-40)
[2017-08-20] MEDS ORDERED: methylPREDNISolone 125 MG (Solu-MEDROL) VIAL ONE (07:56)
[2017-08-20] MEDS ORDERED: OXYC5CAP18 PO (08:48)
[2017-08-20] MEDS ORDERED: OXYC10TA85 PO (08:48)
[2017-08-20] MEDS ORDERED: CLOP75TA69 PO (08:49)
[2017-08-20] MEDS ORDERED: ASPI-586 PO (08:49)
[2017-08-20] MEDS ORDERED: PANT40SU PO (08:50)
[2017-08-20] MEDS ORDERED: LETR2.5T5 PO (08:50)
[2017-08-20] MEDS ORDERED: PANT40TA3 PO (08:51)
[2017-08-20] MEDS ORDERED: CYCL10TA9 PO (08:51)
[2017-08-20] MEDS ORDERED: DOXE100C4 PO (08:52)
[2017-08-20] MEDS ORDERED: DEXL30CA2 PO (08:53)
[2017-08-20] MEDS ORDERED: CHOL10007 PO (08:53)
[2017-08-20] MEDS ORDERED: PRAV40TA2 PO (08:54)
[2017-08-20] MEDS ORDERED: RT-ALBUINH IH (08:55)
[2017-08-20] MEDS ORDERED: LEVO50TA6 PO (08:55)
[2017-08-20] MEDS ORDERED: DICL100G18 TP (08:57)
[2017-08-20] MEDS ORDERED: MIDAZOLAM 5 MG/5 ML (VERSED) VIAL ONE (10:12)
[2017-08-20] MEDS ORDERED: diphenhydrAMINE 50 MG/ML INJ (BENADRYL) ONE (10:13)
[2017-08-20] MEDS ORDERED: fentaNYL INJECTION 100 MCG/2 ML AMP ONE (10:13)
--- NOTE | 2017-08-20 10:38 | Cardiac Procedure Note-CS/ASA ---
Pre-Procedure Note Pre-Op Procedure Note H&P Reviewed The H&P was reviewed, patient examined and no changes noted. Date H&P Reviewed: Aug 20, 2017 Time H&P Reviewed: 10:37 Conscious Sedation Pre-Proced Time Reviewed: 10:37 ASA Class: 3 Airway Mallampati Classification: (alutiiq appropriate class) I. II. III, IV Lungs Heart ASA score ASA 1: a normal healthy patient ASA 2: a patient with a mild systemic disease (mid diabetes, controlled hypertension, obesity ASA 3: a patient with a severe systemic disease that limits activity (angina , COPD, prior Myocardial infarction) ASA 4: a patient with an incapacitating disease that is a constant threat to life (CHF, renal failure) ASA 5: a moribund patient not expected to survive 24 hrs. (ruptured aneurysm) ASA 6: a declared brain patient whose organs are being harvested. For emergent operations, add the letter E after the classification Grade 3 Sedation Plan: Analgesia, Amnesia, Plan communicated to team members, Discussed options with patient/fam, Discussed risks with patient/fam Note The patient is an appropriate candidate to undergo the planned procedure, sedation, and anesthesia. The patient immediately re-assessed prior to indication. BRENDA RIVAS MD FACP FAC CCDS Aug 20, 2017 10:38
[2017-08-20] MEDS ORDERED: HEParin 1000 UNIT/ML (10ML VIAL) FOR BOLUS ONE (11:02)
[2017-08-20] MEDS ORDERED: EPTIFIBATIDE BOLUS 20 ML IV ONE (11:03)
[2017-08-20] MEDS ORDERED: ATROPINE INJECTION 1 MG/10 ML SYR (ABBOTT) ONE (11:12)
[2017-08-20] MEDS ORDERED: NITRO DRIP 25000 MCG/D5W 250 ML IV ONE (11:16)
[2017-08-20] MEDS ORDERED: ASPIRIN 81 MG CHEW (CHILDREN'S ASA) ONE (11:31)
[2017-08-20] MEDS ORDERED: CLOPIDOGREL 300 MG (PLAVIX) TABLET PO ONE (11:31)
[2017-08-20] MEDS ORDERED: NON-FORMULARY MEDICATION 1 EA EA (Pravastatin Sodium 40 MG) PO SCH (11:45)
[2017-08-20] MEDS ORDERED: PATIENT MAY USE OWN MEDS, ALL PO SCH (11:45)
[2017-08-20] MEDS ORDERED: NON-FORMULARY MEDICATION 1 EA EA (Albuterol Sulfate (Ventolin Hfa) 2 PUFF) IH SCH (11:45)
[2017-08-20] MEDS ORDERED: NITROGLYCERIN 0.4 MG SL TABS BTL 25'S SL SCH (11:45)
--- NOTE | 2017-08-20 13:29 | CARDIAC CATHETERIZATION ---
DATE OF SERVICE: 08/20/2017 CARDIAC CATHETERIZATION AND CORONARY INTERVENTION REPORT HISTORY: The patient is a 62-year-old lady who has multiple risk factors and symptoms of crescendo angina. Cardiac catheterization had been recommended to her, but she had been refusing because she did not wish to be premedicated with steroids. She needed premedication because of history of contrast allergy. Finally, she agreed and cardiac catheterization was carried out today with premedication with steroids to reduce risk of contrast allergy. Informed consent was obtained for cardiac catheterization and ad hoc coronary intervention, if needed. PROCEDURE: She was brought to the cardiac catheterization laboratory in a fasting state. Right groin was prepared and draped in the usual sterile fashion. Lidocaine 1% as local anesthesia. Modified Seldinger technique was used to advance a 5-[place] sheath, right femoral artery. We used a 5-[place] JL4 catheter for left coronary angiography and a 5-[place] JR4 catheter for left heart catheterization, left ventricular angiography. A 5-[place] JR4 were used for angiography of the right coronary artery. Angiography of the right femoral artery was carried out through the sheath. PERCUTANEOUS INTERVENTION OF THE RIGHT CORONARY ARTERY: Following completion of the diagnostic procedure, we carried out percutaneous intervention to the right coronary artery where the patient was found to have 95% proximal mid vessel stenosis. We used a 6-[place] JR4 guide catheter with side holes. We advanced a BMW wire across the lesion and the tip was placed in the distal vessel. We carried out balloon angioplasty with Emerge 2.5 x 30 mm balloon. We then stented the proximal and mid right coronary artery with Alpine Xience 3.0 mm x 28 mm stent deployed at 18 atmospheres. Subsequent angiography revealed 0% residual stenosis in the proximal and mid right coronary artery. There appeared to be 70% stenosis in the right ostial coronary artery. We advanced Xience Alpine 3.5 x 12 mm stent to the ostial right coronary artery. This slightly overlaps the proximal part of the previously deployed stent. This stent was deployed at 14 atmospheres. Subsequent angiography revealed 0% residual stenosis. Flow throughout the vessel was normal. She tolerated the procedure well. At the end of the procedure, Mynx was used to achieve hemostasis. She received 6000 units of intravenous heparin during the procedure and a double bolus of Integrilin was also given. HEMODYNAMICS: Left ventricular end-diastolic pressure following coronary angiography was 15 mmHg. There is no significant pressure gradient pullback across the aortic valve. Ascending aortic pressure was 96/50. LEFT VENTRICULAR ANGIOGRAPHY: Left ventricular angiography was carried out in right anterior oblique projection. Global left ventricular systolic function appears normal. No distinct regional wall motion abnormality is seen. No significant mitral regurgitation is seen in this view. Left ventricular ejection fraction is approximately 60%. CORONARY ANGIOGRAPHY: Left main coronary artery is free of significant disease. Left circumflex artery is free of significant disease. Left anterior descending artery is free of significant disease. Right coronary artery is dominant and had a 95% proximal mid vessel stenosis and 70% ostial stenosis. Successful stenting of the proximal mid right coronary artery was carried out with Alpine Xience 3.0 mm x 28 mm stent. Successful stenting of the ostial right coronary artery was carried out with Alpine 3.5 x 12 mm stent. The stent overlapped slightly. Subsequent angiography revealed 0% residual stenosis. CONCLUSIONS: 1. Single vessel coronary artery disease consisting of 95% proximal and mid vessel stenosis of the RCA that was stented with Alpine Xience 3.0 mm x 28 mm stent and a 70% ostial stenosis of the RCA that was stented with Alpine Xience 3.5 x 12 mm stent. The rest of the coronary arteries do not exhibit significant obstructive disease. 2. Well preserved global left ventricular systolic function with ejection fraction approximately 60%. 3. Mild elevation left ventricular end-diastolic pressure. 4. No significant mitral regurgitation seen on this study. DISCUSSION AND RECOMMENDATIONS: Dual antiplatelet therapy is being continued. Statins are being continued. Beta blockers are being continued. Risk factor modification was reviewed. She remains hospitalized for observation after today's procedure. Job ID: [id number] DocumentID: [id number] Dictated Date: 08/20/2017 12:03:28 Category Planner Date: 08/20/2017 13:28:29 Dictated By: BRENDA RIVAS MD, MA, FACP, FACC, MTDD
[2017-08-20] MEDS ORDERED: FLUT1DIS26 IH (15:22)
[2017-08-20] MEDS ORDERED: DOXE50CA3 PO (15:22)
[2017-08-20] MEDS ORDERED: ALBU2.5V4 NEB (15:25)
[2017-08-20] MEDS ORDERED: PRAVASTATIN 40 MG TABLET PO SCH (18:00)
[2017-08-20] MEDS ORDERED: LETROZOLE 2.5 MG (FEMARA) TAB PO SCH (18:00)
[2017-08-20] MEDS ORDERED: RT-ALBUTEROL SULF 2.5 MG/3 ML PRE-MIX VIAL IH SCH (18:00)
[2017-08-20] MEDS ORDERED: PATIENT MAY USE OWN MED,SINGLE MED PO SCH (19:45)
[2017-08-20] MEDS: oxyCODONE ER 10 MG (OxyCONTIN CR) TAB PO SCH (20:49)
[2017-08-20] MEDS ORDERED: PREGABALIN 100 MG (LYRICA) CAPSULE PO SCH (21:00)
[2017-08-20] MEDS ORDERED: DOXEPIN 50 MG CAPSULE PO SCH (21:00)
[2017-08-21] VITALS (8 sets, daily range): BP systolic 100–133; BP diastolic 69–91
[2017-08-21 03:57] LABS: HEMOGLOBIN 12.4 G/DL (11.5-16.0); RED BLOOD COUNT 4.08 10^6/uL (4.35-5.85); RED CELL DISTRIBUTION WIDTH 16.9 % (10.0-14.5); WHITE BLOOD COUNT 9.4 10^3/uL (4.3-11.0)
[2017-08-21 04:15] LABS: BUN/CREATININE RATIO 11; CALCIUM 9.9 MG/DL (8.5-10.1); CARBON DIOXIDE 25 MMOL/L (21-32); CHLORIDE 107 MMOL/L (98-107); GFR ESTIMATED > 60; GLUCOSE 178 MG/DL (70-105); POTASSIUM 4.4 MMOL/L (3.6-5.0); SODIUM 141 MMOL/L (135-145)
[2017-08-21] MEDS ORDERED: LEVOTHYROXINE 50 MCG (LEVOTHROID) TAB PO SCH (06:30)
[2017-08-21] MEDS ORDERED: DEXILANT 30 MG PO SCH (07:00)
[2017-08-21] MEDS ORDERED: PANTOPRAZOLE 40 MG (PROTONIX) TAB PO SCH ×2 (07:00→09:00)
--- NOTE | 2017-08-21 07:57 | Progress Note-Cardiology ---
Cardiology SOAP Progress Note Objective: I&O/Vital Signs Weight (Pounds): 180 Weight (Ounces): 0.0 Weight (Calculated Kilograms): 81.278293 Results/Procedures: Labs Microbiology 08/20/17 MRSA Screen - Final, Complete MRSA not isolated Procedures S/P cardiac cath with successful intervention. Please refer to cardiac cath report of 08-20-17 for details. A/P: Assessment: CAD: Cardiac cath of 08-20-17: Single vessel coronary artery disease consisting of 95% proximal and mid vessel stenosis of the RCA that was stented with Alpine Xience 3.0 mm x 28 mm stent and a 70% ostial stenosis of the RCA that was stented with Alpine Xience 3.5 x 12 mm stent. The rest of the coronary arteries do not exhibit significant obstructive disease. Well preserved global left ventricular systolic function with ejection fraction approximately 60%. Mild elevation left ventricular end-diastolic pressure. No significant mitral regurgitation seen on this study. 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 MRI head of 05/27/17: Patchy small areas of acute infarction are seen in the left frontal and left parietal regions and minimal lacunar infarcts are also seen in the right parietal region. Consider the possibility of an embolic phenomena or watershed infarcts Carotid arterial disease on carotid u/s of 05/27/17 at [place], [place]: occlusion or critical high-grade stenosis in the L common carotid; high grade stenosis in the mid R common carotid artery Palpitations - ZIO ambulatory heart monitor of 01-28-17 to 02-11-17 showed average HR of 103. One run of SVT lasting 5 beats with an average HR of approx 150 bpm Intolerant to BB tx, d/t hypotension on these agents in the past Intolerant to CCB, d/t mental status changes and low bp LVEF 60-65%; Doppler parameters consistent with restrictive physiology, indicative of decreased LV diastolic compliance and/or increased LA pressure. Mild Aortic valve regurg. per Echocardiogram of January 2017 MPI of October 2016: no evidence of any significant myocardial ischemia or infarcion. LVEF 64%. Normal LV cavity size Chronic exertional dyspnea and nonspecific chest discomfort, stable Chronic tobacco use Stage IIIc R breast cancer, treated with chemo, surgery, and radiation. Metastasis to the bone (diagnosed in 2016) managed by Dr Benítez who is her oncologist COPD, managed by her graffiti cleaner, Dr Hart H/O hypertension - currently somewhat low blood pressure Hypercholesterolemia DM II Elevated BMI of approx 32 Mild hypercalcemia, managed by Dr Benítez, her oncologist Hypothyroidism, being managed by her pcp Has previously refused any dye test due to dye allergy and also allergy to steroids. She states that the allergy to steroids is marked wgt gain and swelling even with a single dose of steroids CYNTHIA SOLO Aug 21, 2017 07:57
[2017-08-21] MEDS: oxyCODONE ER 10 MG (OxyCONTIN CR) TAB PO SCH (08:22)
[2017-08-21] MEDS ORDERED: CLOPIDOGREL 75 MG (PLAVIX) TABLET PO SCH ×2 (09:00)
[2017-08-21] MEDS ORDERED: VITAMIN D3 1,000 UNITS (CHOLECALCIFEROL) TABLET PO SCH (09:00)
[2017-08-21] MEDS ORDERED: DEXLANSOPRAZOLE 30 MG PO SCH (09:00)
[2017-08-21] MEDS ORDERED: ASPIRIN E.C. 81 MG (ECOTRIN) TAB PO SCH (09:00)
--- NOTE | 2017-08-21 09:23 | Discharge Inst-Cardiology ---
Discharge Inst-Cardiac Discharge Medications Continued Medications: Albuterol Sulfate (Ventolin Hfa) 1 Puff Puff 2 PUFF IH Q4H, PUFF 1 PUFF = 90 MCG Albuterol Sulfate (Albuterol Sulfate) 2.5 Mg/3 Ml Vial.neb 2.5 MG NEB Q6H PRN for WHEEZING, EA Aspirin (Aspir 81) 81 Mg Tablet.dr 81 MG PO DAILY, TAB Cholecalciferol (Vitamin D3) (Vitamin D3) 1,000 Unit Capsule 1000 UNIT PO DAILY, CAP Clopidogrel Bisulfate (Plavix) 75 Mg Tablet 75 MG PO DAILY, TAB Cyclobenzaprine HCl (Cyclobenzaprine HCl) 10 Mg Tablet 10 MG PO BID PRN for MUSCLE SPASMS, TAB Diclofenac Sodium (Voltaren) 100 Gm Gel..gram. 2 GM TP Q6H PRN for PAIN-MILD, TUBE Doxepin HCl (Doxepin HCl) 50 Mg Capsule 100 MG PO HS, CAP TAKES 2 (50MG) CAPSULES Fluticasone/Salmeterol (Advair 250-50 Diskus) 1 Each Blst.w.dev 1 PUFF IH BID PRN for SHORTNESS OF BREATH Letrozole (Letrozole) 2.5 Mg Tablet 2.5 MG PO 6PM, TAB Levothyroxine Sodium (Levothyroxine Sodium) 50 Mcg Tablet 50 MCG PO DAILY, TAB Nitroglycerin (Nitrostat) 0.4 Mg Tab.subl 0.4 MG SL PRN, TAB Oxycodone HCl (Oxycodone HCl ER) 10 Mg Tab.er.12h 10 MG PO Q12H, TAB Oxycodone HCl (Oxycodone HCl) 5 Mg Capsule 5 MG PO Q4H PRN for PAIN-MODERATE, CAP Pantoprazole Sodium (Pantoprazole Sodium) 40 Mg Tablet.dr 40 MG PO DAILY, TAB Pravastatin Sodium (Pravastatin Sodium) 40 Mg Tablet 40 MG PO 6PM, TAB Pregabalin (Lyrica) 200 Mg Capsule 150 MG PO BID, CAP Discontinued Medications: Dexlansoprazole (Dexilant) 30 Mg Cap..bp 30 MG PO DAILY Patient Instructions Patient Instructions: PLEASE SCHEDULE FOLLOW UP APPT TO SEE DR. RIVAS NEXT SATURDAY Orders-Post D/C & Referrals Pneu Vac Indicated: Yes CYNTHIA SOLO Aug 21, 2017 09:23
--- NOTE | 2017-08-21 10:56 | Progress Note-Cardiology ---
Cardiology SOAP Progress Note Subjective: No cp or palp or syncope or shortness of breath at rest. Feels well today and wishes to go home Objective: I&O/Vital Signs Vital Sign - Last 12Hours 08/20/17 08/21/17 08/21/17 08/21/17 23:00 00:00 01:00 01:00 Pulse 118 115 127 125 B/P (MAP) 134/77 (96) 100/73 (82) 119/91 (100) Pulse Ox 97 97 98 O2 Delivery Room Air Room Air Room Air 08/21/17 08/21/17 08/21/17 08/21/17 02:00 03:00 04:00 05:00 Pulse 108 108 92 116 B/P (MAP) 128/87 (101) 133/76 (95) 126/70 (88) Pulse Ox 93 96 96 94 O2 Delivery Room Air Room Air Room Air Room Air 08/21/17 08/21/17 08/21/17 08/21/17 06:00 07:00 07:00 08:00 Pulse 114 110 109 112 B/P (MAP) 130/78 (95) 118/69 (85) 124/73 (90) Pulse Ox 94 94 96 O2 Delivery Room Air Room Air Room Air Intake and Output 08/21/17 00:00 Intake Total 120 ml Balance 120 ml Weight (Pounds): 180 Weight (Ounces): 0.0 Weight (Calculated Kilograms): [id number] Groin site without hematoma: No Condition: DP/PT pulses palpable Bruising: moderated bruising Constitutional: AAO x 3, well-developed, well-nourished Respiratory: No accessory muscle use, lungs clear to percussion, lungs clear to auscultation Cardiovascular: regular rate-rhythm, S1 and S2, systolic murmur (soft BONITA at cardiac base) Gastrointestional: No tender, soft, No guarding, No rebound, audible bowel sounds Extremities: No clubbing, No cyanosis, No significant edema Neurologic/Psychiatric: oriented x 3, grossly intact, power is 5/5 both on sides Skin: No rash on exposed areas, No ulcerations on exposed areas Results/Procedures: Labs Laboratory Tests 08/21/17 03:15: White Blood Count 9.4, Red Blood Count 4.08L, Hemoglobin 12.4, Hematocrit 38, Mean Corpuscular Volume 94, Mean Corpuscular Hemoglobin 30, Mean Corpuscular Hemoglobin Concent 33, Red Cell Distribution Width 16.9H, Platelet Count 348, Mean Platelet Volume 11.0H, Sodium Level 141, Potassium Level 4.4, Chloride Level 107, Carbon Dioxide Level 25, Anion Gap 9, Blood Urea Nitrogen 9, Creatinine 0.80, Estimat Glomerular Filtration Rate > 60, BUN/Creatinine Ratio 11, Glucose Level 178H, Calcium Level 9.9 Laboratory Tests 08/20/17 07:26 08/21/17 03:15 A/P: Assessment: CAD: Cardiac cath of 08-20-17: Single vessel coronary artery disease consisting of 95% proximal and mid vessel stenosis of the RCA that was stented with Alpine Xience 3.0 mm x 28 mm stent, and a 70% ostial stenosis of the RCA that was stented with Alpine Xience 3.5 x 12 mm stent. The rest of the coronary arteries do not exhibit significant obstructive disease. Well preserved global left ventricular systolic function with ejection fraction approximately 60%. Mild elevation left ventricular end-diastolic pressure. No significant mitral regurgitation seen on this study. Post-cath moderate groin hematoma: clinically stable and resolving R CVA resulting in L hemiparessis in early May 2017. MRI head of 05/27/17: Patchy small areas of acute infarction are seen in the left frontal and left parietal regions and minimal lacunar infarcts are also seen in the right parietal region. Consider the possibility of an embolic phenomena or watershed infarcts Carotid arterial disease on carotid u/s of 05/27/17 at [facility], [place], [place]: occlusion or critical high-grade stenosis in the L common carotid; high grade stenosis in the mid R common carotid artery Palpitations - ZIO ambulatory heart monitor of 01-28-17 to 02-11-17 showed average HR of 103. One run of SVT lasting 5 beats with an average HR of approx 150 bpm Intolerant to BB tx, d/t hypotension on these agents in the past Intolerant to CCB, d/t mental status changes and low bp LVEF 60-65%; Doppler parameters consistent with restrictive physiology, indicative of decreased LV diastolic compliance and/or increased LA pressure. Mild Aortic valve regurg. per Echocardiogram of January 2017 MPI of October 2016: no evidence of any significant myocardial ischemia or infarcion. LVEF 64%. Normal LV cavity size Chronic exertional dyspnea and nonspecific chest discomfort, stable Chronic tobacco use Stage IIIc R breast cancer, treated with chemo, surgery, and radiation. Metastasis to the bone (diagnosed in 2017) managed by Dr Benítez who is her oncologist COPD, managed by her training facilitator, Dr Hart H/O hypertension - currently somewhat low blood pressure Hypercholesterolemia DM II Elevated BMI of approx 32 Mild hypercalcemia, managed by Dr Benítez, her oncologist Hypothyroidism, being managed by her pcp Has previously refused any dye test due to dye allergy and also allergy to steroids. She states that the allergy to steroids is marked wgt gain and swelling even with a single dose of steroids Plan: We discussed the findings of card cath and cor intervention We advised and discussed cor risk factor mod We discussed groin care We advised close outpatient f/u for now BRENDA RIVAS MD FACP FAC CCDS Aug 21, 2017 10:56
== END 2017-08-21 11:00 | disposition home or self-care (01) ==
LOC: CATH 07:03 → SURG 12:07 → ICU 13:58 → CATH 08-21 11:00
PROVIDERS: ATTEND Nurse Practitioner Family
DX: I25.10 Atherosclerotic heart disease of native coronary artery without angina pectoris (principal); I97.630 Postprocedural hematoma of a circulatory system organ or structure following a cardiac catheterization; I65.23 Occlusion and stenosis of bilateral carotid arteries; I35.1 Nonrheumatic aortic (valve) insufficiency; I10 Essential (primary) hypertension; E78.00 Pure hypercholesterolemia, unspecified; E11.9 Type 2 diabetes mellitus without complications; E03.9 Hypothyroidism, unspecified; R06.09 Other forms of dyspnea; J44.9 Chronic obstructive pulmonary disease, unspecified; E83.52 Hypercalcemia; F17.210 Nicotine dependence, cigarettes, uncomplicated; C50.911 Malignant neoplasm of unspecified site of right female breast; C79.51 Secondary malignant neoplasm of bone; I69.354 Hemiplegia and hemiparesis following cerebral infarction affecting left non-dominant side; E66.9 Obesity, unspecified; Z68.32 Body mass index [BMI] 32.0-32.9, adult; Z79.02 Long term (current) use of antithrombotics/antiplatelets; Z79.82 Long term (current) use of aspirin; Z79.899 Other long term (current) drug therapy; Z91.041 Radiographic dye allergy status; Z88.8 Allergy status to other drugs, medicaments and biological substances; Z92.21 Personal history of antineoplastic chemotherapy; Z92.3 Personal history of irradiation
CPT/HCPCS: 36415; 80048; 80053; 80061; 85027; 85610; 85730; 87081; 93005; 93458

== ENCOUNTER 2017-08-28 10:22 | Outpatient (RCR) | payer MEDICARE, MEDICAID ==
[2017-06-26 11:13] LABS: BASOPHILS % (AUTO) 0 % (0-10); EOSINOPHILS # (AUTO) 0.4 10^3/uL (0.0-0.3); EOSINOPHILS % (AUTO) 6 % (0-10); HEMATOCRIT 39 % (35-52); HEMOGLOBIN 12.9 G/DL (11.5-16.0); LYMPHOCYTES % (AUTO) 14 % (12-44); MEAN CORPUSCULAR HEMOGLOBIN 30 PG (25-34); MEAN CORPUSCULAR HGB CONC 33 G/DL (32-36); MEAN CORPUSCULAR VOLUME 91 FL (80-99); MEAN PLATELET VOLUME 10.6 FL (7.4-10.4); MONOCYTES # (AUTO) 0.5 X 10^3 (0.0-1.0); MONOCYTES % (AUTO) 7 % (0-12); NEUTROPHILS % (AUTO) 73 % (42-75); PLATELET COUNT 354 10^3/uL (130-400); RED BLOOD COUNT 4.31 10^6/uL (4.35-5.85); RED CELL DISTRIBUTION WIDTH 21.4 % (10.0-14.5); WHITE BLOOD COUNT 6.8 10^3/uL (4.3-11.0)
[2017-06-26 11:36] LABS: ALANINE AMINOTRANSFERASE 23 U/L (0-55); ALBUMIN 3.5 GM/DL (3.2-4.5); ALKALINE PHOSPHATASE 182 U/L (40-136); BILIRUBIN,TOTAL 0.3 MG/DL (0.1-1.0); BUN/CREATININE RATIO 11; CALCIUM 9.2 MG/DL (8.5-10.1); CARBON DIOXIDE 22 MMOL/L (21-32); CHLORIDE 103 MMOL/L (98-107); CREATININE SERUM 0.85 MG/DL (0.60-1.30); GFR ESTIMATED > 60; GLUCOSE 154 MG/DL (70-105); POTASSIUM 4.1 MMOL/L (3.6-5.0); SODIUM 137 MMOL/L (135-145); TOTAL PROTEIN 6.7 GM/DL (6.4-8.2)
[2017-07-30 14:22] LABS: BASOPHILS % (AUTO) 1 % (0-10); EOSINOPHILS # (AUTO) 0.3 10^3/uL (0.0-0.3); EOSINOPHILS % (AUTO) 5 % (0-10); HEMATOCRIT 40 % (35-52); LYMPHOCYTES # (AUTO) 1.6 X 10^3 (1.0-4.0); LYMPHOCYTES % (AUTO) 30 % (12-44); MEAN CORPUSCULAR HEMOGLOBIN 31 PG (25-34); MEAN CORPUSCULAR HGB CONC 33 G/DL (32-36); MEAN CORPUSCULAR VOLUME 94 FL (80-99); MEAN PLATELET VOLUME 10.7 FL (7.4-10.4); MONOCYTES # (AUTO) 0.4 X 10^3 (0.0-1.0); MONOCYTES % (AUTO) 7 % (0-12); NEUTROPHILS # (AUTO) 3.2 X 10^3 (1.8-7.8); NEUTROPHILS % (AUTO) 58 % (42-75); PLATELET COUNT 367 10^3/uL (130-400); RED BLOOD COUNT 4.24 10^6/uL (4.35-5.85); RED CELL DISTRIBUTION WIDTH 19.8 % (10.0-14.5); WHITE BLOOD COUNT 5.5 10^3/uL (4.3-11.0)
[2017-07-30 14:45] LABS: ALANINE AMINOTRANSFERASE 38 U/L (0-55); ALBUMIN 3.6 GM/DL (3.2-4.5); ALKALINE PHOSPHATASE 193 U/L (40-136); BILIRUBIN,TOTAL 0.4 MG/DL (0.1-1.0); BUN/CREATININE RATIO 13; CALCIUM 9.2 MG/DL (8.5-10.1); CARBON DIOXIDE 25 MMOL/L (21-32); CHLORIDE 108 MMOL/L (98-107); GFR ESTIMATED > 60; GLUCOSE 152 MG/DL (70-105); SODIUM 141 MMOL/L (135-145); TOTAL PROTEIN 6.7 GM/DL (6.4-8.2)
[2017-08-28 10:42] LABS: BASOPHILS % (AUTO) 0 % (0-10); EOSINOPHILS # (AUTO) 0.4 10^3/uL (0.0-0.3); EOSINOPHILS % (AUTO) 5 % (0-10); HEMATOCRIT 36 % (35-52); HEMOGLOBIN 11.3 G/DL (11.5-16.0); LYMPHOCYTES # (AUTO) 1.4 X 10^3 (1.0-4.0); LYMPHOCYTES % (AUTO) 19 % (12-44); MEAN CORPUSCULAR HEMOGLOBIN 31 PG (25-34); MEAN CORPUSCULAR HGB CONC 32 G/DL (32-36); MEAN CORPUSCULAR VOLUME 97 FL (80-99); MEAN PLATELET VOLUME 10.4 FL (7.4-10.4); MONOCYTES # (AUTO) 0.6 X 10^3 (0.0-1.0); MONOCYTES % (AUTO) 9 % (0-12); NEUTROPHILS # (AUTO) 4.8 X 10^3 (1.8-7.8); NEUTROPHILS % (AUTO) 67 % (42-75); PLATELET COUNT 405 10^3/uL (130-400); RED BLOOD COUNT 3.69 10^6/uL (4.35-5.85); RED CELL DISTRIBUTION WIDTH 16.6 % (10.0-14.5); WHITE BLOOD COUNT 7.3 10^3/uL (4.3-11.0)
[2017-08-28 10:59] LABS: ALANINE AMINOTRANSFERASE 22 U/L (0-55); ALBUMIN 3.7 GM/DL (3.2-4.5); ALKALINE PHOSPHATASE 120 U/L (40-136); BILIRUBIN,TOTAL 0.6 MG/DL (0.1-1.0); BUN/CREATININE RATIO 14; CALCIUM 9.1 MG/DL (8.5-10.1); CARBON DIOXIDE 26 MMOL/L (21-32); CHLORIDE 106 MMOL/L (98-107); CREATININE SERUM 0.83 MG/DL (0.60-1.30); GFR ESTIMATED > 60; GLUCOSE 153 MG/DL (70-105); POTASSIUM 4.1 MMOL/L (3.6-5.0); SODIUM 139 MMOL/L (135-145); TOTAL PROTEIN 6.2 GM/DL (6.4-8.2)
== END 2017-09-24 | disposition home or self-care (01) ==
LOC: ONC 10:22
PROVIDERS: ATTEND Internal Medicine Hematology & Oncology
DX: C79.51 Secondary malignant neoplasm of bone (principal); Z85.3 Personal history of malignant neoplasm of breast; R91.8 Other nonspecific abnormal finding of lung field; E03.9 Hypothyroidism, unspecified; I10 Essential (primary) hypertension; J44.9 Chronic obstructive pulmonary disease, unspecified; F17.210 Nicotine dependence, cigarettes, uncomplicated; Z90.11 Acquired absence of right breast and nipple; Z92.21 Personal history of antineoplastic chemotherapy; Z79.899 Other long term (current) drug therapy
CPT/HCPCS: 36415; 80053; 85025; 86300; 99213

== ENCOUNTER → 2017-08-28 | Outpatient (CLI) | payer MEDICARE, MEDICAID ==
[~2017-08-28] MED LIST changes: +ALBU2.5V4 NEB; +CHOL10007 PO; +CLOP75TA69 PO; +CYCL10TA9 PO; +DEXL30CA2 PO; +DICL100G18 TP; +DOXE100C4 PO; +DOXE50CA3 PO; +FLUT1DIS26 IH; +LETR2.5T5 PO; +LEVO50TA6 PO; +OXYC10TA85 PO; +OXYC5CAP18 PO; +PANT40SU PO; +PANT40TA3 PO; +RT-ALBUINH IH
--- NOTE | 2017-08-28 16:27 | Diagnostic Imaging Report ---
EXAMINATION: Ultrasound of the right arterial lower extremity. INDICATION: Right groin pain post heart catheterization. TECHNIQUE/COMPARISON: Spectral and color flow imaging of the right groin was performed. There are no prior studies available for comparison. FINDINGS: There is no evidence for a pseudoaneurysm, AV fistula, or hematoma formation in the right groin. There is good arterial blood flow in the common femoral and superficial femoral arteries. IMPRESSION: There is no evidence for an acute vascular abnormality in the right groin. Dictated by: Dictated on workstation # [id number]
== END ==
LOC: RAD 15:44
PROVIDERS: ATTEND Nurse Practitioner Family
DX: I25.10 Atherosclerotic heart disease of native coronary artery without angina pectoris (principal); I10 Essential (primary) hypertension; I65.23 Occlusion and stenosis of bilateral carotid arteries; R06.02 Shortness of breath; Z72.0 Tobacco use
CPT/HCPCS: 93926

== ENCOUNTER 2017-11-27 09:10 | Outpatient (RCR) | payer MEDICARE, MEDICAID ==
[2017-10-16 10:35] LABS: BASOPHILS % (AUTO) 0 % (0-10); EOSINOPHILS # (AUTO) 0.2 10^3/uL (0.0-0.3); EOSINOPHILS % (AUTO) 5 % (0-10); HEMATOCRIT 40 % (35-52); HEMOGLOBIN 12.4 G/DL (11.5-16.0); LYMPHOCYTES # (AUTO) 1.3 X 10^3 (1.0-4.0); LYMPHOCYTES % (AUTO) 28 % (12-44); MEAN CORPUSCULAR HEMOGLOBIN 29 PG (25-34); MEAN CORPUSCULAR HGB CONC 31 G/DL (32-36); MEAN CORPUSCULAR VOLUME 94 FL (80-99); MEAN PLATELET VOLUME 10.2 FL (7.4-10.4); MONOCYTES # (AUTO) 0.4 X 10^3 (0.0-1.0); MONOCYTES % (AUTO) 9 % (0-12); NEUTROPHILS # (AUTO) 2.5 X 10^3 (1.8-7.8); NEUTROPHILS % (AUTO) 57 % (42-75); PLATELET COUNT 334 10^3/uL (130-400); RED BLOOD COUNT 4.26 10^6/uL (4.35-5.85); RED CELL DISTRIBUTION WIDTH 15.5 % (10.0-14.5); WHITE BLOOD COUNT 4.5 10^3/uL (4.3-11.0)
[2017-10-16 10:57] LABS: ALANINE AMINOTRANSFERASE 19 U/L (0-55); ALBUMIN 3.6 GM/DL (3.2-4.5); ALKALINE PHOSPHATASE 111 U/L (40-136); BILIRUBIN,TOTAL 0.2 MG/DL (0.1-1.0); BUN/CREATININE RATIO 9; CALCIUM 10.1 MG/DL (8.5-10.1); CARBON DIOXIDE 31 MMOL/L (21-32); CHLORIDE 107 MMOL/L (98-107); CREATININE SERUM 0.76 MG/DL (0.60-1.30); GFR ESTIMATED > 60; GLUCOSE 110 MG/DL (70-105); POTASSIUM 4.1 MMOL/L (3.6-5.0); SODIUM 142 MMOL/L (135-145); TOTAL PROTEIN 6.5 GM/DL (6.4-8.2)
[2017-11-27 09:29] LABS: BASOPHILS % (AUTO) 0 % (0-10); EOSINOPHILS # (AUTO) 0.3 10^3/uL (0.0-0.3); EOSINOPHILS % (AUTO) 4 % (0-10); HEMATOCRIT 43 % (35-52); HEMOGLOBIN 13.6 G/DL (11.5-16.0); LYMPHOCYTES # (AUTO) 1.3 X 10^3 (1.0-4.0); LYMPHOCYTES % (AUTO) 19 % (12-44); MEAN CORPUSCULAR HEMOGLOBIN 29 PG (25-34); MEAN CORPUSCULAR HGB CONC 32 G/DL (32-36); MEAN CORPUSCULAR VOLUME 91 FL (80-99); MEAN PLATELET VOLUME 10.5 FL (7.4-10.4); MONOCYTES # (AUTO) 0.3 X 10^3 (0.0-1.0); MONOCYTES % (AUTO) 5 % (0-12); NEUTROPHILS # (AUTO) 4.8 X 10^3 (1.8-7.8); NEUTROPHILS % (AUTO) 71 % (42-75); PLATELET COUNT 366 10^3/uL (130-400); RED BLOOD COUNT 4.68 10^6/uL (4.35-5.85); RED CELL DISTRIBUTION WIDTH 15.5 % (10.0-14.5); WHITE BLOOD COUNT 6.7 10^3/uL (4.3-11.0)
[2017-11-27 09:52] LABS: ALANINE AMINOTRANSFERASE 18 U/L (0-55); ALBUMIN 3.5 GM/DL (3.2-4.5); ALKALINE PHOSPHATASE 129 U/L (40-136); BILIRUBIN,TOTAL 0.3 MG/DL (0.1-1.0); BUN/CREATININE RATIO 11; CALCIUM 10.6 MG/DL (8.5-10.1); CARBON DIOXIDE 27 MMOL/L (21-32); CHLORIDE 107 MMOL/L (98-107); CREATININE SERUM 0.76 MG/DL (0.60-1.30); GFR ESTIMATED > 60; GLUCOSE 118 MG/DL (70-105); SODIUM 142 MMOL/L (135-145); TOTAL PROTEIN 6.5 GM/DL (6.4-8.2)
== END 2018-01-14 | disposition home or self-care (01) ==
LOC: ONC 09:10
PROVIDERS: ATTEND Internal Medicine Hematology & Oncology
DX: C79.51 Secondary malignant neoplasm of bone (principal); Z85.3 Personal history of malignant neoplasm of breast; R91.8 Other nonspecific abnormal finding of lung field; E03.9 Hypothyroidism, unspecified; I10 Essential (primary) hypertension; J44.9 Chronic obstructive pulmonary disease, unspecified; F17.210 Nicotine dependence, cigarettes, uncomplicated; Z90.11 Acquired absence of right breast and nipple; Z92.21 Personal history of antineoplastic chemotherapy; Z79.899 Other long term (current) drug therapy
CPT/HCPCS: 36415; 80053; 85025; 86300; 99213

== ENCOUNTER 2018-01-28 09:47 | Outpatient (RCR) | payer MEDICARE, MEDICAID ==
[2018-01-28 10:10] LABS: BASOPHILS % (AUTO) 1 % (0-10); EOSINOPHILS # (AUTO) 0.3 10^3/uL (0.0-0.3); EOSINOPHILS % (AUTO) 6 % (0-10); HEMATOCRIT 42 % (35-52); HEMOGLOBIN 13.4 G/DL (11.5-16.0); LYMPHOCYTES # (AUTO) 1.3 X 10^3 (1.0-4.0); LYMPHOCYTES % (AUTO) 23 % (12-44); MEAN CORPUSCULAR HEMOGLOBIN 29 PG (25-34); MEAN CORPUSCULAR HGB CONC 32 G/DL (32-36); MEAN CORPUSCULAR VOLUME 89 FL (80-99); MEAN PLATELET VOLUME 10.8 FL (7.4-10.4); MONOCYTES # (AUTO) 0.4 X 10^3 (0.0-1.0); MONOCYTES % (AUTO) 6 % (0-12); NEUTROPHILS # (AUTO) 3.6 X 10^3 (1.8-7.8); NEUTROPHILS % (AUTO) 65 % (42-75); PLATELET COUNT 340 10^3/uL (130-400); RED BLOOD COUNT 4.69 10^6/uL (4.35-5.85); RED CELL DISTRIBUTION WIDTH 17.7 % (10.0-14.5); WHITE BLOOD COUNT 5.6 10^3/uL (4.3-11.0)
[2018-01-28 10:33] LABS: ALANINE AMINOTRANSFERASE 37 U/L (0-55); ALBUMIN 3.7 GM/DL (3.2-4.5); ALKALINE PHOSPHATASE 158 U/L (40-136); BILIRUBIN,TOTAL 0.3 MG/DL (0.1-1.0); BUN/CREATININE RATIO 17; CARBON DIOXIDE 27 MMOL/L (21-32); CHLORIDE 106 MMOL/L (98-107); CREATININE SERUM 0.84 MG/DL (0.60-1.30); GFR ESTIMATED > 60; GLUCOSE 171 MG/DL (70-105); SODIUM 143 MMOL/L (135-145); TOTAL PROTEIN 6.6 GM/DL (6.4-8.2)
== END 2018-02-14 | disposition home or self-care (01) ==
LOC: ONC 09:47
PROVIDERS: ATTEND Internal Medicine Hematology & Oncology
DX: C79.51 Secondary malignant neoplasm of bone (principal); Z85.3 Personal history of malignant neoplasm of breast; R91.8 Other nonspecific abnormal finding of lung field; E03.9 Hypothyroidism, unspecified; I10 Essential (primary) hypertension; J44.9 Chronic obstructive pulmonary disease, unspecified; F17.210 Nicotine dependence, cigarettes, uncomplicated; Z90.11 Acquired absence of right breast and nipple; Z92.21 Personal history of antineoplastic chemotherapy; Z79.899 Other long term (current) drug therapy
CPT/HCPCS: 80053; 85025; 86300; 99213

== ENCOUNTER → 2018-04-21 | Outpatient (CLI) | payer MEDICARE, MEDICAID ==
[~2018-04-21] MED LIST changes: +CATHETER FLUSH 10 ML SYR IV PRN
--- NOTE | 2018-04-21 18:08 | Diagnostic Imaging Report ---
INDICATION: Breast carcinoma. TECHNIQUE: Patient was administered 15.8 mCi of technetium-99m MDP intravenously, and whole-body imaging was performed after a three-hour delay. COMPARISON: Correlation is made with prior bone scan from 02/12/2017. FINDINGS: There is uptake of activity by the axial and appendicular skeleton. There is uptake by both kidneys with excretion into the urinary bladder. Only vague uptake in the mid shaft of the left femur is seen on today's study. In addition, the area of uptake involving the right hemipelvis at the hip is much less prominent on today's study. There are several foci of uptake in the upper, mid, and lower thoracic spine as well as the lumbar spine, similar to prior. Tiny focus involving a left posterior rib previously is not well seen. The posterior calvarium at the midline is unchanged. No new focus of tracer attenuation is seen. IMPRESSION: While there are still several areas of abnormal uptake, as described, multiple regions do appear to be improved when compared with the bone scan from 02/12/2017. Dictated by: Dictated on workstation # [id number]
== END ==
LOC: CARD 11:05
PROVIDERS: ATTEND Nurse Practitioner Adult Health
DX: C50.411 Malignant neoplasm of upper-outer quadrant of right female breast (principal); C79.51 Secondary malignant neoplasm of bone
CPT/HCPCS: 78306

== ENCOUNTER → 2018-04-23 | Outpatient (CLI) | payer MEDICARE, MEDICAID ==
[~2018-04-23] MED LIST changes: +BARIUM SUSPENSION 2.1% (VANILLA SILQ) 450 ML PO ONE; -CATHETER FLUSH 10 ML SYR IV PRN; +IOHEXOL 350 MG/ML 100 ML (OMNIPAQUE 350) VIAL IV ONE; +NS 250 ML (IVPB) BAG IV ONE; +RECEIVED CONTRAST (Hold Metformin) IV SCH
--- NOTE | 2018-04-23 15:50 | Diagnostic Imaging Report ---
INDICATION: Breast carcinoma. TECHNIQUE: Precontrast axial imaging through the abdomen and pelvis with postcontrast axial imaging through the neck, chest, abdomen and pelvis was performed. CT NECK: Comparison is made with prior CT of the neck study from 07/01/2015. Visualized intracranial structures are unremarkable. Posterior nasopharynx and oropharynx are unremarkable. Parapharyngeal fat planes are preserved. Epiglottis and larynx are unremarkable. No thyroid mass is seen. The submandibular and parotid glands appear to be symmetric bilaterally. There are normal-sized lymph nodes in the jugulodigastric regions bilaterally. Posterior cervical spaces are unremarkable. No definite supraclavicular lymphadenopathy is seen. IMPRESSION: Unremarkable CT of the neck. CT CHEST: Correlation is made with prior CT of the chest and abdomen from 02/12/2017. Post-surgical changes of right mastectomy are seen. No axillary lymphadenopathy is identified. No definite hilar or mediastinal lymphadenopathy is seen. No pericardial or pleural fluid is identified. 6 mm nodule in the right upper lobe is stable, image #22. Nodular density more inferiorly in the right middle lobe is stable at 8 mm, image #28. Tiny subpleural nodule laterally in the right lower lobe measures 3 mm compared with 4 mm. No new pulmonary nodule is seen. IMPRESSION: Stable pulmonary nodules when compared with the exam from 02/12/2017. No thoracic lymphadenopathy or effusion is seen. CT ABDOMEN AND PELVIS: There is generalized low density throughout the liver consistent with hepatic steatosis. No discrete liver mass is seen. Gallbladder is unremarkable. The pancreas and spleen are unremarkable. No adrenal mass is detected. Kidneys are unremarkable. Aorta and iliacs are heavily calcified but nonaneurysmal. No central retroperitoneal or mesenteric lymphadenopathy is seen. No definite iliac or inguinal lymphadenopathy is identified. Bowel loops are normal in caliber. There is no ascites. The bladder is unremarkable. Bony structures demonstrate some osteoblastic lesions throughout the pelvis including bilateral iliac bones as well as the superior and inferior rami and bilateral proximal femora. There are also multiple osteoblastic lesions throughout the lumbar spine. Osteoblastic involvement of the lumbar spine as well as the thoracic spine appears increased since prior CTs. IMPRESSION: Worsening osteoblastic disease throughout the thoracic and lumbar spine as well as the bony pelvis when compared with prior exam. No abdominal or pelvic lymphadenopathy is detected. Dictated by: Dictated on workstation # [id number]
== END ==
LOC: RAD 13:06
PROVIDERS: ATTEND Nurse Practitioner Adult Health
DX: C50.411 Malignant neoplasm of upper-outer quadrant of right female breast (principal); C79.51 Secondary malignant neoplasm of bone; R91.8 Other nonspecific abnormal finding of lung field; Z90.11 Acquired absence of right breast and nipple
CPT/HCPCS: 70491; 71260; 74178

== ENCOUNTER 2018-06-04 13:06 | Outpatient (RCR) | payer MEDICARE, MEDICAID ==
[2018-04-02 13:16] LABS: BASOPHILS % (AUTO) 0 % (0-10); EOSINOPHILS # (AUTO) 0.2 10^3/uL (0.0-0.3); EOSINOPHILS % (AUTO) 4 % (0-10); HEMATOCRIT 42 % (35-52); HEMOGLOBIN 13.9 G/DL (11.5-16.0); LYMPHOCYTES # (AUTO) 1.8 X 10^3 (1.0-4.0); LYMPHOCYTES % (AUTO) 28 % (12-44); MEAN CORPUSCULAR HEMOGLOBIN 29 PG (25-34); MEAN CORPUSCULAR HGB CONC 33 G/DL (32-36); MEAN CORPUSCULAR VOLUME 88 FL (80-99); MEAN PLATELET VOLUME 10.6 FL (7.4-10.4); MONOCYTES # (AUTO) 0.5 X 10^3 (0.0-1.0); MONOCYTES % (AUTO) 8 % (0-12); NEUTROPHILS # (AUTO) 3.8 X 10^3 (1.8-7.8); NEUTROPHILS % (AUTO) 60 % (42-75); PLATELET COUNT 307 10^3/uL (130-400); RED BLOOD COUNT 4.74 10^6/uL (4.35-5.85); RED CELL DISTRIBUTION WIDTH 16.1 % (10.0-14.5); WHITE BLOOD COUNT 6.3 10^3/uL (4.3-11.0)
[2018-04-02 13:40] LABS: ALANINE AMINOTRANSFERASE 27 U/L (0-55); ALKALINE PHOSPHATASE 134 U/L (40-136); BILIRUBIN,TOTAL 0.4 MG/DL (0.1-1.0); BUN/CREATININE RATIO 14; CALCIUM 10.9 MG/DL (8.5-10.1); CARBON DIOXIDE 27 MMOL/L (21-32); CHLORIDE 105 MMOL/L (98-107); CREATININE SERUM 0.85 MG/DL (0.60-1.30); GFR ESTIMATED > 60; GLUCOSE 98 MG/DL (70-105); POTASSIUM 4.1 MMOL/L (3.6-5.0); SODIUM 142 MMOL/L (135-145); TOTAL PROTEIN 6.9 GM/DL (6.4-8.2)
[~2018-06-04 13:06] MED LIST changes: -BARIUM SUSPENSION 2.1% (VANILLA SILQ) 450 ML PO ONE; -IOHEXOL 350 MG/ML 100 ML (OMNIPAQUE 350) VIAL IV ONE; -NS 250 ML (IVPB) BAG IV ONE; -RECEIVED CONTRAST (Hold Metformin) IV SCH
[2018-06-04 13:45] LABS: BASOPHILS % (AUTO) 0 % (0-10); EOSINOPHILS # (AUTO) 0.2 10^3/uL (0.0-0.3); EOSINOPHILS % (AUTO) 4 % (0-10); HEMATOCRIT 43 % (35-52); HEMOGLOBIN 13.9 G/DL (11.5-16.0); LYMPHOCYTES # (AUTO) 1.4 X 10^3 (1.0-4.0); LYMPHOCYTES % (AUTO) 26 % (12-44); MEAN CORPUSCULAR HEMOGLOBIN 29 PG (25-34); MEAN CORPUSCULAR HGB CONC 32 G/DL (32-36); MEAN CORPUSCULAR VOLUME 90 FL (80-99); MEAN PLATELET VOLUME 10.7 FL (7.4-10.4); MONOCYTES # (AUTO) 0.4 X 10^3 (0.0-1.0); MONOCYTES % (AUTO) 8 % (0-12); NEUTROPHILS # (AUTO) 3.3 X 10^3 (1.8-7.8); NEUTROPHILS % (AUTO) 61 % (42-75); PLATELET COUNT 342 10^3/uL (130-400); RED BLOOD COUNT 4.81 10^6/uL (4.35-5.85); RED CELL DISTRIBUTION WIDTH 15.8 % (10.0-14.5); WHITE BLOOD COUNT 5.4 10^3/uL (4.3-11.0)
[2018-06-04 14:06] LABS: ALANINE AMINOTRANSFERASE 27 U/L (0-55); ALBUMIN 3.9 GM/DL (3.2-4.5); ALKALINE PHOSPHATASE 149 U/L (40-136); BILIRUBIN,TOTAL 0.2 MG/DL (0.1-1.0); BUN/CREATININE RATIO 13; CARBON DIOXIDE 28 MMOL/L (21-32); CHLORIDE 106 MMOL/L (98-107); CREATININE SERUM 0.93 MG/DL (0.60-1.30); GFR ESTIMATED > 60; GLUCOSE 114 MG/DL (70-105); POTASSIUM 4.4 MMOL/L (3.6-5.0); SODIUM 143 MMOL/L (135-145); TOTAL PROTEIN 6.8 GM/DL (6.4-8.2)
== END 2018-07-01 | disposition home or self-care (01) ==
LOC: ONC 13:06
PROVIDERS: ATTEND Internal Medicine Hematology & Oncology
DX: C79.51 Secondary malignant neoplasm of bone (principal); Z85.3 Personal history of malignant neoplasm of breast; R91.8 Other nonspecific abnormal finding of lung field; E03.9 Hypothyroidism, unspecified; I10 Essential (primary) hypertension; J44.9 Chronic obstructive pulmonary disease, unspecified; F17.210 Nicotine dependence, cigarettes, uncomplicated; Z90.11 Acquired absence of right breast and nipple; Z92.21 Personal history of antineoplastic chemotherapy; Z79.899 Other long term (current) drug therapy
CPT/HCPCS: 36415; 80053; 85025; 86300; 99213

== ENCOUNTER → 2018-08-08 | Outpatient (CLI) | payer MEDICARE, MEDICAID ==
[~2018-08-08] VITALS: Ht 160 cm; Wt 90.7 kg
[~2018-08-08] MED LIST changes: +CATHETER FLUSH 10 ML SYR IV PRN; +REGADENOSON 0.4 MG/5 ML SYR (LEXISCAN) IV ONE
[2018-08-08 09:00] VITALS: BP 145/72
[2018-08-08 09:02] VITALS: BP 122/69
--- NOTE | 2018-08-11 09:32 | STRESS TEST ---
DATE OF SERVICE: 08/08/2018 RESTING AND POST REGADENOSON TECHNETIUM-99M TETROFOSMIN SPECT CT IMAGING ORDERING PHYSICIAN: ASHLIE Turner CLINICAL DIAGNOSIS: Chest discomfort. Baseline images were carried out after injection of 10.76 mCi of technetium-99m Tetrofosmin. This was followed by 0.4 mg regadenoson and 30.5 mCi of technetium-99m Tetrofosmin for stress imaging. The electrocardiogram showed sinus rhythm at baseline and did not change significantly with the regadenoson infusion. Review of images at rest and following stress does not indicate any significant perfusion defects consistent with significant myocardial ischemia or infarction. Gated images show normal global left ventricular systolic function with normal regional wall motion. Left ventricular ejection fraction is calculated to be 59%. Left ventricular end diastolic volume is 43 mL. TID is absent (0.82). CONCLUSIONS: 1. No evidence of any significant myocardial ischemia or infarction on this study. 2. Normal regional wall motion. 3. Normal global left ventricular systolic function with a calculated ejection fraction of 59%. Job ID: [id number] DocumentID: [id number] Dictated Date: 08/11/2018 09:06:12 Tongue Lining Stitcher Date: 08/11/2018 09:32:37 Dictated By: BRENDA RIVAS MD, MA, FACP, FACC, MTDD
== END ==
LOC: CARD 07:16
PROVIDERS: ATTEND Nurse Practitioner Family
DX: R07.9 Chest pain, unspecified (principal); I25.10 Atherosclerotic heart disease of native coronary artery without angina pectoris; I77.9 Disorder of arteries and arterioles, unspecified; I10 Essential (primary) hypertension; Z86.79 Personal history of other diseases of the circulatory system
CPT/HCPCS: 78452; 93017

== ENCOUNTER → 2018-08-25 | Outpatient (CLI) | payer MEDICARE, MEDICAID ==
[~2018-08-25] MED LIST changes: +GADOBUTROL 10 MMOL/10 ML (GADAVIST) VIAL IV ONE; -REGADENOSON 0.4 MG/5 ML SYR (LEXISCAN) IV ONE
--- NOTE | 2018-08-25 19:01 | Diagnostic Imaging Report ---
CLINICAL INDICATION: Patient with breast cancer and headaches. Exam: MRI of the brain performed without and with 9 cc of Gadavist IV contrast. Sequences include axial DWI, ADC map, axial gradient echo, axial T2, axial FLAIR, axial T1, axial T1 post IV contrast, coronal T1 fat-sat post IV contrast, and sagittal T1 post IV contrast. Comparison: MRI of the brain performed without and with IV contrast dated 05/27/2017. CT scan of the neck, chest, abdomen, and pelvis dated 08/25/2018. Carotid ultrasound dated 05/27/2017. Findings: Again seen roughly 1.4 cm low signal lesion in the left basisphenoid/clivus region which now does not demonstrate enhancement compared to the prior study. This area is concerning for metastatic lesion and is shown to be sclerotic on comparison CT scan of the neck dated 04/23/2018. There is no abnormal IV contrast enhancement involving the brain parenchyma. No evidence of metastatic disease. There is interval evolution of the previously seen scattered areas of small infarcts involving the right cerebral hemisphere with residual small areas of encephalomalacia and gliosis. The brain parenchymal volume appears appropriate for patient's age. There is no hydrocephalus, brain herniation or midline shift. Basal cisterns are unremarkable. There is progressive loss of flow void signal involving the distal cervical left ICA to the distal left petrous ICA which may be related to occlusion or slow flow. Remainder of the [place] vascular structures show no significant abnormality. The extracranial soft tissue, remainder of the skull, and orbits are unremarkable. There is mild mucosal thickening involving the ethmoid sinus. IMPRESSION: 1: There are no new areas of metastatic disease or acute intracranial process. 2: There is interval resolution of enhancement of the low signal area in the left basisphenoid region/clivus which is concerning for metastatic disease. 3: There is interval progression of loss of flow void signal involving the visualized distal cervical left ICA to the distal petrous portion of the left ICA which may represent slow flow or occlusion. This finding may be chronic. Patient was noted to have high-grade or critical stenosis in the left common carotid artery on a carotid ultrasound exam dated 05/27/2017. 4: There is interval evolution of the small areas of infarcts involving the right cerebral hemisphere with residual encephalomalacia and gliosis. Dictated by: Dictated on workstation # [id number]
--- NOTE | 2018-08-25 19:01 | Diagnostic Imaging Report ---
INDICATION: Right breast carcinoma with metastases to bone. Study is performed for restaging. TECHNIQUE: Axial imaging through the neck, chest, abdomen, and pelvis was performed after the administration of intravenous contrast. COMPARISON: Correlation is made with prior CT from 04/23/2018. CT NECK: The visualized intracranial structures remain within normal limits. The oropharynx is unremarkable. Parapharyngeal fat planes are preserved. Larynx is unremarkable. No thyroid mass is detected. Submandibular and parotid glands appear to be symmetric bilaterally. No cervical lymphadenopathy or fluid collection is identified. IMPRESSION: Stable unremarkable CT of the neck. CT CHEST: Postop changes of right mastectomy are noted. No axillary lymphadenopathy is identified. No definite hilar or mediastinal lymphadenopathy is seen. There is no pericardial or pleural fluid. Nodule in the right middle lobe, image 22, appears stable at 5 mm. Nodule more inferiorly in the right middle lobe is stable at 8 mm. Tiny subpleural nodule laterally in the right lower lobe is stable at 3 mm. No new parenchymal abnormality is identified. Numerous osteoblastic lesions throughout the thoracic spine appear similar to prior exam. IMPRESSION: Stable CT chest since study from 04/23/2018. No thoracic lymphadenopathy is seen. Previously noted pulmonary nodules are stable. Osteoblastic disease in the thoracic spine is stable. CT ABDOMEN AND PELVIS: The liver shows generalized low density consistent with hepatic steatosis. No discrete liver mass is seen. The gallbladder is unremarkable. No biliary ductal dilatation is identified. The pancreas and spleen are unremarkable. Minimal nodularity to the left adrenal gland is noted but stable at 11 mm. Kidneys are unremarkable. Aorta is calcified but nonaneurysmal. No central retroperitoneal or mesenteric lymphadenopathy is seen. The small and large bowel loops are normal in caliber. There is no ascites. The uterus and bladder are unremarkable. Cyst in the right pelvis is stable and likely ovarian measuring 2.4 cm. No pelvic lymphadenopathy is identified. Marked osteoblastic disease throughout the lumbar spine and bony pelvis appears stable. IMPRESSION: Overall stable CT abdomen and pelvis were compared exam from 04/23/2018. No abdominal or pelvic lymphadenopathy or evidence of metastatic disease is seen. Osteoblastic metastatic disease in the lumbar spine and pelvis is stable. Dictated by: Dictated on workstation # [id number]
--- NOTE | 2018-08-25 19:04 | Diagnostic Imaging Report ---
EXAM: Nuclear medicine whole body bone scan. DATE: August 25, 2018. INDICATION: 63-year-old female, history of right-sided breast cancer with bone metastasis. COMPARISON: Nuclear medicine whole body bone scan April 21, 2018. CT neck, chest, abdomen and pelvis August 25, 2018 and April 23, 2018. FINDINGS: 24.8 mCi of technetium labeled MDP radiotracer was administered. Delayed subsequent whole-body bone scan images were subsequently obtained with additional lateral projections of the skull and ribs. There is a radiotracer avid focus of the posterior skull unchanged from prior nuclear medicine bone scan. Radiotracer uptake at the level of L3, T12, T11 and T6 is unchanged from prior nuclear medicine bone scan. There is a radiotracer avid lesion of the right eighth rib which is unchanged. There is no new radiotracer avid lesion identified. There are numerous sclerotic bone lesions seen on same day CT imaging, many of which are not radiotracer avid. IMPRESSION: 1. Unchanged radiotracer avid foci within the posterior skull, thoracic and lumbar spine as described above, and right eighth rib. These most likely relate to bone metastasis. No new radiotracer avid bone lesion identified. 2. Numerous sclerotic bone lesions seen on prior CT which are compatible with bone metastasis although are not radiotracer avid. Dictated by: Dictated on workstation # [id number]
== END ==
LOC: CARD 11:37
PROVIDERS: ATTEND Nurse Practitioner Adult Health
DX: Z01.89 Encounter for other specified special examinations (principal); C50.411 Malignant neoplasm of upper-outer quadrant of right female breast; C79.51 Secondary malignant neoplasm of bone; R26.89 Other abnormalities of gait and mobility; R51 Headache
CPT/HCPCS: 70491; 70553; 71260; 74176; 78306

== ENCOUNTER 2018-09-01 14:51 | Outpatient (RCR) | payer MEDICARE, MEDICAID ==
[2018-08-12 15:10] LABS: BASOPHILS % (AUTO) 0 % (0-10); EOSINOPHILS # (AUTO) 0.4 10^3/uL (0.0-0.3); EOSINOPHILS % (AUTO) 6 % (0-10); HEMATOCRIT 45 % (35-52); HEMOGLOBIN 14.7 G/DL (11.5-16.0); LYMPHOCYTES # (AUTO) 1.9 X 10^3 (1.0-4.0); LYMPHOCYTES % (AUTO) 28 % (12-44); MEAN CORPUSCULAR HEMOGLOBIN 29 PG (25-34); MEAN CORPUSCULAR HGB CONC 33 G/DL (32-36); MEAN CORPUSCULAR VOLUME 89 FL (80-99); MEAN PLATELET VOLUME 10.8 FL (7.4-10.4); MONOCYTES # (AUTO) 0.6 X 10^3 (0.0-1.0); MONOCYTES % (AUTO) 8 % (0-12); NEUTROPHILS # (AUTO) 3.8 X 10^3 (1.8-7.8); NEUTROPHILS % (AUTO) 57 % (42-75); PLATELET COUNT 310 10^3/uL (130-400); RED CELL DISTRIBUTION WIDTH 16.4 % (10.0-14.5); WHITE BLOOD COUNT 6.7 10^3/uL (4.3-11.0)
[2018-08-12 15:35] LABS: ALANINE AMINOTRANSFERASE 38 U/L (0-55); ALBUMIN 4.2 GM/DL (3.2-4.5); ALKALINE PHOSPHATASE 147 U/L (40-136); BILIRUBIN,TOTAL 0.4 MG/DL (0.1-1.0); BUN/CREATININE RATIO 13; CALCIUM 11.2 MG/DL (8.5-10.1); CARBON DIOXIDE 27 MMOL/L (21-32); CHLORIDE 107 MMOL/L (98-107); CREATININE SERUM 0.84 MG/DL (0.60-1.30); GFR ESTIMATED > 60; GLUCOSE 106 MG/DL (70-105); POTASSIUM 4.3 MMOL/L (3.6-5.0); SODIUM 143 MMOL/L (135-145); TOTAL PROTEIN 7.1 GM/DL (6.4-8.2)
[~2018-09-01 14:51] MED LIST changes: -CATHETER FLUSH 10 ML SYR IV PRN; -GADOBUTROL 10 MMOL/10 ML (GADAVIST) VIAL IV ONE; +OXC5T PO; -OXYC5CAP18 PO
[2018-10-09 10:41] LABS: BASOPHILS % (AUTO) 0 % (0-10); EOSINOPHILS # (AUTO) 0.3 10^3/uL (0.0-0.3); EOSINOPHILS % (AUTO) 6 % (0-10); HEMATOCRIT 39 % (35-52); HEMOGLOBIN 12.3 G/DL (11.5-16.0); LYMPHOCYTES # (AUTO) 1.6 X 10^3 (1.0-4.0); LYMPHOCYTES % (AUTO) 27 % (12-44); MEAN CORPUSCULAR HEMOGLOBIN 29 PG (25-34); MEAN CORPUSCULAR HGB CONC 32 G/DL (32-36); MEAN CORPUSCULAR VOLUME 89 FL (80-99); MEAN PLATELET VOLUME 10.7 FL (7.4-10.4); MONOCYTES # (AUTO) 0.5 X 10^3 (0.0-1.0); MONOCYTES % (AUTO) 8 % (0-12); NEUTROPHILS # (AUTO) 3.4 X 10^3 (1.8-7.8); NEUTROPHILS % (AUTO) 59 % (42-75); PLATELET COUNT 333 10^3/uL (130-400); RED CELL DISTRIBUTION WIDTH 15.3 % (10.0-14.5); WHITE BLOOD COUNT 5.8 10^3/uL (4.3-11.0)
[2018-10-09 11:02] LABS: ALANINE AMINOTRANSFERASE 63 U/L (0-55); ALBUMIN 4.2 GM/DL (3.2-4.5); ALKALINE PHOSPHATASE 151 U/L (40-136); BILIRUBIN,TOTAL 0.3 MG/DL (0.1-1.0); BUN/CREATININE RATIO 20; CALCIUM 11.4 MG/DL (8.5-10.1); CARBON DIOXIDE 28 MMOL/L (21-32); CHLORIDE 107 MMOL/L (98-107); CREATININE SERUM 0.84 MG/DL (0.60-1.30); GFR ESTIMATED > 60; GLUCOSE 146 MG/DL (70-105); POTASSIUM 4.1 MMOL/L (3.6-5.0); SODIUM 144 MMOL/L (135-145); TOTAL PROTEIN 6.8 GM/DL (6.4-8.2)
== END 2018-10-09 10:11 | disposition home or self-care (01) ==
LOC: ONC 14:51
PROVIDERS: ATTEND Internal Medicine Hematology & Oncology
DX: C79.51 Secondary malignant neoplasm of bone (principal); Z85.3 Personal history of malignant neoplasm of breast; R91.8 Other nonspecific abnormal finding of lung field; E03.9 Hypothyroidism, unspecified; I10 Essential (primary) hypertension; J44.9 Chronic obstructive pulmonary disease, unspecified; F17.210 Nicotine dependence, cigarettes, uncomplicated; Z90.11 Acquired absence of right breast and nipple; Z92.21 Personal history of antineoplastic chemotherapy; Z79.899 Other long term (current) drug therapy
CPT/HCPCS: 36415; 80053; 85025; 86300; 99213

== ENCOUNTER → 2018-10-09 | Outpatient (CLI) | payer MEDICARE, MEDICAID | LOC: LAB 10:19 | PROVIDERS: ATTEND Nurse Practitioner Family | DX: J44.9 Chronic obstructive pulmonary disease, unspecified (principal) ==

== ENCOUNTER → 2018-10-09 | Outpatient (CLI) | payer MEDICARE, MEDICAID ==
[2018-10-09 12:40] LABS: ABG BASE EXCESS 3.8 MMOL/L (-2.5-2.5); ABG OXYGEN SATURATION 94 % (94-100); ABG PCO2 45 MMHG (35-45); ABG PH 7.41 (7.37-7.43); ABG PO2 78 MMHG (79-93); ABG TCO2 29.8 MMOL/L (21.0-31.0)
[2018-10-09 12:41] LABS: ALLENS TEST YES-POS; INSPIRED O2 2; PATIENT TEMP 97.1; VENTILATOR NO
== END ==
LOC: LAB 11:47
PROVIDERS: ATTEND Nurse Practitioner Family
DX: J44.9 Chronic obstructive pulmonary disease, unspecified (principal)
CPT/HCPCS: 36600; 82805

== ENCOUNTER → 2018-11-24 | Outpatient (CLI) | payer MEDICARE, MEDICAID ==
[~2018-11-24] MED LIST changes: +CATHETER FLUSH 10 ML SYR IV PRN
--- NOTE | 2018-11-24 14:05 | Diagnostic Imaging Report ---
PROCEDURE: CT chest, abdomen, and pelvis with contrast. TECHNIQUE: Multiple contiguous axial images were obtained through the chest, abdomen, and pelvis after the administration of intravenous contrast. Auto Exposure Controls were utilized during the CT exam to meet ALARA standards for radiation dose reduction. DATE: November 24, 2018. COMPARISON: CT neck, chest, abdomen, and pelvis of August 25, 2018. April 23, 2018. CT chest and abdomen of February 12, 2017. INDICATION: 63-year-old female with history of right breast cancer with bone metastasis. FINDINGS: There is a 6 mm noncalcified right upper lobe pulmonary nodule on axial image 38 which is unchanged. There is a somewhat nodular opacity in the right middle lobe measuring 8 mm in size on axial image 50 which is unchanged. There is a 3 mm right lower lobe pulmonary nodule on axial image 56 which is unchanged. There is a 3 mm noncalcified left lower lobe pulmonary nodule which is unchanged on axial image 63. There is a 2 mm pleurally based left lower lobe pulmonary nodule which is unchanged on axial image 45. There are predominantly linear opacities in the right lower lobe and right upper lobe which most likely reflect scarring and/or atelectasis. The above-mentioned pulmonary nodules are stable in size since at least April 2018. There is no new or enlarging pulmonary nodule. Mild linear opacities in the left upper lobe and left lower lobe also likely reflect atelectasis or scarring. There is no pneumothorax. There is no pleural effusion. There is no identified large central pulmonary embolus. There is limited assessment for segmental and subsegmental pulmonary emboli. The heart is not grossly enlarged. There is no pericardial effusion. There are atherosclerotic calcifications. The left common carotid artery appears to be occluded. There is extensive calcified plaque at the level of the right common carotid artery versus a stent graft. This is a change since April 23, 2018. Recommend correlation. There is no identified abnormally enlarged mediastinal, hilar, or axillary lymph node which meets CT size criteria for adenopathy. The patient is status post right mastectomy. There is diffuse fatty infiltration of the liver. The outer liver contours are not grossly nodular. There is no identified concerning focal liver lesion. The main, right, and left portal veins are patent. The gallbladder is unremarkable. There is no intrahepatic or extrahepatic bile duct dilation. The main pancreatic duct is not abnormally dilated. Unremarkable appearance of the pancreatic parenchyma. The spleen is normal in size. There is a left adrenal nodule on axial image 94 which measures 11 mm in size. This is stable in size since at least April 2018. Prior internal attenuation on the precontrast portion of the exam was 20 Hounsfield units. This is technically an indeterminate adrenal nodule. The right adrenal gland is unremarkable in appearance. Unremarkable appearance of the renal parenchyma. The urinary collecting systems are not distended. There is no identified renal or ureteral stone. The urinary bladder is unremarkable in appearance. The intestinal tract is not distended. There is no free intraperitoneal air. There is no drainable fluid collection. There is no free pelvic fluid. There is no identified abnormally enlarged lymph node in the abdomen or pelvis which meets CT size criteria for adenopathy. There are numerous sclerotic lesions involving the bilateral proximal femurs, pelvic bones, and sacrum. There is new bone destruction along the anterior aspect of the left iliac bone on axial image 170 lateral to the left sacroiliac joint. Otherwise, the appearance of the osseous metastases at the level of the pelvis is largely unchanged. There are numerous sclerotic lesions of the lumbar spine, thoracic spine, ribs, right and left scapula, left clavicle, and left proximal humerus. There is bone destruction involving the superior endplate of L3 which is unchanged since at least August 2018. The overall extent of extensive bone metastases in these regions is essentially unchanged since August 2018. The left proximal humeral lesion is not included in the [id number] on prior imaging. IMPRESSION: 1. Extensive multifocal bone metastasis as described above. There is increasing destruction of the anterior aspect of the left iliac bone near the sacroiliac joint which likely relates to progression of bone metastasis at this specific site. Otherwise, the extent of bone metastases is largely unchanged since August 25, 2018. There is a lesion partially imaged involving the left proximal humerus which is not in the included [id number] on prior imaging. 2. Stable bilateral pulmonary nodules since at least April 2018. 3. Status post right mastectomy. 4. Diffuse fatty infiltration of the liver. 5. 11 mm indeterminate left adrenal nodule, stable in size since April 2018. 6. The left common carotid artery appears occluded. Recommend correlation for possible symptoms and dedicated CT angiography of the neck with intravenous contrast for further assessment if this is not a known finding. POTENTIAL CRITICAL RESULT. Faxed to [facility] at 2:32 p.m. by husseinb Dictated by: Dictated on workstation # [id number]
--- NOTE | 2018-11-24 23:22 | Diagnostic Imaging Report ---
EXAMINATION: Nuclear medicine whole body bone scan INDICATION: Carcinoma of the right breast This study was performed following administration of 27.0 mCi of 99 m technetium MDP. Anterior and posterior whole-body images were obtained. Spot films of the calvarium and thorax were also performed in the lateral projection. The prior nuclear medicine bone scan performed on 08/25/2018 noted abnormal uptake involving the posterior skull, the thoracic and lumbar spine and the right eighth rib. These findings were felt to be related to metastatic disease. On this exam, the overall appearance of the bone scan does not seem to have changed significantly. No new area of abnormal uptake has developed. However, the CT chest, abdomen, and pelvis exam performed in conjunction with the study did indicate greater destruction of the left iliac wing by neoplastic disease. That finding is difficult to appreciate on this exam. The CT exam also showed extensive metastatic disease involving the pelvis. Those lesions are not well appreciated on the study either. Both kidneys do show excretion of the radiotracer. IMPRESSION: 1. The appearance of the bone scan is stable compared to the prior stud. There is no new area of abnormal uptake identified. 2. The destruction of the left iliac wing and the extensive neoplastic disease involving the bony pelvis seen on the CT chest, abdomen, and pelvis exam performed in conjunction with the study are not well appreciated on this exam. Dictated by: Dictated on workstation # [id number]
== END ==
LOC: CARD 11:13
PROVIDERS: ATTEND Nurse Practitioner Adult Health
DX: C50.411 Malignant neoplasm of upper-outer quadrant of right female breast (principal); C79.51 Secondary malignant neoplasm of bone; R52 Pain, unspecified
CPT/HCPCS: 71260; 74177; 78306

== ENCOUNTER 2018-12-23 13:57 | Outpatient (RCR) | payer MEDICARE, MEDICAID ==
[2018-11-13 10:12] LABS: BASOPHILS % (AUTO) 0 % (0-10); EOSINOPHILS # (AUTO) 0.3 10^3/uL (0.0-0.3); EOSINOPHILS % (AUTO) 6 % (0-10); HEMATOCRIT 38 % (35-52); HEMOGLOBIN 12.2 G/DL (11.5-16.0); LYMPHOCYTES # (AUTO) 1.3 X 10^3 (1.0-4.0); LYMPHOCYTES % (AUTO) 28 % (12-44); MEAN CORPUSCULAR HEMOGLOBIN 28 PG (25-34); MEAN CORPUSCULAR HGB CONC 32 G/DL (32-36); MEAN CORPUSCULAR VOLUME 89 FL (80-99); MEAN PLATELET VOLUME 10.9 FL (7.4-10.4); MONOCYTES # (AUTO) 0.4 X 10^3 (0.0-1.0); MONOCYTES % (AUTO) 8 % (0-12); NEUTROPHILS # (AUTO) 2.8 X 10^3 (1.8-7.8); NEUTROPHILS % (AUTO) 58 % (42-75); PLATELET COUNT 307 10^3/uL (130-400); RED CELL DISTRIBUTION WIDTH 15.1 % (10.0-14.5); WHITE BLOOD COUNT 4.9 10^3/uL (4.3-11.0)
[2018-11-13 10:32] LABS: ALANINE AMINOTRANSFERASE 58 U/L (0-55); ALKALINE PHOSPHATASE 160 U/L (40-136); BILIRUBIN,TOTAL 0.3 MG/DL (0.1-1.0); BUN/CREATININE RATIO 18; CARBON DIOXIDE 25 MMOL/L (21-32); CHLORIDE 107 MMOL/L (98-107); CREATININE SERUM 0.83 MG/DL (0.60-1.30); GFR ESTIMATED > 60; GLUCOSE 146 MG/DL (70-105); SODIUM 142 MMOL/L (135-145); TOTAL PROTEIN 6.7 GM/DL (6.4-8.2)
[~2018-12-23 13:57] MED LIST changes: -CATHETER FLUSH 10 ML SYR IV PRN
[2018-12-23 14:30] LABS: BASOPHILS % (AUTO) 0 % (0-10); EOSINOPHILS # (AUTO) 0.6 10^3/uL (0.0-0.3); EOSINOPHILS % (AUTO) 14 % (0-10); HEMATOCRIT 38 % (35-52); LYMPHOCYTES # (AUTO) 0.8 X 10^3 (1.0-4.0); LYMPHOCYTES % (AUTO) 19 % (12-44); MEAN CORPUSCULAR HEMOGLOBIN 28 PG (25-34); MEAN CORPUSCULAR HGB CONC 31 G/DL (32-36); MEAN CORPUSCULAR VOLUME 90 FL (80-99); MEAN PLATELET VOLUME 10.5 FL (7.4-10.4); MONOCYTES # (AUTO) 0.4 X 10^3 (0.0-1.0); MONOCYTES % (AUTO) 10 % (0-12); NEUTROPHILS # (AUTO) 2.4 X 10^3 (1.8-7.8); NEUTROPHILS % (AUTO) 57 % (42-75); PLATELET COUNT 257 10^3/uL (130-400); RED CELL DISTRIBUTION WIDTH 14.5 % (10.0-14.5); WHITE BLOOD COUNT 4.2 10^3/uL (4.3-11.0)
[2018-12-23 14:49] LABS: ALANINE AMINOTRANSFERASE 48 U/L (0-55); ALBUMIN 3.7 GM/DL (3.2-4.5); ALKALINE PHOSPHATASE 145 U/L (40-136); BILIRUBIN,TOTAL 0.3 MG/DL (0.1-1.0); BUN/CREATININE RATIO 15; CALCIUM 10.7 MG/DL (8.5-10.1); CARBON DIOXIDE 30 MMOL/L (21-32); CHLORIDE 104 MMOL/L (98-107); CREATININE SERUM 0.81 MG/DL (0.60-1.30); GFR ESTIMATED > 60; GLUCOSE 152 MG/DL (70-105); SODIUM 144 MMOL/L (135-145); TOTAL PROTEIN 6.4 GM/DL (6.4-8.2)
[2018-12-23] MEDS ORDERED: FULVESTRANT 250 MG/5 ML SYR (CANCER CENTER) IM SCH (16:00)
== END 2019-01-07 | disposition home or self-care (01) ==
LOC: ONC 13:57
PROVIDERS: ATTEND Internal Medicine Hematology & Oncology
DX: C79.51 Secondary malignant neoplasm of bone (principal); Z85.3 Personal history of malignant neoplasm of breast; R91.8 Other nonspecific abnormal finding of lung field; E83.52 Hypercalcemia; I25.10 Atherosclerotic heart disease of native coronary artery without angina pectoris; E03.9 Hypothyroidism, unspecified; I10 Essential (primary) hypertension; I65.21 Occlusion and stenosis of right carotid artery; J44.9 Chronic obstructive pulmonary disease, unspecified; I69.354 Hemiplegia and hemiparesis following cerebral infarction affecting left non-dominant side; Z87.891 Personal history of nicotine dependence; Z90.11 Acquired absence of right breast and nipple; Z92.21 Personal history of antineoplastic chemotherapy; Z79.899 Other long term (current) drug therapy; Z79.02 Long term (current) use of antithrombotics/antiplatelets; Z79.82 Long term (current) use of aspirin; Z79.84 Long term (current) use of oral hypoglycemic drugs; Z99.81 Dependence on supplemental oxygen
CPT/HCPCS: 36415; 77290; 77295; 77300; 77334; 77336; 77417; 77470; 80053; 85025; 86300; 96402; 99204; 99213

== ENCOUNTER → 2018-12-31 | Outpatient (CLI) | payer MEDICARE, MEDICAID ==
[~2018-12-31] MED LIST changes: +RT-ALBUTEROL SULF 2.5 MG/3 ML PRE-MIX VIAL INH ONE
== END ==
LOC: RT 09:03
PROVIDERS: ATTEND Nurse Practitioner Family
DX: J30.9 Allergic rhinitis, unspecified (principal); C50.919 Malignant neoplasm of unspecified site of unspecified female breast; G47.10 Hypersomnia, unspecified; J98.4 Other disorders of lung; R91.1 Solitary pulmonary nodule
CPT/HCPCS: 94060; 94726; 94729

== ENCOUNTER 2019-04-01 08:42 | Outpatient (RCR) | payer MEDICARE, MEDICAID ==
[2019-01-20 14:04] LABS: BASOPHILS # (AUTO) 0.1 10^3/uL (0.0-0.1); BASOPHILS % (AUTO) 2 % (0-10); EOSINOPHILS # (AUTO) 0.1 10^3/uL (0.0-0.3); EOSINOPHILS % (AUTO) 3 % (0-10); HEMATOCRIT 34 % (35-52); HEMOGLOBIN 10.4 G/DL (11.5-16.0); LYMPHOCYTES # (AUTO) 0.8 X 10^3 (1.0-4.0); LYMPHOCYTES % (AUTO) 24 % (12-44); MEAN CORPUSCULAR HEMOGLOBIN 29 PG (25-34); MEAN CORPUSCULAR HGB CONC 31 G/DL (32-36); MEAN CORPUSCULAR VOLUME 94 FL (80-99); MEAN PLATELET VOLUME 10.3 FL (7.4-10.4); MONOCYTES # (AUTO) 0.4 X 10^3 (0.0-1.0); MONOCYTES % (AUTO) 14 % (0-12); NEUTROPHILS # (AUTO) 1.8 X 10^3 (1.8-7.8); NEUTROPHILS % (AUTO) 58 % (42-75); PLATELET COUNT 444 10^3/uL (130-400); WHITE BLOOD COUNT 3.2 10^3/uL (4.3-11.0)
[2019-01-20 14:22] LABS: ALANINE AMINOTRANSFERASE 27 U/L (0-55); ALBUMIN 3.9 GM/DL (3.2-4.5); ALKALINE PHOSPHATASE 157 U/L (40-136); BILIRUBIN,TOTAL 0.2 MG/DL (0.1-1.0); BUN/CREATININE RATIO 13; CARBON DIOXIDE 28 MMOL/L (21-32); CHLORIDE 104 MMOL/L (98-107); CREATININE SERUM 0.91 MG/DL (0.60-1.30); GFR ESTIMATED > 60; GLUCOSE 160 MG/DL (70-105); POTASSIUM 4.1 MMOL/L (3.6-5.0); SODIUM 141 MMOL/L (135-145); TOTAL PROTEIN 6.8 GM/DL (6.4-8.2)
[2019-02-24 10:45] LABS: BASOPHILS % (AUTO) 0 % (0-10); EOSINOPHILS # (AUTO) 0.3 10^3/uL (0.0-0.3); EOSINOPHILS % (AUTO) 7 % (0-10); HEMATOCRIT 38 % (35-52); HEMOGLOBIN 11.6 G/DL (11.5-16.0); LYMPHOCYTES # (AUTO) 0.8 X 10^3 (1.0-4.0); LYMPHOCYTES % (AUTO) 19 % (12-44); MEAN CORPUSCULAR HEMOGLOBIN 28 PG (25-34); MEAN CORPUSCULAR HGB CONC 31 G/DL (32-36); MEAN CORPUSCULAR VOLUME 92 FL (80-99); MEAN PLATELET VOLUME 10.8 FL (7.4-10.4); MONOCYTES # (AUTO) 0.3 X 10^3 (0.0-1.0); MONOCYTES % (AUTO) 8 % (0-12); NEUTROPHILS # (AUTO) 2.9 X 10^3 (1.8-7.8); NEUTROPHILS % (AUTO) 66 % (42-75); PLATELET COUNT 291 10^3/uL (130-400); RED CELL DISTRIBUTION WIDTH 17.1 % (10.0-14.5); WHITE BLOOD COUNT 4.4 10^3/uL (4.3-11.0)
[2019-02-24 11:04] LABS: ALANINE AMINOTRANSFERASE 30 U/L (0-55); ALBUMIN 4.1 GM/DL (3.2-4.5); ALKALINE PHOSPHATASE 155 U/L (40-136); BILIRUBIN,TOTAL 0.3 MG/DL (0.1-1.0); BUN/CREATININE RATIO 11; CALCIUM 10.9 MG/DL (8.5-10.1); CARBON DIOXIDE 31 MMOL/L (21-32); CHLORIDE 103 MMOL/L (98-107); CREATININE SERUM 0.79 MG/DL (0.60-1.30); GFR ESTIMATED > 60; GLUCOSE 129 MG/DL (70-105); POTASSIUM 4.2 MMOL/L (3.6-5.0); SODIUM 141 MMOL/L (135-145); TOTAL PROTEIN 7.1 GM/DL (6.4-8.2)
[2019-03-17 09:42] LABS: BASOPHILS % (AUTO) 1 % (0-10); EOSINOPHILS # (AUTO) 0.1 10^3/uL (0.0-0.3); EOSINOPHILS % (AUTO) 5 % (0-10); HEMATOCRIT 32 % (35-52); HEMOGLOBIN 10.1 G/DL (11.5-16.0); LYMPHOCYTES # (AUTO) 0.7 X 10^3 (1.0-4.0); LYMPHOCYTES % (AUTO) 32 % (12-44); MEAN CORPUSCULAR HEMOGLOBIN 29 PG (25-34); MEAN CORPUSCULAR HGB CONC 31 G/DL (32-36); MEAN CORPUSCULAR VOLUME 92 FL (80-99); MEAN PLATELET VOLUME 10.4 FL (7.4-10.4); MONOCYTES # (AUTO) 0.1 X 10^3 (0.0-1.0); MONOCYTES % (AUTO) 5 % (0-12); NEUTROPHILS # (AUTO) 1.3 X 10^3 (1.8-7.8); NEUTROPHILS % (AUTO) 58 % (42-75); PLATELET COUNT 243 10^3/uL (130-400); RED CELL DISTRIBUTION WIDTH 16.8 % (10.0-14.5); WHITE BLOOD COUNT 2.2 10^3/uL (4.3-11.0)
[2019-03-17 10:00] LABS: ALANINE AMINOTRANSFERASE 14 U/L (0-55); ALBUMIN 3.6 GM/DL (3.2-4.5); ALKALINE PHOSPHATASE 127 U/L (40-136); BILIRUBIN,TOTAL 0.4 MG/DL (0.1-1.0); BUN/CREATININE RATIO 17; CARBON DIOXIDE 28 MMOL/L (21-32); CHLORIDE 107 MMOL/L (98-107); CREATININE SERUM 0.83 MG/DL (0.60-1.30); GFR ESTIMATED > 60; GLUCOSE 179 MG/DL (70-105); POTASSIUM 3.9 MMOL/L (3.6-5.0); SODIUM 143 MMOL/L (135-145); TOTAL PROTEIN 6.1 GM/DL (6.4-8.2)
[~2019-04-01 08:42] MED LIST changes: +FULVESTRANT 250 MG/5 ML SYR (CANCER CENTER) IM SCH; -RT-ALBUTEROL SULF 2.5 MG/3 ML PRE-MIX VIAL INH ONE; +fentaNYL INJ 100 MCG/2 ML (CANCER CENTER) INJ ONE
[2019-04-01 14:02] LABS: BASOPHILS % (AUTO) 1 % (0-10); EOSINOPHILS # (AUTO) 0.1 10^3/uL (0.0-0.3); EOSINOPHILS % (AUTO) 4 % (0-10); HEMATOCRIT 34 % (35-52); HEMOGLOBIN 10.5 G/DL (11.5-16.0); LYMPHOCYTES # (AUTO) 0.7 X 10^3 (1.0-4.0); LYMPHOCYTES % (AUTO) 38 % (12-44); MEAN CORPUSCULAR HEMOGLOBIN 29 PG (25-34); MEAN CORPUSCULAR HGB CONC 31 G/DL (32-36); MEAN CORPUSCULAR VOLUME 93 FL (80-99); MEAN PLATELET VOLUME 9.6 FL (7.4-10.4); MONOCYTES # (AUTO) 0.1 X 10^3 (0.0-1.0); MONOCYTES % (AUTO) 7 % (0-12); NEUTROPHILS # (AUTO) 0.9 X 10^3 (1.8-7.8); NEUTROPHILS % (AUTO) 50 % (42-75); PLATELET COUNT 352 10^3/uL (130-400); WHITE BLOOD COUNT 1.8 10^3/uL (4.3-11.0)
[2019-04-01 14:20] LABS: ALANINE AMINOTRANSFERASE 20 U/L (0-55); ALBUMIN 3.7 GM/DL (3.2-4.5); ALKALINE PHOSPHATASE 131 U/L (40-136); BILIRUBIN,TOTAL 0.2 MG/DL (0.1-1.0); BUN/CREATININE RATIO 13; CALCIUM 10.4 MG/DL (8.5-10.1); CARBON DIOXIDE 33 MMOL/L (21-32); CHLORIDE 106 MMOL/L (98-107); GFR ESTIMATED > 60; GLUCOSE 122 MG/DL (70-105); POTASSIUM 3.8 MMOL/L (3.6-5.0); SODIUM 145 MMOL/L (135-145); TOTAL PROTEIN 6.6 GM/DL (6.4-8.2)
== END 2019-04-20 | disposition home or self-care (01) ==
LOC: ONC 08:42
PROVIDERS: ATTEND Internal Medicine Hematology & Oncology
DX: C79.51 Secondary malignant neoplasm of bone (principal); Z85.3 Personal history of malignant neoplasm of breast; R91.8 Other nonspecific abnormal finding of lung field; E83.52 Hypercalcemia; I25.10 Atherosclerotic heart disease of native coronary artery without angina pectoris; E03.9 Hypothyroidism, unspecified; I10 Essential (primary) hypertension; I65.21 Occlusion and stenosis of right carotid artery; J44.9 Chronic obstructive pulmonary disease, unspecified; I69.354 Hemiplegia and hemiparesis following cerebral infarction affecting left non-dominant side; Z87.891 Personal history of nicotine dependence; Z90.11 Acquired absence of right breast and nipple; Z92.21 Personal history of antineoplastic chemotherapy; Z79.899 Other long term (current) drug therapy; Z79.02 Long term (current) use of antithrombotics/antiplatelets; Z79.82 Long term (current) use of aspirin; Z79.84 Long term (current) use of oral hypoglycemic drugs; Z99.81 Dependence on supplemental oxygen
CPT/HCPCS: 36415; 80053; 85025; 86300; 96374; 96402; 99213

== ENCOUNTER 2019-06-30 13:41 | Outpatient (RCR) | payer MEDICARE, MEDICAID ==
[2019-05-07 09:40] LABS: BASOPHILS % (AUTO) 0 % (0-10); EOSINOPHILS # (AUTO) 0.4 10^3/uL (0.0-0.3); EOSINOPHILS % (AUTO) 5 % (0-10); HEMATOCRIT 34 % (35-52); HEMOGLOBIN 10.5 G/DL (11.5-16.0); LYMPHOCYTES # (AUTO) 0.9 X 10^3 (1.0-4.0); LYMPHOCYTES % (AUTO) 12 % (12-44); MEAN CORPUSCULAR HEMOGLOBIN 28 PG (25-34); MEAN CORPUSCULAR HGB CONC 31 G/DL (32-36); MEAN CORPUSCULAR VOLUME 93 FL (80-99); MEAN PLATELET VOLUME 10.9 FL (7.4-10.4); MONOCYTES # (AUTO) 0.5 X 10^3 (0.0-1.0); MONOCYTES % (AUTO) 7 % (0-12); NEUTROPHILS % (AUTO) 76 % (42-75); PLATELET COUNT 315 10^3/uL (130-400); WHITE BLOOD COUNT 7.9 10^3/uL (4.3-11.0)
[2019-05-07 10:04] LABS: ALANINE AMINOTRANSFERASE 26 U/L (0-55); ALBUMIN 3.7 GM/DL (3.2-4.5); ALKALINE PHOSPHATASE 160 U/L (40-136); BILIRUBIN,TOTAL 0.3 MG/DL (0.1-1.0); BUN/CREATININE RATIO 16; CARBON DIOXIDE 28 MMOL/L (21-32); CHLORIDE 105 MMOL/L (98-107); CREATININE SERUM 0.74 MG/DL (0.60-1.30); GFR ESTIMATED > 60; GLUCOSE 119 MG/DL (70-105); POTASSIUM 3.9 MMOL/L (3.6-5.0); SODIUM 141 MMOL/L (135-145); TOTAL PROTEIN 6.4 GM/DL (6.4-8.2)
[~2019-06-30 13:41] MED LIST changes: -fentaNYL INJ 100 MCG/2 ML (CANCER CENTER) INJ ONE
[2019-06-30 14:31] LABS: BASOPHILS % (AUTO) 0 % (0-10); EOSINOPHILS # (AUTO) 0.2 10^3/uL (0.0-0.3); EOSINOPHILS % (AUTO) 2 % (0-10); HEMATOCRIT 38 % (35-52); HEMOGLOBIN 11.7 G/DL (11.5-16.0); LYMPHOCYTES % (AUTO) 12 % (12-44); MEAN CORPUSCULAR HEMOGLOBIN 28 PG (25-34); MEAN CORPUSCULAR HGB CONC 31 G/DL (32-36); MEAN CORPUSCULAR VOLUME 89 FL (80-99); MEAN PLATELET VOLUME 10.3 FL (7.4-10.4); MONOCYTES # (AUTO) 0.4 X 10^3 (0.0-1.0); MONOCYTES % (AUTO) 6 % (0-12); NEUTROPHILS # (AUTO) 6.4 X 10^3 (1.8-7.8); NEUTROPHILS % (AUTO) 80 % (42-75); PLATELET COUNT 301 10^3/uL (130-400); RED CELL DISTRIBUTION WIDTH 17.6 % (10.0-14.5)
[2019-06-30 14:48] LABS: ALANINE AMINOTRANSFERASE 24 U/L (0-55); ALBUMIN 4.2 GM/DL (3.2-4.5); ALKALINE PHOSPHATASE 129 U/L (40-136); BILIRUBIN,TOTAL 0.3 MG/DL (0.1-1.0); BUN/CREATININE RATIO 12; CALCIUM 11.5 MG/DL (8.5-10.1); CARBON DIOXIDE 29 MMOL/L (21-32); CHLORIDE 101 MMOL/L (98-107); CREATININE SERUM 0.89 MG/DL (0.60-1.30); GFR ESTIMATED > 60; GLUCOSE 140 MG/DL (70-105); POTASSIUM 3.9 MMOL/L (3.6-5.0); SODIUM 143 MMOL/L (135-145); TOTAL PROTEIN 7.4 GM/DL (6.4-8.2)
== END 2019-08-05 | disposition home or self-care (01) ==
LOC: ONC 13:41
PROVIDERS: ATTEND Internal Medicine Hematology & Oncology
DX: Z09 Encounter for follow-up examination after completed treatment for conditions other than malignant neoplasm (principal); Z85.3 Personal history of malignant neoplasm of breast; R91.8 Other nonspecific abnormal finding of lung field; E83.52 Hypercalcemia; I25.10 Atherosclerotic heart disease of native coronary artery without angina pectoris; E03.9 Hypothyroidism, unspecified; I10 Essential (primary) hypertension; I65.21 Occlusion and stenosis of right carotid artery; J44.9 Chronic obstructive pulmonary disease, unspecified; I69.354 Hemiplegia and hemiparesis following cerebral infarction affecting left non-dominant side; Z87.891 Personal history of nicotine dependence; Z90.11 Acquired absence of right breast and nipple; Z92.21 Personal history of antineoplastic chemotherapy; Z79.899 Other long term (current) drug therapy; Z79.02 Long term (current) use of antithrombotics/antiplatelets; Z79.82 Long term (current) use of aspirin; Z79.84 Long term (current) use of oral hypoglycemic drugs; Z99.81 Dependence on supplemental oxygen; C79.51 Secondary malignant neoplasm of bone; Z92.3 Personal history of irradiation
CPT/HCPCS: 36415; 80053; 85025; 86300; 96402